=== PATIENT | female | born 1965 | race African-American/Black ===

== ENCOUNTER 2022-07-31 11:39 | Emergency (ER) | payer OTHER, SELFPAY ==
[2022-07-31 11:57] VITALS: BP 116/62; PULSE 70; RESP 15; TEMP 36.5; O2SAT 100
--- NOTE | 2022-07-31 12:26 | ED.GENADULT ---
HPI - General Adult General Chief complaint: Abdominal Pain Stated complaint: nausea after taking abx, cp - feels like heartburn Time Seen by Provider: 07/31/22 11:55 History of Present Illness HPI narrative: This is a 57-year-old female presenting to the ED after having a root canal several days ago. Since then she has been having continued pain. She has been on multiple antibiotics including Septra and a fragile, a Medrol Dosepak and was recently prescribed Tylenol with codeine. After she took Tylenol codeine she felt nauseous and felt like she could not stand. She then called an ambulance and was brought to the emergency department. the patient was concerned that she was having an allergic reaction. She did not develop urticarial hives, wheezing, sensation of throat closure or diarrhea. She did say that she felt like she was having trouble breathing and some burning chest pain that has since resolved. At this time the patient states she has not slept in a week due to dental pain. She would like to get her pain under control and then go home to follow-up with her oral surgeon outpatient. Related Data Home Medications Medication Instructions Recorded Confirmed adalimumab 40 mg/0.8 mL 40 mg subcut ONCE 04/15/22 subcutaneous syringe kit (Humira) azathioprine 50 mg tablet 50 mg PO DAILY 04/15/22 calcium citrate 315 mg 1 tablet PO DAILY 04/15/22 calcium-vitamin D3 6.25 mcg (250 unit) tablet (Citracal + Vitamin D Maximum) hydroxyzine HCl 25 mg tablet 25 mg PO QID PRN 04/15/22 prednisolone 5 mg tablet 2.5 mg PO BID 04/15/22 Allergies Allergy/AdvReac Type Severity Reaction Status Date / Time No Known Allergies Allergy Verified 04/15/22 10:20 Review of Systems Review of Systems: CONSTITUTIONAL: Denies night sweats. EYES: No eye pain ENT: Denies rhinorrhea CARDIOVASCULAR: Denies palpitations RESPIRATORY: Denies hemoptysis GASTROINTESTINAL: Denies hematemesis GENITOURINARY: Denies hematuria. SKIN: Denies rash MUSCULOSKELETAL: Denies myalgia. NEUROLOGIC: Denies weakness. PSYCHIATRIC: Denies delusions PMFSH Past Medical History Medical History Anxiety Crohn disease Ulcer Surgical History Surgical History S/P laparoscopic surgery S/P partial hysterectomy Tubal ligation status Family History Family History Other Asthma Cerebrovascular accident Diabetes mellitus Hypertension Social History Social History Smoking status: Never smoker Alcohol intake: never Substance use: never Exam Narrative: APPEARANCE: No apparent distress. HEENT: EYES: PERRLA/EOMI, NOSE: Normal no drainage NECK: Supple, Trachea midline RESPIRATORY: CTAB, No increased work of breathing. CARDIOVASCULAR: S1S2 appreciated ABDOMINAL: Soft, nontender, nondistended, MUSCULOSKELETAl: No obvious deformities NEURO: Alert. Moving 4/4 extremities SKIN:: Warm, dry. Normal color PSYCHIATRIC: Normal affect Course Vital Signs Vital signs: Vital Signs Temperature 97.7 F 07/31/22 11:57 Pulse Rate 70 07/31/22 11:57 Respiratory Rate 15 07/31/22 11:57 Blood Pressure 116/62 07/31/22 11:57 Pulse Oximetry 100 07/31/22 11:57 Temperature 97.7 F 07/31/22 11:57 Pulse Rate 81 07/31/22 13:07 Respiratory Rate 14 07/31/22 13:07 Blood Pressure 111/63 07/31/22 13:07 Pulse Oximetry 100 07/31/22 13:07 Medical Decision Making MDM Narrative Medical decision making narrative: This is a 57-year-old female presenting ED after having a poor reaction to codeine. It does not appear to be a true allergic reaction is there are no hives, wheezing, GI symptoms and it resolved rather quickly. After speaking with the patient further appears that she is exhausted and she has
--- NOTE | 2022-07-31 12:28 | ECG_ITS ---
Measurements Intervals [place] Rate: 69 P: 80 VA: 153 QRS: 74 QRSD: 78 T: 60 QT: 398 QTc: 427 Interpretive Statements SINUS RHYTHM NORMAL ECG NO PREVIOUS ECG AVAILABLE FOR COMPARISON Electronically Signed On 07-31-2022 13:23:15 CDT by Oni Moncada D.O.
[2022-07-31] MEDS: KETOROLAC 15 MG/ML VIAL (*BKC) IV PUSH (12:49)
[2022-07-31] MEDS: SODIUM CHLORIDE 0.9% IV 1,000 ML 999 ML IV CONT (12:51)
[2022-07-31 13:07] VITALS: BP 111/63; PULSE 81; RESP 14; O2SAT 100
[2022-07-31 13:07] LABS: Basophils Absolute Auto 0.1 K/mm3 (0.0-0.1); Basophils Percent Auto 0.7 % (0.2-1.2); Eosinophils Absolute Auto 0.1 K/mm3 (0-0.3); Eosinophils Percent Auto 0.5 % (0-4.4); Hematocrit 43.1 % (37.0-47.0); Hemoglobin 13.6 g/dL (12.0-15.0); Immature Granulocyte Absolute 0.05 K/mm3 (0.00-0.031); Immature Granulocyte Percent A 0.4 % (0-0.5); Lymphocytes Absolute Auto 3.93 K/mm3 (0.9-3.2); Mean Corpuscular HGB Conc 31.6 g/dl (32-36); Mean Corpuscular Hemoglobin 30.3 pg (26-34); Monocytes Absolute Auto 1.8 K/mm3 (0.1-0.6); Neutrophils Absolute Auto 8.1 K/mm3 (1.3-6.7); Neutrophils Percent Auto 57.4 % (45.5-73.1); Platelet Count Result 290 k/mm3 (150-375); Red Blood Count 4.49 M/mm3 (4.2-5.4); Red Cell Distribution Width 13.3 % (11.5-14.5); White Blood Count 14.1 K/mm3 (4.5-10.0)
[2022-07-31 13:19] LABS: Anion Gap 11 mmol/L (8-16); Blood Urea Nitrogen 16 mg/dL (7-17); Calcium 9.4 mg/dL (8.4-10.2); Carbon Dioxide 28 mmol/L (22-30); Chloride 102 mmol/L (98-107); Estimated CRCL calculation 65 ml/min; Estimated Glomerular Filt Rate > 60; Glucose 115 mg/dL (65-110); Potassium 3.7 mmol/L (3.4-5.0); Sodium 141 mmol/L (137-145)
[2022-07-31 14:41] VITALS: BP 106/86; PULSE 85; RESP 17; O2SAT 100
== END 2022-07-31 14:43 | disposition home or self-care (01) ==
PROVIDERS: Emergency Provider Emergency Medicine
DX: K08.89 Other specified disorders of teeth and supporting structures (principal); R11.0 Nausea; R53.1 Weakness; T40.2X5A Adverse effect of other opioids, initial encounter; Z98.818 Other dental procedure status; K50.90 Crohn's disease, unspecified, without complications
CPT/HCPCS: 36415; 80048; 85025; 93005; 96365; 96375; 99284; J0131; J1100; J1885; J7030

== ENCOUNTER 2024-05-09 10:24 | Outpatient (CLI) | payer OTHER, SELFPAY ==
[2024-05-09 10:59] LABS: Alanine Aminotransferase 19 U/L (6-35); Albumin Level 4.5 g/dL (3.5-5.1); Alkaline Phosphatase 112 U/L (38-126); Aspartate Amino Transferase 29 U/L (14-36); Bilirubin,Total 0.5 mg/dL (0.2-1.3)
== END 2024-05-09 10:25 | disposition home or self-care (01) ==
LOC: ANHLAB 10:25
PROVIDERS: Visit Provider Obstetrics & Gynecology
DX: R61 Generalized hyperhidrosis (principal); Z78.0 Asymptomatic menopausal state
CPT/HCPCS: 36415; 80076

== ENCOUNTER 2025-05-31 11:24 | Emergency (ER) | payer MEDICARE, OTHER, SELFPAY ==
--- NOTE | ~2025-05-31 | CT_ITS ---
EXAMINATION: CT orbit BI wo con DATE: 05/31/2025 17:05 INDICATION: Orbital cellulitis TECHNIQUE: Computed tomography (CT) of the orbits was performed without intravenous contrast. Automat ed exposure control and iterative reconstruction technique were employed. The dose-length product was 182.48 mGy-cm. COMPARISON: None FINDINGS: There appears to be mild preseptal edema along the inferior eyelid of the right orbit. Orbits are oth erwise normal with no post septal inflammatory stranding. No evident soft tissue gas or abscess. Mast oid air cells, middle ear cavities and paranasal sinuses are clear. Visualized maxillofacial bones ar e unremarkable with no fracture. Visualized portions of the parotid glands are normal and symmetric. Visualized portion of brain is unremarkable. IMPRESSION: 1. Mild right orbital preseptal edema along the inferior eyelid. Orbits are otherwise normal with no post septal stranding. Reviewed, dictated and finalized at location A. IMPRESSION: 1. Mild right orbital preseptal edema along the inferior eyelid. Orbits are oth erwise normal with no post septal stranding.
--- OUTSIDE RECORDS SUMMARY | 2025-05-31 11:28 | XMS_ITS | Encounter Summary ---
Author Organization [facility] Healthcare Address [address] [place] [address] Care Team Providers Care Package Collector Name Role Phone Abhijit Quispe MD Unavailable [phone] Robyn Richardson NP Unavailable [phone] Shruthi Oakley MD Unavailable [phone] Ivy Ugalde MD Unavailable [phone] Desirae Mukherjee [facility] Primary Care Provi phan Francisco Wild MD Unavailable [phone] Encounter Details Date Type Department Care Team (Late st Contact Info) Description 04/15/2025 Results Follow-Up [facility] Medical [facility] Family Medicine [address] [facility] [address] [place] [address] Desirae Mukherjee, [address] [place] [address] Dexa Axial Skeleton Bone Density 1 or 2 Site Social History Tobacco Use Types Packs/Day Years Used Date Smoking Tobacco: Never Smokeless Tobacco: Never Alcohol Use Standard Drinks/Week Comments No 0 (1 standard drink = 0.6 oz pur e alcohol) OASIS D0700: Social Isolation Answer Da te Recorded Frequency of experiencing loneliness or isolatio n Never 12/11/2022 OASIS A1250: Transportation Answer Date Recorded Lack of Transportation (Medical) No 12/11/2022 Lack of Transportation (Non-Medical) No 12/11/2022 Patient Unable or Declines to Respond No 12/11/2022 OASIS B1300: Health Literacy Answer Salty e Recorded Frequency of needing help to read materials from doctor or pharmacy Never 12/11/2022 AUDIT-C Answer Date Recorded Q1: How often do you have a drink containing alcohol? Never 03/15/2025 Q2: How many drinks containi ng alcohol do you have on a typical day when you are drinking? Patient does not drink Q3: How often do you have si x or more drinks on one occasion? Never 03/15/2025 PHQ-2 Answer Date Recorded PHQ-2 Total Score (If total score is 3 or more points, staff should administer the PHQ-9) 0 02/12/2025 Personal Safety Answer Date Recorded Have you ever been in or are you currently in a harmful physical or emotional relationship or is someone making you feel afraid or unsafe? Denies 03/14/2024 Comments No Sex and Gender Information Value Date Recorded Sex Assigned at Not on file Legal Sex Female 8:40 PM MANAGER FUNCTIONAL Gender Identity Female 01/27/2019 10:37 AM CDT Sexual Orientation Straight 10/10/2021 6: 35 AM MANAGER FUNCTIONAL documented as of this encounter Plan of Treatment Not on file documented as of this encounter Visit Diagnoses Not on filedocumented in this encounter Care Teams Package Collector Relationship Specialty Start Date End Date Desirae Mukherjee DNP [address] [facility] [address] [place] [address] [place] [address] PCP - General Family Medicine 02/12/25 Abhijit Quispe MD [phone] [place] [address] Surgeon Colon and Rectal Surgery 12/01/21 [place] [address] [place] [address] Nurse Practitioner Wound Care 02/27/23 [place] [address] [place] [address] Consulting Physician Dermatology 02/27/23 Ivy Ugalde MD [address] [facility] [address] [place] [address] Referring Physician Gastroenterology 04/22/24 Francisco Wild MD [address] [facility] [place] [address] Dermatology 03/27/25 documented as of this encounter
--- OUTSIDE RECORDS SUMMARY | 2025-05-31 11:28 | XMS_ITS | Encounter Summary ---
Author Organization [facility] Healthcare Address [address] [place] [address] Care Team Providers Care Direct Marketing Manager Name Role Phone Abhijit Quispe MD Unavailable [phone] Robyn Richardson NP Unavailable [phone] Shruthi Oakley MD Unavailable [phone] Ivy Ugalde MD Unavailable [phone] Desirae Mukherjee [facility] Primary Care Provi phan Francisco Wild MD Unavailable [phone] Reason for Visit * Reason Comments Eye Problem Right eye. Started T uesday and became worse last night. Has taken TYL. Very watery this morning. Encounter Details Date Type Department Care Team (Late st Contact Info) Description 05/31/2025 8:45 AM CDT Office Visit [facility] Medical [facility] Convenient Care at [address] [address] Lou Villeda PA [address] [place] [address] [address] [place] [address] Eye pain, right (Primary Dx) Social History Tobacco Use Types Packs/Day Years [...] on file Legal Sex Female 8:40 PM CURRICULUM ASSISTANT Gender Identity Female 01/27/2019 10:37 AM CDT Sexual Orientation Straight 10/10/2021 6: 35 AM CURRICULUM ASSISTANT documented as of this encounter Last Filed Vital Signs Vital Sign Reading Time Taken Comments Blood Pressure 132/74 05/31/2025 8:47 AM CDT Pulse 68 05/31/2025 8:47 AM CDT Temperature 36.5 C (97.7 F) 05/31/2025 8:47 AM CDT Respiratory Rate 20 05/31/2025 8:47 AM CDT Oxygen Saturation 98% 05/31/2025 8:47 AM CDT Inhaled Oxygen Concentration - - Weight 74.8 kg (165 lb) 05/31/2025 8:47 AM CDT Height 167.6 cm (5' 6) 05/31/2025 8:47 AM CDT Body Mass Index 26.63 05/31/2025 8:47 AM CDT documented in this encounter Plan of Treatment Not on file documented as of this encounter Visit Diagnoses Diagnosis Eye pain, right- Primary documented in this encounter Historical Medications * This list may reflect changes made after this encounter. upadacitinib (RINVOQ) 15 mg extended release tablet Take 1 tablet (15 mg total) by mouth daily 05/15/2025 added in this encounter Care Teams Direct Marketing Manager Relationship Specialty Start Date End Date Lonny Desirae JACOBY Michel [address] [facility] [place] [address] PCP - General Family Medicine 02/12/25 Abhijit Quispe MD [phone] [place] [address] Surgeon Colon and Rectal Surgery 12/01/21 [place] [address] [place] [address] Nurse Practitioner Wound Care 02/27/23 [place] [address] [place] [address] Consulting Physician Dermatology 02/27/23 Ivy Ugalde MD [address] [address] [place] [address] Referring Physician Gastroenterology 04/22/24 Francisco Wild MD [address] [facility] [place] [address] Dermatology 03/27/25 documented as of this encounter
--- OUTSIDE RECORDS SUMMARY | 2025-05-31 11:28 | XMS_ITS | Encounter Summary ---
Author Organization [facility] Healthcare Address [address] [place] [address] Care Team Providers Care Grazing Aide Name Role Phone Abhijit Quispe MD Unavailable [phone] Robyn Richardson NP Unavailable [phone] Shruthi Oakley MD Unavailable [phone] Ivy Ugalde MD Unavailable [phone] Desirae Mukherjee [facility] Primary Care Provi phan Francisco Wild MD Unavailable [phone] Encounter Details Date Type Department Care Team (Late st Contact Info) Description 04/15/2025 Results Follow-Up [facility] Medical Group Family Medicine [address] [facility] [address] [place] [address] Desirae Mukherjee, [address] [place] [address] Screening Mammogram Bilateral W Roney Social History Tobacco Use Types Packs/Day Years [...] on file Legal Sex Female 8:40 PM ARCHITECT NAVAL Gender Identity Female 01/27/2019 10:37 AM CDT Sexual Orientation Straight 10/10/2021 6: 35 AM ARCHITECT NAVAL documented as of this encounter Plan of Treatment Not on file documented as of this encounter Visit Diagnoses Not on filedocumented in this encounter Care Teams Grazing Aide Relationship Specialty Start Date End Date Desirae Mukherjee DNP [address] [facility] [address] [address] PCP - General Family Medicine 02/12/25 Abhijit Quispe MD [address] [facility] [phone] [place] [address] Surgeon Colon and Rectal Surgery 12/01/21 Robyn [place] [address] [place] [address] Nurse Practitioner Wound Care 02/27/23 [place] [address] [place] [address] Consulting Physician Dermatology 02/27/23 Ivy Ugalde MD [address] [place] [address] Referring Physician Gastroenterology 04/22/24 Francisco Wild MD [address] [facility] [place] [address] Dermatology 03/27/25 documented as of this encounter
--- OUTSIDE RECORDS SUMMARY | 2025-05-31 11:28 | XMS_ITS | Encounter Summary ---
Author Organization [facility] Healthcare Address [address] [place] [address] Care Team Providers Care Art Glass Setter Name Role Phone Abhijit Quispe MD Unavailable [phone] Robyn Richardson NP Unavailable [phone] Shruthi Oakley MD Unavailable [phone] Ivy Ugalde MD Unavailable [phone] Darrion Mukherjee [facility] Primary Care Provi phan Francisco Wild MD Unavailable [phone] Reason for Visit * Reason Onset Date Comments Symptom Based Call 05/31/2025 Encounter Details Date Type Department Care Team (Late st Contact Info) Description 05/31/2025 Telephone [facility] Family Medicine [address] [facility] [address] [place] [address] Darrion Mukherjee, [address] [address] Symptom Based Call Social History Tobacco Use Types Packs/Day Years [...] on file Legal Sex Female 8:40 PM RETAIL LOAN ORIGINATOR Gender Identity Female 01/27/2019 10:37 AM CDT Sexual Orientation Straight 10/10/2021 6: 35 AM RETAIL LOAN ORIGINATOR documented as of this encounter Miscellaneous Notes * Telephone Encounter - Isabell Keller - 05/31/2025 9:53 AM CDT Pt called in;spoke to darrion regarding symptoms/cc visit for swollen/infected/painful eye. Informed pt per Darrion-needs to go to ER. Pt expressed understanding * Telephone Encounter - Tatum Orona - 05/31/2025 9:40 AM CDT Symptom Based Call Chief Complaint(s): Severe pain/swelling in right eye Duration: Couple of days What type of symptom(s) is the patient experiencing? Red Flag. Is the patient concerned they are experiencing a medical emergency requiring an ambulance? No Additional Comments: Patient states she went to urgent care this morning and advised to go to ER due to being unable to treat. Patient did not go, requesting to speak with HAILEY Mukherjee for next steps of recommendation. Does message need to be routed? No Reason for Warm Transfer: Other (please explain): Red flag symptoms. Practice Accepted the Warm Transfer? Yes Additional Comments If YES above, and no barriers. documented in this encounter Plan of Treatment Not on file documented as of this encounter Visit Diagnoses Not on filedocumented in this encounter Care Teams Art Glass Setter Relationship Specialty Start Date End Date Darrion Mukherjee DNP [address] [facility] [address] [address] PCP - General Family Medicine 02/12/25 Abhijit Quispe MD [address] [facility] [phone] [place] [address] Surgeon Colon and Rectal Surgery 12/01/21 [place] [address] [place] [address] Nurse Practitioner Wound Care 02/27/23 Shruthi Oakley MD [id number] [place] [phone] Consulting Physician Dermatology 02/27/23 Ivy Ugalde MD [address] [address] [place] [address] Referring Physician Gastroenterology 04/22/24 Francisco Wild MD [address] [facility] [place] [address] Dermatology 03/27/25 documented as of this encounter
--- OUTSIDE RECORDS SUMMARY | 2025-05-31 11:28 | XMS_ITS | Continuity of Care Document ---
Author Name [facility] Organization [facility] Care Team Providers Care Rrts Name Role Phone [facility] Unavailable Unavailable Problems Combined list of problems from Department of Defense and Veterans Affairs facilities. It does not include entries that were removed or entered in error. Problem Status Onset Date Problem Type Date of Resolution Comments Source ILEITIS TERMINAL Active Condition DoD abdominal pain in the central upper belly (epigastric) Inactive Condition DoD UPPER RESPIRATORY INFECTION Inactive Condition Reviewed options with pt. Pt is mildly immunosuppresse d, but no fever. Offered observation vs empiric abx treatment - pt elects observation and sx rx for now. Pt may call in 7 days if no imprvmt for empiric abx rx (recommend azithromycin, do NOT recomm DoD Patient Education - Dietary Inactive Condition See 509 for details. 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 Medication Details Route Status Patient Instructions Prescription Expires Prescription Number Last Dispense Date Ordering Provider Order Date Order Qty Source AMOX TR-POTASSIU M CLAVULANATE (AMOXICILLI N/POTASSIUM CLAV), 875-125 MG, TABLET, ORAL, [employer], 100 ea. BOTTLE Active [id number] 2023 10 Pharmac y Data Transac tion Service Facilit y AMOX TR-POTASSIU M CLAVULANATE (AMOXICILLI N/POTASSIUM CLAV), 875-125 MG, TABLET, ORAL, SANDOZ, 20 ea. BOTTLE Active [id number] 2023 10 Pharmac y Data Transac tion Service Facilit y CLENPIQ (sodium picosulfate /magnesium oxide/citri c acid), 10-3.5/175, SOLUTION, ORAL, [employer], 350 ml BOTTLE Cancele d [id number] : 2023 0 Pharmac y Data Transac tion Service Facilit y CLENPIQ (sodium picosulfate /magnesium oxide/citri c acid), 10-3.5/175, SOLUTION, ORAL, [employer], 350 ml BOTTLE Active [id number] 4 2023 350 Pharmac y Data Transac tion Service Facilit y FLUCONAZOLE (FLUCONAZOL E), 150 MG, TABLET, ORAL, 'S LAB, 12 ea. BLIST PACK Active [id number] 4 2023 2 Pharmac y Data Transac tion Service Facilit y FLUTICASONE PROPIONATE (FLUTICASON E PROPIONATE) , 50MCG, SPRAY SUSP, NASAL, GALE LABS., 16 g AER W/ADAP Active [id number] 2023 16 Pharmac y Data Transac tion Service Facilit y HYOSCYAMINE SULFATE (HYOSCYAMIN E SULFATE), 0.125 MG, TAB SUBL, SUBLINGUAL, ACELLA PHARMACE, 100 ea. BOTTLE Active [id number] 2023 120 Pharmac y Data Transac tion Service Facilit y LEVOFLOXACI N (levofloxac in), 750 MG, TABLET, ORAL, CAMBER PHARMACE, 20 ea. BOTTLE Active [id number] 2023 5 Pharmac y Data Transac tion Service Facilit y MESALAMINE (mesalamine ), 1000 MG, SUPP.RECT, RECTAL, ZYDUS PHARMACEU, [address] Cancele d [id number] : 2023 0 Pharmac y Data Transac tion Service Facilit y RINVOQ (upadacitin ib), 15 MG, TAB ER 24H, ORAL, [employer], 30 ea. BOTTLE Active [id number] 2023 30 Pharmac y Data Transac tion Service Facilit y SKYRIZI ON-BODY (risankizum ab-rzaa), 360 MG/2.4, WEAR INJCT, SUBCUT, [employer], 2.4 ml CARTRIDGE Cancele d [id number] : 2023 0 Pharmac y Data Transac tion Service Facilit y TRAMADOL HCL (tramadol HCl), 50 MG, TABLET, ORAL, AMNEAL PHARMACE, 500 ea. BOTTLE Cancele d [id number] : 2023 0 Pharmac y Data Transac tion Service Facilit y TRAMADOL HCL (tramadol HCl), 50 MG, TABLET, ORAL, AMNEAL PHARMACE, 500 ea. BOTTLE Active [id number] 2023 28 Pharmac y Data Transac tion Service Facilit y Allergies, Adverse Reactions, Alerts Combined list of allergies from Department of Defense and Veterans Affairs facilities. It does not include entries that were removed or entered in error. Substance Category Reaction Severity Reaction type Status Date Reported Comments Source OTHER Drug allergy (disorder) Unknown active 01/13/2005 [facility] [place] [place] Immunizations Combined list of available immunizations from the Department of Defense and Veterans Affairs facilities. Immunization Series Date Given Administered By Site Reaction Lot Number CVX Code Drug Dry Pan Charger Status Comments Source COVID-19, mRNA, LNP-S, PF, 100 mcg or 50 mcg dose 2020 LIBBRA, [employer] (MOD) Not Given COVID-19, mRNA, LNP-S, PF, 100 mcg or 50 mcg dose DoD COVID-19, mRNA, LNP-S, PF, 100 mcg or 50 mcg dose 2020 MIHIR, [employer] (MOD) Not Given COVID-19, mRNA, LNP-S, PF, 100 mcg or 50 mcg dose DoD COVID-19, mRNA, LNP-S, PF, 100 mcg or 50 mcg dose 2020 ANTHONY, [employer] (MOD) Not Given COVID-19, mRNA, LNP-S, PF, 100 mcg or 50 mcg dose DoD INFLUENZA, INJECTABLE, QUADRIVALENT, PRESERVATIVE FREE 2018 150 complet ed [facility] tuberculin skin test; purified protein derivative solution, intradermal 1 2003 Unknown, Provider [id number] Sanofi Pasteur ([facility]) complet ed tuberculi n skin test; purified protein derivativ e solution, intraderm al DoD Encounters Combined list of: 1) Encounters from Department of Veterans Affairs facilities going backup to the last 18 months, not all VA inpatient encounters are included; 2) Encounters from the Department of Defense facilities going backup to 280 months. Location Location Details Encounter Type Encounter Number Reason For Visit Attending Provider ADM Date DC Date Status Disposition Source [facility] [place] [place] DIRECT [facility] FROM OTHER THAN ER OR [facility] [id number] CALLY JESUS 01/12 DISCHARGED HOME [facility] Jay MARTINEZ [place] [place] [facility] Jay MARTINEZ [place] [place] ER, DIRECT TO [facility] [id number] OPAL DUNCAN 04/03 DISCHARGED HOME [facility] Jay MARTINEZ [place] [place] [facility] Jay MARTINEZ [place] [place]Gas troentero logy [employer]aring) OUTPATIENT [id number] f/u hospita l YG SHER 04/07 Released w/o Limitations [facility]ON[facility] [place] [place]G astroen terolog y Resourc e Sharing ) [facility] [place] [place]Gas troentero logy Resource Sharing) OUTPATIENT [id number] f/u meds YG SHER 04/21 Released w/o Limitations [facility] [place] [place]G astroen terolog y Resourc e Sharing ) [facility] Jay JOHNSTONB [place] [place]Gas troentero logy Resource Sharing) OUTPATIENT [id number] f/u medss YG SHER 04/28 Released w/o Limitations [facility] [place] [place]G astroen terolog y Resourc e Sharing ) [facility] Jay JOHNSTONB [place] [place] ER, DIRECT TO [facility] [id number] AMINA SAMAYOA 05/07 DISCHARGED HOME [facility] [place] [place] [place] [facility] Jay MARTINEZ [place] [place]) INPATIENT [id number] high risk pt; Crohn's dz RJ ER, ABY 05/08 Inpatient- Still a Patient [facility] [place] [place]N utritio nal Medicin e) [facility] MARTINE[facility] [place] [place]Gas troentero logy Resource Sharing) OUTPATIENT [id number] medYG Faria 05/12 Released w/o Limitations [facility] MARTINE[facility] [place] [place]G astroen terolog y Resourc e Sharing ) [facility] MARTINEZ [place] [place]) INPATIENT [id number] MELANIE BONILLA Funmilayo 05/20 Inpatient- Still a Patient [facility] Jay PRESTONRajendra [place]N utritio nal Medicin e) [facility] MARTINEZ [place] [place] ER, [facility] TO [facility] [id number] OPAL DUNCAN 07/07 DISCHARGED HOME [facility] MARTINE[facility] [place] [place] [facility] MARTINE[facility] [place] [place] [place]Gas troentero logy Resource Sharing) OUTPATIENT [id number] f/u hospita l YG SHER 07/14 Released w/o Limitations [facility] [place] [place]G astroen terolog y Resourc e Sharing ) [facility]Fam lucy Practice Non-GME FHI1) OUTPATIENT [id number] throat culture PAUL LUGO 07/16 Released w/o Limitations [facility] [place]F amily Practic e Non-GME FHI1) [facility] MARTINE[facility] [place] [place]Gas troentero logy Resource Sharing) OUTPATIENT [id number] f/u crohns YG SHER 07/21 Released w/o Limitations [facility] [place] [place]G astroen terolog y Resourc e Sharing ) [facility] MARTINE[facility] [place] [place]Gas troentero logy Resource Sharing) OUTPATIENT [id number] f/u medYG Faria 07/23 Released w/o Limitations [facility] [place] [place]G astroen terolog y Resourc e Sharing ) [facility] MARTINEZ [place] [place]Gas troentero logy Resource Sharing[place] OUTPATIENT [id number] f/u rads CHRISTOS YG E 07/30 Released w/o Limitations [facility] [place] [place]G astroen terolog y Resourc e Sharing ) [facility] [place] [place]Gas troentero logy Resource Sharing) OUTPATIENT [id number] remicai de in fusion CHRISTOS YG E 08/04 Released w/o Limitations [facility] aJy JOHNSTONB ([facility] [place]G astroen terolog y Resourc e Sharing ) [facility] [place] [place]Fam lucy Practice Non-GME FHI2) OUTPATIENT [id number] rash on neck getting worse/t ried otc not helping PAUL LUGO 10/13 Released w/o Limitations [facility] Jay JOHNSTONB [place] [place]F amily Practic e Non-GME FHI2) [facility] [place] [place] [place]Gas troentero logy Resource Sharing) OUTPATIENT [id number] f/u YG SHER E 10/27 Released w/o Limitations [facility] JOHNSTON[facility] [place] [place]G astroen terolog y Resourc e Sharing ) [facility] [place] [place] [place]Fam lucy Practice Non-GME FHI1) TELE CONSULT [id number] Verific ation of surgica l procedu re PAUL LUGO 10/28 [facility] [place] [place] [place]F amily Practic e Non-GME FHI1) [facility] [place] [place] [place]Gas troentero logy Resource Sharing) OUTPATIENT [id number] f/u meds YG SHER E 11/05 Released w/o Limitations Medical Group [facility]ON[facility] [place] [place]G astroen terolog y Resourc e Sharing ) [facility] [employer] [place] [place]Fam lucy Practice Non-GME FHI1) TELE CONSULT [id number] Verific ation of Surgica l Procedu re. PAUL LUGO 12/21 [facility] [employer] [place] [place] [place]F amily Practic e Non-GME FHI1) [facility] [employer] ([facility] [place]Gas troentero logy Resource Sharing) OUTPATIENT [id number] b12 YG SHER 01/06 Released w/o Limitations [facility] Jay PRESTONRajendra ([facility] [place] [place]G astroen terolog y Resourc e Sharing ) [facility] MARTINEZ [place] [place] ER, DIRECT TO [facility] [id number] YVONNE BRIGGS CYNTHIA 01/10 DISCHARGED HOME [facility]ARTINE[facility] [place] [place] [place] [facility] [place] [place] [place] 0055) INPATIENT [id number] short d/c note YVONNE BRIGGS CYNTHIA 01/12 Inpatient- Still a Patient [facility] MARTINE[facility] [place] [place]I bwa Clinic 005) [facility]ARTINE[facility] [place] [place] [place]Gas troentero logy Resource Sharing) OUTPATIENT [id number] f/u hosp visit YG SHER 01/12 Released w/o Limitations [facility]ART[facility] [place] [place]G astroen terolog y Resourc e Sharing ) [facility] PRESTONRajendra [place] [place]) INPATIENT [id number] b PASCUAL BLAND 01/15 Inpatient- Still a Patient [facility] PRESTONRajendra ([facility]N utritio nal Medicin e) [facility] MARTINE[facility] ([facility] [place]Gas troentero logy Resource Sharing) OUTPATIENT [id number] jenkins andrzej cabello/ ENMA BRAR 01/20 Released w/o Limitations [facility] [place] [place] [place]G astroen terolog y Resourc e Sharing ) [facility] [place] [place] [place]Fam lucy Practice Non-GME FHI2) OUTPATIENT [id number] sinus infecti on ANEUDY DARBY 01/25 Released w/o Limitations [facility] [place] [place] [place]F amily Practic e Non-GME FHI2) [facility] [place] [place]Gas troentero logy Resource Sharing) OUTPATIENT [id number] f/u scope ENMA BRAR 02/17 Released w/o Limitations [facility] [place] [place] [place]G astroen terolog y Resourc e Sharing ) [facility] [place] [place] [place]Culinary Internship ecology) OUTPATIENT [id number] ovarian cyst/ER referra l [id number] EDILBERTO LOPEZ 04/27 Released w/o Limitations [facility] [place] [place] [place]G ynecolo gy) Procedures Combined list of: 1) Procedures from Department of Veterans Affairs facilities [facility], not all VA non-surgical procedures are included; 2) All procedures from the Department of Defense facilities. Procedure Procedure Type Code Date Perfomer Comments Sourc e UNLISTED SPECIAL SERVICE, PROCEDURE OR REPORT 02/03/2006 [facility] COMPUTERIZED AXIAL TOMOGRAPHY OF ABDOMEN 01/11/2006 [facility] INFUSION, NORMAL SALINE SOLUTION, 250 CC 01/09/2006 [facility] CULTURE, BACTERIAL; ANY OTHER SOURCE EXCEPT URINE, BLOOD OR STOOL, AEROBIC, WITH ISOLATION AND PRESUMPTIVE IDENTIFICATION OF ISOLATES 07/16/2005 [facility] COMPUTERIZED AXIAL TOMOGRAPHY OF ABDOMEN 07/09/2005 [facility] INJECTION, MORPHINE SULFATE, UP TO 10 MG 07/07/2005 [facility] COMPUTERIZED AXIAL TOMOGRAPHY OF ABDOMEN 05/08/2005 [facility] MEDICAL NUTRITION THERAPY; INITIAL ASSESSMENT AND INTERVENTION, INDIVIDUAL, [id number] WITH THE PATIENT, EACH 15 MINUTES 05/08/2005 [facility] INFUSION, NORMAL SALINE SOLUTION, 250 CC 05/07/2005 [facility] INFUSION, NORMAL SALINE SOLUTION, 250 CC 04/02/2005 [facility] ENDOSCOPIC POLYPECTOMY OF LARGE INTESTINE 01/16/2005 [facility] CLOSED [ENDOSCOPIC] BIOPSY OF LARGE INTESTINE 01/16/2005 [facility] COMPUTERIZED AXIAL TOMOGRAPHY OF ABDOMEN 01/16/2005 [facility] INFUSION, NORMAL SALINE SOLUTION, 250 CC 01/12/2005 [facility] ELECTROCARDIOGRAM, ROUTINE ECG WITH AT LEAST 12 LEADS; TRACING ONLY, WITHOUT INTERPRETATION AND REPORT 05/23/2004 [facility] COLORECTAL CANCER SCREENING; FECAL-OCCULT BLOOD TEST, 1-3 SIMULTANEOUS DETERMINATIONS 08/29/2003 [facility] SEDATION WITH OR WITHOUT ANALGESIA (CONSCIOUS SEDATION); INTRAVENOUS, INTRAMUSCULAR OR INHALATION 05/22/2003 [facility] INJECTION, KETOROLAC TROMETHAMINE, PER 15 MG 05/11/2003 [facility] Skin Lesion GENARO Prep Skin Lesion GENARO Prep [id number] 07/20/2005 ROGELIO SIERRA [facility] Nasopharyngeal Culture Streptococcus Group A Beta Hemolytic Nasopharyngeal Culture Streptococcus Group A Beta Hemolytic [id number] 07/20/2005 ROGELIO HEARD [facility] Medical Nutrition Therapy Initial A e ment, Intervention Medical Nutrition Therapy Initial Assessment, Intervention [id number] 05/08/2005 ABY CARTER [facility] Social History Combined list of available smoking, tobacco, and other social history from Department of Defense and Veterans Affairs facilities. Social History Type Response Date Comment Sour e This section is an empty social history section. DoD
--- OUTSIDE RECORDS SUMMARY | 2025-05-31 11:28 | XMS_ITS | Encounter Summary ---
Author Organization [facility] Address [address] [place] [address] Care Team Providers Care Air Intelligence Specialist Name Role Phone Cynthia Oakley MD Primary Care Provider [phone] Cynthia Oakley MD Primary Care Provider [phone] Kenneth Thayer MD Primary Care Provider [phone] Kenneth Thayer MD Primary Care Provider [phone] Kenneth Thayer MD Primary Care Provider Kenneth Thayer MD Primary Care Provider [phone] Kenneth Thayer MD Primary Care Provider [phone] Kenneth Thayer MD Primary Care Provider Kenneth Thayer MD Primary Care Provider [phone] Kenneth Thayer MD Primary Care Provider Kenneth Thayer MD Primary Care Provider Joaquim Ferguson MD Primary Care Provider Angi Chew MD Unavailable [phone] Encounter Details Date Type Department Care Team (Latest Contact Info) Description 12/17/2015 Abstract [facility] Madina Marin MD Social History Tobacco Use Types Packs/Day Years Used Date Smoking Tobacco: Never Assessed Comments Unknown Sex and Gender Information Value Date Recorded Sex Assigned at Female 01/11/2025 2:51 PM EDUCATIONAL ADMINISTRATOR Legal Sex Female 7:01 PM CDT Gender Identity Not on file Sexual Orientation Not on file documented as of this encounter Plan of Treatment Upcoming Encounters Date Type Department Care Team (Late st Contact Info) Description 06/04/2025 9:00 AM CDT Appointment [facility] [place] [address] Ame Callejas, [address] [place] [address] documented as of this encounter Visit Diagnoses Not on filedocumented in this encounter Additional Health Concerns Infection Onset Date Last Indicated Resolved Time COVID-19 Rule Out 11/14/2021 11/14/2021 11/14/2021 10:58 AM EDUCATIONAL ADMINISTRATOR COVID-19 Rule Out 10/29/2023 10/29/2023 10/29/2023 1:20 PM EDUCATIONAL ADMINISTRATOR COVID-19 Rule Out 01/03/2024 01/03/2024 01/03/2024 4:13 PM EDUCATIONAL ADMINISTRATOR COVID-19 Rule Out 04/19/2024 04/19/2024 04/19/2024 10:24 AM CDT documented as of this encounter Care Teams Air Intelligence Specialist Relationship Specialty Start Date End Date Cynthia Oakley MD PCP - General 04/19/17 12/19/17 Cynthia Oakley MD PCP - General 04/02/17 04/18/17 Kenneth Thayer MD [address] [place] [address] PCP - General 02/22/17 04/01/17 Kenneth Thayer MD [address] [place] [address] PCP - General 12/18/16 02/21/17 Kenneth Thayer MD [address] [place], [place] [address] PCP - General 12/11/16 12/17/16 Kenneth Thayer MD [address] [place], [place] [address] PCP - General 12/04/16 12/10/16 Kenneth Thayer MD [address] [place], [place] [address] PCP - General 08/17/16 12/03/16 Kenneth Thayer MD [address] [place], [place] [address] PCP - General 03/20/16 08/16/16 Kenneth Thayer MD [address] [place], [place] [address] PCP - General 01/06/16 03/19/16 Kenneth Thayer MD [address] [place], [place] [address] PCP - General 01/01/16 01/05/16 Kenneth Thayer MD [address] [place] [address] PCP - General 11/04/15 12/31/15 Joaquim Ferguson MD [address] [place] [address] PCP - General FAMILY PRACTICE 12/20/17 Angi Chew MD [address] [place] [address] Iris Administrative Support Assistant INTERVENTIONAL CARDIOLOGY 04/11/18 documented as of this encounter
--- OUTSIDE RECORDS SUMMARY | 2025-05-31 11:28 | XMS_ITS | Encounter Summary ---
Author Organization [facility] Address [address] [place] [address] Care Team Providers Care Duct Layer Supervisor Name Role Phone Joaquim Ferguson MD Primary Care Provider Angi Chew MD Unavailable [phone] Encounter Details Date Type Department Care Team (Late st Contact Info) Description 09/04/2024 Chips and Technologiest Message Enc [facility] [place] [address] Ame Callejas, [address] [place] [address] Antibiotic Social History Tobacco Use Types Packs/Day Years Used Date Smoking Tobacco: Never Passive Smoke Exposure: Never Smokeless Tobacco: Never Comments:doctor will dicuss if necessary Alcohol Use Standard Drinks/Week Comments No 0 (1 standard drink = 0.6 oz pur e alcohol) OASIS D0700: Social Isolation Answer Da te Recorded Frequency of experiencing loneliness or isolatio n Never 05/18/2024 OASIS A1250: Transportation Answer Date Recorded Lack of Transportation (Medical) No 05/18/2024 Lack of Transportation (Non-Medical) No 05/18/2024 Patient Unable or Declines to Respond No 05/18/2024 OASIS B1300: Health Literacy Answer Salty e Recorded Frequency of needing help to read materials from doctor or pharmacy Never 05/18/2024 PHQ-2 Answer Date Recorded Patient Health Questionnaire-2 Score 0 01/03/2024 Comments No Sex and Gender Information Value Date Recorded Sex Assigned at Female 01/11/2025 2:51 PM POULTRY FARM LABORER Legal Sex Female 7:01 PM CDT Gender Identity Not on file Sexual Orientation Not on file documented as of this encounter Plan of Treatment Upcoming Encounters Date Type Department Care Team (Late st Contact Info) Description 06/04/2025 9:00 AM CDT Appointment [facility] [place] [address] Ame Callejas, [address] [place] [address] documented as of this encounter Visit Diagnoses Not on filedocumented in this encounter Additional Health Concerns Assessment Noted Time PHQ-9 Depression Total Score: 0 11/27/19 22 10:23 AM POULTRY FARM LABORER documented as of this encounter Care Teams Duct Layer Supervisor Relationship Specialty Start Date End Date Joaquim Ferguson MD [address] [facility] [address] [place] [address] PCP - General FAMILY PRACTICE 12/20/17 Angi Chew MD [address] [facility] [address] [place] [address] [employer] Architect INTERVENTIONAL CARDIOLOGY 04/11/18 documented as of this encounter
--- OUTSIDE RECORDS SUMMARY | 2025-05-31 11:28 | XMS_ITS | Encounter Summary ---
Author Organization [facility] Address [facility] [place] [address] Care Team Providers Care Oil Well Logging Engineer Name Role Phone Cynthia Oakley MD Primary Care Provider [phone] Cynthia Oakley MD Primary Care Provider [phone] Kenneth Thayer MD Primary Care Provider Kenneth Thayer MD Primary Care Provider Kenneth Thayer MD Primary Care Provider Kenneth Thayer MD Primary Care Provider Kenneth Thayer MD Primary Care Provider Joaquim Ferguson MD Primary Care Provider Angi Chew MD Unavailable [phone] Encounter Details Date Type Department Care Team (Latest Contact Info) Description 09/04/2016 Abstract [facility] Madina Marin MD Social History Tobacco Use Types Packs/Day Years Used Date Smoking Tobacco: Never Assessed Comments Unknown Sex and Gender Information Value Date Recorded Sex Assigned at Female 01/11/2025 2:51 PM FINANCIAL REPORTING SPECIALIST Legal Sex Female 7:01 PM CDT Gender Identity Not on file Sexual Orientation Not on file documented as of this encounter Plan of Treatment Upcoming Encounters Date Type Department Care Team (Late st Contact Info) Description 06/04/2025 9:00 AM CDT Appointment [facility] [place] [address] Ame Callejas, [employer] [address] [place], [place] [id number] documented as of this encounter Visit Diagnoses Not on filedocumented in this encounter Additional Health Concerns Infection Onset Date Last Indicated Resolved Time COVID-19 Rule Out 11/14/2021 11/14/2021 11/14/2021 10:58 AM FINANCIAL REPORTING SPECIALIST COVID-19 Rule Out 10/29/2023 10/29/2023 10/29/2023 1:20 PM FINANCIAL REPORTING SPECIALIST COVID-19 Rule Out 01/03/2024 01/03/2024 01/03/2024 4:13 PM FINANCIAL REPORTING SPECIALIST COVID-19 Rule Out 04/19/2024 04/19/2024 04/19/2024 10:24 AM CDT documented as of this encounter Care Teams Oil Well Logging Engineer Relationship Specialty Start Date End Date Cynthia Oakley MD PCP - General 04/19/17 12/19/17 Cynthia Oakley MD PCP - General 04/02/17 04/18/17 Kenneth Thayer MD [address] [place], [place] [id number] PCP - General 02/22/17 04/01/17 Kenneth Thayer MD [address] [place], [place] [id number] PCP - General 12/18/16 02/21/17 Kenneth Thayer MD [address] [place] [address] PCP - General 12/11/16 12/17/16 Kenneth Thayer MD [address] [place] [address] PCP - General 12/04/16 12/10/16 Kenneth Thayer MD [address] [place] [address] PCP - General 08/17/16 12/03/16 Joaquim Ferguson MD [address] [place] [address] PCP - General FAMILY PRACTICE 12/20/17 Angi Chew MD [address] [place] [address] [place] Telecommunication Operator INTERVENTIONAL CARDIOLOGY 04/11/18 documented as of this encounter
[2025-05-31 11:29] VITALS: BP 167/87; PULSE 75; RESP 16; TEMP 36.6; O2SAT 100
--- OUTSIDE RECORDS SUMMARY | 2025-05-31 11:29 | XMS_ITS | Clinical Summary ---
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 level. I spoke with her tail worker, who saw her today. 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 She agree with risankizumab. I will give a course of prednisone as a bridge since she is so miserable. Rinvoq is an option in the future. This is mostly cutaneous Crohn's, rather than severe proctitis with perianal disease, so a proctectomy wont solve the problem. -Stop infliximab -start risankizumab -do not start Rinvoq -Start pred 40 mg x 7 days then taper by 10 mg q week -RTC 6-8 weeks Allergic reaction to contrast material 6 Low back pain 05/29/2015 Menopausal symptoms 08/23/2014 Insomnia 08/22/2014 Abnormal finding on breast imaging 02/06/2014 Assessment & Plan (02/14/2025 12:23 PM CDT): Need new mammogram orders Hemorrhoids 01/16/2013 Resolved Problems Problem Noted Date Diagnosed Date Resolved Date Crohn's disease with rectal bleeding 10/28/2023 02/09/2024 Panic attacks 03/31/2023 02/12/2025 Severe malnutrition 10/26/2022 02/13/20 25 Assessment & Plan (10/26/2022 1:14 PM BICYCLE FITTER): Supplements ordered Crohn's proctitis 10/25/2022 02/09/2024 Assessment & Plan (10/26/2022 1:13 PM BICYCLE FITTER): -inflammatory vs. 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 -continue prednisone for now -appreciate CRS input; will attempt to obtain CD-ROM with recent CT images from OSH in [place], [place] -GI consult in AM; NPO p MN in case of any plans for EUA/sigmoidoscopy in AM -IVFs, PRN pain and nausea meds overnight Weight loss, unintentional 10/25/2022 0 02/12/2025 Assessment & Plan (10/25/2022 11:33 PM BICYCLE FITTER): -2/2 poorly controlled CD -RD consult in AM -start nutritional supplements Bright red blood per rectum 12/19/2021 12/19/2021 COVID-19 11/14/2021 02/12/2025 Acute otitis externa of right ear 04/29/2021 02/12/2025 Pruritus 12/10/2020 02/12/2025 Elevated BP without diagnosis of hypertension 01/12/20 20 02/12/2025 Heart palpitations 01/12/2020 Difficult or painful urination 10/09/2019 02/12/2025 Stage 2 chronic kidney disease 10/09/2019 02/13/2025 Influenza B 12/22/2017 02/12/2025 Pyelonephritis 10/28/2015 02/12/2025 OAG (open angle glaucoma) persaud spect, low risk, bilateral 08/12/2015 02/12/2025 Crohn's disease of both smal l and large intestine 10/12/2014 02/09/2024 Ovarian cyst 01/25/2013 02/12/2025 Encounters Date Type Department Care Team Description 05/31/2025 8:45 AM CDT Office Visit [facility] [address] [address] Lou Villeda PA Eye pain, right (Primary Dx) 05/31/2025 Telephone [facility] Family Medicine [address] [place] [id number] Desirae Mukherjee DNP Symptom Based Call 05/29/2025 8:[address] [facility] OP Physical Therapy [address] [place] [address] [address] [place] [address] Ni Garces, PT Fecal incontinence due to anorectal disorder (Primary Dx); Pelvic floor dysfunction in female 05/22/2025 8:[address] [facility] OP Physical Therapy [address] [place] [address] [address] [place] [address] Ni Garces, PT Fecal incontinence due to anorectal disorder (Primary Dx); Pelvic floor dysfunction in female 05/17/2025 10:[address] [facility] OP Physical Therapy [address] [place] [address] [address] [place] [address] Ni Garces, PT Fecal incontinence due to anorectal disorder (Primary Dx); Pelvic floor dysfunction in female 04/17/2025 3:[address] [facility] OP Physical Therapy [address] [place] [address] [address] [place] [address] Ni Garces, PT Fecal incontinence due to anorectal disorder; Pelvic floor dysfunction in female 04/17/2025 Plan of Care Documentation [facility] OP Physical Therapy [address] [place] [address] 04/15/2025 Results Follow-Up [facility] [address] [place] [address] Desirae Mukherjee DNP Dexa Axial Skeleton Bone Density 1 or 2 Site 04/15/2025 Results Follow-Up [facility] [address] [place] [address] Desirae Mukherjee DNP Screening Mammogram Bilateral W Roney 04/10/2025 10:25 AM CDT - 04/10/2025 11:59 PM CDT Hospital Encounter [facility] Medical Office [facility] [address] [address] Postmenopausal; Encounter for screening Discharge Disposition: Discharge to home or self care 04/10/2025 10:15 AM CDT - 04/10/2025 11:59 PM CDT Hospital Encounter [facility] Medical Office [address] [address] Mass of right breast, unspecified quadrant; Abnormal mammogram of right breast; Encounter for screening mammogram for malignant neoplasm of breast Discharge Disposition: Discharge to home or self care 03/27/2025 10:32 PM CDT - 03/27/2025 11:59 PM CDT Hospital Encounter [facility] [address] [place] [address] Discharge Disposition: Discharge to home or self care 03/26/2025 2:15 PM CDT Office Visit [facility] Surgery [facility] [address] [place] [address] Abhijit Quispe MD Crohn's disease of both small and large intestine with intestinal obstruction (HCC) (Primary Dx); Colostomy care (HCC); Rectal pain; Pyoderma 03/19/2025 Telephone [facility] Medicine [address] [place] [address] [address] [place] [address] Desirae Mukherjee DNP Medical Question/Miscellane ous 03/15/2025 12:30 PM CDT Office Visit [facility] Family Medicine [address] [place] [address] [address] [place] [address] Desirae Mukherjee DNP Bilateral carpal tunnel syndrome (Primary Dx); Fecal incontinence due to anorectal disorder; Pelvic floor dysfunction in female; Crohn's disease of both small and large intestine with intestinal obstruction (HCC); Overweight with body mass index (BMI) of 25 to 25.9 in adult 03/02/2025 1:[address] [facility] OP Physical Therapy [address] [place] [address] [address] [place] [address] Paresthesia and pain of both upper extremities from Last 3 Months Immunizations Immunization Administration Dates Next Due Influenza, Quadrivalent, Spl it, Preservative Free, Intramuscular 09/10/2022,08/13/2021,08/30/2019,11/22 Influenza, Trivalent, Preser vative Free, Intramuscular 08/04/2024 Influenza, Unspecified 08/30/2019,09/15/2013 PPD TEST 08/08/2004 Pneumococcal Conjugate Pcv20 12/20/2023 Tdap 12/20/2023 ZOSTER Recombinant 06/28/2023,04/10/2023 Surgical History Surgery Date Site/Laterality Comments COLECTOMY 11/08/2008 - 11/07/2009 Ileocecectomy ANAL EXAMINATION UNDER ANESTHESIA 11/08/2013 - 11/07/2014 SECTION 1984, 1985, 1991 HYSTERECTOMY 11/08/1998 - 11/07/1999 ANAL EXAMINATION UNDER ANESTHESIA 12/16/2021 anal dilation, anal biopsy LAPAROSCOPIC COLOSTOMY 10/08/2022 - 11/07/2022 Laparoscopic diverting end sigmoid colostomy with laparoscopic adhesiolysis Medical History Medical History Date Comments Crohn's disease (HCC) 2004 GERD (gastroesophageal reflux disease) Covid-19 11/14/2021 Pyelonephritis GI (gastrointestinal bleed) Peptic ulceration Autoimmune disease Infection Family History Medical History Relation Name Comments Stroke Mother Stroke Anesthesia problems Neg Hx Relation Name Status Comments Mother Stroke Social History Tobacco Use Types Packs/Day Years Used Date Smoking Tobacco: Never Smokeless Tobacco: Never Tobacco Cessation:Counseling Given: Not Answered Alcohol Use Standard Drinks/Week Comments No 0 [...] on file Legal Sex Female 8:40 PM BICYCLE FITTER Gender Identity Female 01/27/2019 10:37 AM CDT Sexual Orientation Straight 10/10/2021 6: 35 AM BICYCLE FITTER Obstetrics History Para Term AB IAB SAB Ectopic Multiple Livin g Live Births 3 Date Outcome GA Total Labor Labor/2nd/3rd Weight Sex Type Anes PTL Chey A1 A5 Name Clin Last Filed Vital Signs Vital Sign Reading [...] Mass Index 26.63 05/31/2025 8:47 AM CDT Plan of Treatment Health Maintenance Due Date Last Done Comments Hepatitis C Screening 1965 Regular Well Visit/Exam 18-64 1982 Covid-19 Vaccine ( season) 2024 07/09/2022, 09/12/2021, 02/03/2021, Additional history exists Influenza Vaccine (#1) 2025 , 09/10/2022, 08/13/2021, Additional history exists Depression Screening 02/12/2026 02/12/2025 Breast Cancer Screening-Mammogram 04/10/2026 04/10/2025, 05/08/2023, 04/20/2022, Additional history exists Colon Cancer Screening-Colonoscopy 09/04/2032 09/04/2022, 06/27/2021, 01/08/2020, Additional history exists DTaP/Tdap/Td Vaccine (2 - Td or Tdap) 12/20/2033 12/20/2023 Colon Cancer Screening-CT Colonography Discontinued 09/04/2022, 06/27/2021, 01/10/2021, Additional history exists Colon Cancer Screening-DNA Stool Discontinued 09/04/2022, 06/27/2021, 01/10/2021, Additional history exists Colon Cancer Screening-FIT Discontinued 09/04, 06/27/2021, 01/10/2021, Additional history exists Colon Cancer Screening-Sigmoidoscopy Discontinued 09/04/2022, 06/27/2021, 01/10/2021, Additional history exists Zoster Vaccine Completed 06/28/2023, 04/10/2023 Hepatitis B Screening Completed 09/02/2023 Pneumococcal vaccine <65 Aged Out 12/20/2023 No longer eligible based on patient's age to complete this topic Procedures Procedure Name Priority Date/Time Associated Diagnosis Comments DEXA AXIAL SKELETON BONE DENSITY 1 OR MORE SITES Schedule Routine, Read Routine (OP Routine) 04/10/2025 10:46 AM CDT Postmenopausal Encounter for screening SCREENING MAMMOGRAM BILATERAL W RONEY Schedule Routine, Read Routine (OP Routine) 04/10/2025 10:33 AM CDT Mass of right breast, unspecified quadrant Abnormal mammogram of right breast Encounter for screening mammogram for malignant neoplasm of breast CT BODY OUTSIDE REFERENCE Routine 03/27/2025 10:32 PM CDT COLONOSCOPY 09/04/2022 12:46 PM CDT from Last 3 Months or Most Recently Relevant to Health Maintenance Results * Dexa Axial Skeleton Bone Density 1 or 2 Site (04/10/2025 10:46 AM CDT) Anatomical Region Laterality Modality Body N/A Mammography 04/11/2025 7:36 AM CDT Narrative 04/11/2025 7:37 AM CDT EXAM DESCRIPTION: DEXA AXIAL SKELETON BONE DENSITY 1 OR MORE SITES REASON FOR STUDY: 59 y/o year old F with given history of: postmenopausal screening, Osteoporosis screening Cable Installation Manager/Model: TRELYS A (S/N [id number]) Facility LSC value of 0.022 for the AP spine, 0.027 for the femur, and 0.023 for the forearm. CLINICAL INFORMATION: Current height: 66 inches Maximum height: 67 inches Weight: 165 pounds Risk factors: Postmenopausal, steroid use, inflammatory bowel disease COMPARISON: None available FINDINGS: AP LUMBAR SPINE L1-L4: Total BMD is 0.902 g/cm2 T-score is -2.3 LEFT HIP: Total BMD is 0.880 g/cm2 T-score is -1.0 Femoral neck BMD is 0.747 g/cm2 T-score is -1.4 FRAX: 10 year risk for a major osteoporotic fracture is 5.1 %, 10 year risk for a hip fracture is 0.3 % Per National Osteoporosis Foundation guidelines, this patient does not meet the criteria for pharmacological treatment of patients with FRAX 10 year major osteoporotic fracture risk scores of = or greater than 20% or a 10 year probability of a hip fracture = or greater than 3%, to reduce fracture risk. Additional factors such as frequent falls are not represented in FRAX and warrant individual clinical judgment. IMPRESSION: Low bone mass REFERENCE: Bone mineral density: T-Score: Normal (T-score above or = -1.0) Low bone mass (T-score between -1.0 and -2.5) replaces the previously used term osteopenia Osteoporosis (T-score = or below -2.5) Z-Score: Within the expected range for age (Z-score above -2.0) Below the expected range for age (Z-score is -2.0 or below) Please see below follow up recommendations. Medical evaluation for secondary causes of low bone mineral density may be appropriate. FRAX is a World Health Organization validated fracture risk assessment tool that calculates a person's 10 year probability of a major osteoporosis related fracture and hip fracture. According to the National Osteoporosis Foundation guidelines, postmenopausal women and men age 50 or older with low bone mass and a 10 year probability of a major osteoporosis related fracture = or greater than 20% or a 10 year probability of a hip fracture = or greater than 3% should be considered for pharmacological treatment for the prevention of osteoporosis. For further information, including treatment recommendations, please refer to the 2019 ISCD Official Positions (http://www.iscd.org) and the NOF's Clinician's Guide to Prevention and Treatment of Osteoporosis (http://www.nof.org/professionals/clinical-guidelines) THIS IS AN ELECTRONICALLY VERIFIED FINAL REPORT 04/11/2025 7:37 AM - Electronically signed by Richardson Guo M.D. MF: MOMO Report ID: [id number] Reading Location: [id number] Note Richardson Guo MD - 04/11/2025 EXAM DESCRIPTION: DEXA AXIAL SKELETON BONE DENSITY 1 OR MORE SITES REASON FOR STUDY: 59 y/o year old F with given history of:postmenopausal screening, Osteoporosis screening Cable Installation Manager/Model: [employer] A (S/N [id number]) Facility LSC value of 0.022 for the AP spine, 0.027 for the femur, and0.023 for the forearm. CLINICAL INFORMATION: Current height: 66 inches Maximum height: 67 inches Weight: 165 pounds Risk factors: Postmenopausal, steroid use, inflammatory bowel disease COMPARISON: None available FINDINGS: AP LUMBAR SPINE L1-L4: Total BMD is 0.902 g/cm2 T-score is -2.3 LEFT HIP: Total BMD is 0.880 g/cm2 T-score is -1.0 Femoral neck BMD is 0.747 g/cm2 T-score is -1.4 FRAX: 10 year risk for a major osteoporotic fracture is 5.1 %, 10 year risk fora hip fracture is 0.3 % Per National Osteoporosis Foundation guidelines, this patient does notmeet the criteria for pharmacological treatment of patients with FRAX 10 yearmajor osteoporotic fracture risk scores of = or greater than 20% or a 10 year probability of a hip fracture = or greater than 3%, to reduce fracturerisk. Additional factors such as frequent falls are not represented in FRAX and warrant individual clinical judgment. IMPRESSION: Low bone mass REFERENCE: Bone mineral density: T-Score: Normal (T-score above or = -1.0) Low bone mass (T-score between -1.0 and -2.5) replaces thepreviously used term osteopenia Osteoporosis (T-score = or below -2.5) Z-Score: Within the expected range for age (Z-score above -2.0) Below the expected range for age (Z-score is -2.0 or below) Please see below follow up recommendations. Medical evaluation forsecondary causes of low bone mineral density may be appropriate. FRAX is a World Health Organization validated fracture risk assessmenttool that calculates a person's 10 year probability of a major osteoporosisrelated fracture and hip fracture. According to the National OsteoporosisFoundation guidelines, postmenopausal women and men age 50 or older with low bonemass and a 10 year probability of a major osteoporosis related fracture = or greater than 20% or a 10 year probability of a hip fracture = or greaterthan 3% should be considered for pharmacological treatment for the preventionof osteoporosis. For further information, including treatment recommendations, please referto the 2019 ISCD Official Positions (http://www.iscd.org) and the NOF's Clinician's Guide to Prevention and Treatment of Osteoporosis (http://www.nof.org/professionals/clinical-guidelines) THIS IS AN ELECTRONICALLY VERIFIED FINAL REPORT 04/11/2025 7:37 AM - Electronically signed by Richardson Guo M.D. MF: MOMO Report ID: [id number] Reading Location: [place] [address] Desirae Mukherjee DNP IMG DXA PROCEDURES Final Result * Screening Mammogram Bilateral W Roney (04/10/2025 10:33 AM CDT) Anatomical Region Laterality Modality Breast Bilateral Mammography Impressions 04/10/2025 1:09 PM CDT Bilateral No evidence of malignancy in either breast. OVERALL BI-RADS FINAL ASSESSMENT: 1 - Negative RECOMMENDATION: Recommend bilateral annual screening mammography. Narrative 04/10/2025 1:09 PM CDT EXAMINATION: Screening Mammogram Bilateral W Roney: 04/10/2025 COMPARISON: Relevant prior outside studies available at the time of interpretation were reviewed. TECHNIQUE: Mammography was performed with 2D and digital breast tomosynthesis (DBT) images. CAD was utilized. BREAST PARENCHYMAL COMPOSITION: The breasts are heterogeneously dense, which may obscure small masses. FINDINGS: Bilateral There is no suspicious mass, calcification, or architectural distortion in either breast. There has been no suspicious change. Desirae Mukherjee DNP G MAMMO PROCEDURE S Final Result * CT Body Outside Reference (03/27/2025 10:32 PM CDT) Impressions [facility] - 03/27/2025 10:32 PM CDT These images are for Reference purposes only and have not been reviewed by [facility] Radiology. There will be no report generated by a [facility] Radiologist. Narrative [facility] - 03/27/2025 10:32 PM CDT EXAMINATION: Images For Reference Purposes Only Abhijit Quispe MD IMG CT PROCEDURES Final Resu lt [facility] * COLONOSCOPY (09/04/2022 12:46 PM CDT) Anatomical Region Laterality Modality Other Narrative Procedure Note Martha Chong MD - 09/04/2022 12:46 PM CDT ENDOSCOPY LAB Patient Name: Monica Marie Procedure Date: 09/04/2022 12:46PM Date of : 1965 Admit Type: Outpatient Age: 57 Gender: Female Attending MD: Martha Chong M.D. Room: [facility] ENDOSCOPY ROOM 01 Note Status: Finalized Procedure: Colonoscopy Indications: Disease activity assessment of Crohn's disease ofthe small bowel and colon, on Humira 40mg weekly Providers: Martha Chong M.D. Referring MD: Joaquim Ferguson M.D. Medicines: Monitored Anesthesia Care Complications: No immediate complications. Estimated Blood Loss: Estimated blood loss: none. Procedure: Pre-Anesthesia Assessment: - The risks and benefits of the procedure and the sedation options and risks were discussed with the patient. All questions were answered and informed consent was obtained. - Pre-procedure physical examination revealed no contraindications to sedation. The benefits, risks and alternatives of theprocedure and sedation were discussed and informed consentwas obtained. All questions were answered. Please referto the signed informed consent document in the medical record. The scope was passed under direct vision.The [id number] was introduced through the anusand advanced to the terminal ileum. The colonoscopy was performed without difficulty. The patient tolerated the procedure well. The quality of the bowel preparation was excellent. Bowel prep wasadministered using a split dose. Findings: An anal fissure was found on perianal exam with mild stricturingnoted but the PCF scope was able to transverse without any difficulty. A localized area of moderately friable mucosa with contact bleedingand inflammation was found at the anus. The colon (entire examined portion) appeared normal. There was evidence of a prior end-to-side ileo-colonic anastomosis in the proximal transverse colon. This was patent and was characterizedby healthy appearing mucosa. The anastomosis was traversed. The terminal ileum appeared normal. Impression: - Anal fissure found on perianal exam. - Friability with contact bleeding at the anus. - The entire examined colon is normal. - Patent end-to-side ileo-colonic anastomosis, characterized by healthy appearing mucosa. - The examined portion of the ileum was normal. - No specimens collected. Recommendation: - Discharge patient to home (ambulatory). - Return to GI clinic as previously scheduled. - Active inflammation, fissure and friability inthe anal canal - Contact Information: During normal business hours - [facility] [place] Coord[facility]: [phone] After hours, evening, nights, weekends and holidays- Please call the hospital clarifier operator helper at and ask for the GI fellow donor floor technician. Attending Participation: I personally performed the entire procedure. Electronically signed by Martha Chong M.D. Martha Chong M.D. 09/04/2022 1:51:49 PM Number of Addenda: 0 Note Initiated On: 09/04/2022 12:46 PM Martha Chong MD ENDOSCOPY PROCEDURE S Final Result from Last 3 Months or Most Recently Relevant to Health Maintenance Insurance [facility] [place] [address] [facility] CLAIM[facility] Address: [address] [place] [address] [facility] [employer] MEDICARE [facility] Advance Directives For more information, please contact: [phone] * Full Code (Latest Code Status on File) Date Activated Date Inactivated Comments 10/25/2022 8:15 PM 11/05/2022 8:57 PM * Full Code Date Activated Date Inactivated Comments 09/04/2022 12:18 PM 09/04/2022 6:59 PM * Full Code Date Activated Date Inactivated Comments 09/04/2022 12:18 PM 09/04/2022 12:18 PM * Full Code Date Activated Date Inactivated Comments 12/19/2021 12:40 AM 12/20/2021 8:19 PM * Full Code Date Activated Date Inactivated Comments 06/27/2021 12:45 PM 06/27/2021 8:28 PM Care Teams Landscaper Relationship Specialty Start Date End Date Desirae Mukherjee DNP [address] [facility] [address] [address] PCP - General Family Medicine 02/12/25 Abhijit Quispe MD [id number] [place] [address] Surgeon Colon and Rectal Surgery 12/01/21 [place] [address] [place] [address] Nurse Practitioner Wound Care 02/27/23 [place] [address] [place] [address] Consulting Physician Dermatology 02/27/23 Ivy Ugalde MD [address] [facility] [address] [place] [address] Referring Physician Gastroenterology 04/22/24 Francisco Wild MD [address] [place] [address] Dermatology 03/27/25
--- OUTSIDE RECORDS SUMMARY | 2025-05-31 11:29 | XMS_ITS | Encounter Summary ---
Author Organization [facility] Healthcare Address [address] [place] [address] Care Team Providers Care Middle Card Tender Name Role Phone Joaquim Ferguson MD Primary Care Provider [phone] Abhijit Quispe MD Unavailable [phone] Martha Chong MD Unavailable + [phone] Robyn Richardson NP Unavailable [phone] Shruthi Oakley MD Unavailable [phone] Rylan March MD Unavailable [phone] Ivy Ugalde MD Unavailable [phone] Desirae Mukherjee [facility] Primary Care Provi phan Francisco Wild MD Unavailable [phone] Reason for Visit * Reason Onset Date Comments follow up for IV extravastation during CT scan 0 n 05/07/21 05/08/2021 Encounter Details Date Type Department Care Team (Late st Contact Info) Description 05/08/2021 Telephone [facility] Imaging [address] [address] Mela Sofia RN follow up for IV extravastation during CT scan 0n 05/07/21 Social History Tobacco Use Types Packs/Day Years Used Date Smoking Tobacco: Never Smokeless Tobacco: Never Alcohol Use Standard Drinks/Week Comments No 0 (1 standard drink = 0.6 oz pur e alcohol) AUDIT-C Answer Date Recorded Q1: How often do you have a drink containing alc ohol? Never 01/10/2021 Average Number of Drinks Not on file 021 Q3: How often do you have si x or more drinks on one occasion? Never 01/10/2021 Comments No Sex and Gender Information Value Date Recorded Sex Assigned at Not on file Legal Sex Female 8:40 PM FOURCHETTE SEWER Gender Identity Female 01/27/2019 10:37 AM CDT Sexual Orientation Straight 10/10/2021 6: 35 AM FOURCHETTE SEWER documented as of this encounter Plan of Treatment Not on file documented as of this encounter Visit Diagnoses Not on filedocumented in this encounter Additional Health Concerns Infection Onset Date Last Indicated Resolved Time COVID: Recovered Comment:COVID+ 11/14/21. Meets COVID Recovered criteria. Results in care everywhere. Kristin Susanna 12/10/2021 11/24/2021 12/10/2021 03/14/2022 3:05 AM C DT documented as of this encounter Care Teams Middle Card Tender Relationship Specialty Start Date End Date Joaquim Ferguson MD [address] [address] PCP - General 02/14/18 02/11/25 Desirae Mukherjee DNP [address] [address] PCP - General Family Medicine 02/12/25 Abhijit Quispe MD [address] [phone] [place] [address] Surgeon Colon and Rectal Surgery 12/01/21 Martha Chong MD [address] [phone] [place] [address] Gastroenterology 12/07/21 12/15/23 [place] [address] [place] [address] Nurse Practitioner Wound Care 02/27/23 [place] [address] [place] [address] Consulting Physician Dermatology 02/27/23 Rylan March MD [address] [facility] [address] [place] [address] Consulting Physician Gastroenterology 12/16/23 4 Ivy Ugalde MD [address] [facility] [address] [place] [address] Referring Physician Gastroenterology 04/22/24 Francisco Wild MD [address] [facility] [place] [address] Dermatology 03/27/25 documented as of this encounter
--- OUTSIDE RECORDS SUMMARY | 2025-05-31 11:29 | XMS_ITS | Referral Summary ---
Author Organization [facility] Medical [facility] [address] [facility] [place] [address] Care Team Providers Care Cutter Finisher Name Role Phone Abhijit Quispe MD Unavailable [phone] Robyn Richardson NP Unavailable [phone] Shruthi Oakley MD Unavailable [phone] Ivy Ugalde MD Unavailable [phone] Desirae Mukherjee DNP Primary Care Provi phan Francisco Wild MD Unavailable [phone] Encounters Date Type Department Care Team Description 05/31/2025 Telephone [facility] Family Medicine [address] [facility] [address] [place] [address] Desirae Mukherjee DNP Symptom Based Call 05/31/2025 8:45 AM CDT Office Visit [facility] at [address] [address] Lou Villeda PA Eye pain, right (Primary Dx) 05/29/2025 8:00 AM CDT Therapy [facility] OP Physical Therapy [address] [facility] [address] [place] [address] Ni Garces, UBALDO Fecal incontinence due to anorectal disorder (Primary Dx); Pelvic floor dysfunction in female 05/22/2025 8:00 AM CDT Therapy [facility] OP Physical Therapy [address] [place] [address] [address] [place] [address] Ni Garces, PT Fecal incontinence due to anorectal disorder (Primary Dx); Pelvic floor dysfunction in female 05/17/2025 10:30 AM CDT Therapy [facility] OP Physical Therapy [address] [place] [address] [address] [place] [address] Ni Garces, PT Fecal incontinence due to anorectal disorder (Primary Dx); Pelvic floor dysfunction in female 04/17/2025 Plan of Care Documentation [facility] OP Physical Therapy [address] [place] [address] [address] [place] [address] 04/17/2025 3:15 PM CDT Therapy [facility] Physical Therapy [address] [place] [address] [address] [place] [address] Ni Garces, PT Fecal incontinence due to anorectal disorder; Pelvic floor dysfunction in female 04/15/2025 Results Follow-Up [facility] [address] [place] [address] [address] [place] [address] Desirae Mukherjee DNP Dexa Axial Skeleton Bone Density 1 or 2 Site 04/15/2025 Results Follow-Up [facility] [address] [place] [address] [address] [place] [address] Desirae Mukherjee DNP Screening Mammogram Bilateral W Roney 04/10/2025 10:25 AM CDT - 04/10/2025 11:59 PM CDT Hospital Encounter [facility] [address] [place] [address] Postmenopausal; Encounter for screening Discharge Disposition: Discharge to home or self care 04/10/2025 10:15 AM CDT - 04/10/2025 11:59 PM CDT Hospital Encounter [facility] Office [address] [place] [address] Mass of right breast, unspecified quadrant; Abnormal mammogram of right breast; Encounter for screening mammogram for malignant neoplasm of breast Discharge Disposition: Discharge to home or self care 03/27/2025 10:32 PM CDT - 03/27/2025 11:59 PM CDT Hospital Encounter [facility] [address] [place] [address] Discharge Disposition: Discharge to home or self care 03/26/2025 2:15 PM CDT Office Visit [facility] Surgery [facility] Floor [address] [place] [address] Abhijit Quispe MD Crohn's disease of both small and large intestine with intestinal obstruction (HCC) (Primary Dx); Colostomy care (HCC); Rectal pain; Pyoderma 03/19/[address] [place] [address] Desirae Mukherjee DNP Medical Question/Miscellane ous 03/15/2025 12:30 PM CDT Office Visit [address] [place] [address] Desirae Mukherjee DNP Bilateral carpal tunnel syndrome (Primary Dx); Fecal incontinence due to anorectal disorder; Pelvic floor dysfunction in female; Crohn's disease of both small and large intestine with intestinal obstruction (HCC); Overweight with body mass index (BMI) of 25 to 25.9 in adult 03/02/2025 1:30 PM CDT Therapy [facility] Physical Therapy [address] [place] [address] [address] [place] [address] Paresthesia and pain of both upper extremities from Last 3 Months Allergies Active Allergy Reactions Criticality Noted Date [...] Active triamcinolone (Kenalog) 0.147 mg/gram topical spray [place] skin around stoma every 3 days with pouch change 63 g 1 04/07/20 25 Active diclofenac sodium (VOLTAREN) 1 % [...] PM CDT): Recommend wearing wrist splints Recommend adkn-hyd-fnvescy pain medication as needed Fecal incontinence due [...] Plan (02/14/2025 12:25 PM CDT): Managed by [facility] Overweight with body mass in [...] estrogen Assessment & Plan (11/18/2023 12:16 PM SLEEVE IRONER): Currently the patient is only on Stelara and this has a reassuring safety profile compared to previous treatments and steroids. Her vaginal atrophy could be a substantial contributor to her frequent UTIs and we strongly support her trying vaginal estrogen and getting evaluation from a vulvar specialist. 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 We will offer her a course of desipramine which hopefully will have fewer side effects. She was advised that this may help with the chronic rectal pressure but will likely take several weeks to see the benefit Assessment & Plan (12/15/2023 5:53 PM SLEEVE IRONER): The patient certainly has had a lot [...] benefit. Assessment & Plan (10/26/2022 1:13 PM SLEEVE IRONER): -2/2 severe refractory crohns proctitis -CRS recs topical lidocaine and PRN oxycodone and IV dilaudid for breakthrough Assessment & Plan (10/25/2022 11:32 PM SLEEVE IRONER): -2/2 crohn's dz -prn dilaudid Crohn's disease with complication 12/01/2021 Overview (12/01/2021): Added automatically from request for surgery [id number] Iron deficiency anemia francisco mi to inadequate [...] initially Pentasa Infliximab 6MP Prednisone tapers 2008 ICR for stricturing disease (Dr. Braxton) [...] was so miserable she was admitted in Oct and had it done inpt. 10/28/2022 diverting [...] cutaneous Crohn's. Follows with stoma nurse at [facility]. Using topical tacro While on infliximab and [...] team. Assessment & Plan (12/15/2023 5:51 PM SLEEVE IRONER): The patient is strongly encouraged to continue [...] well. Assessment & Plan (11/18/2023 12:17 PM SLEEVE IRONER): Unfortunately patient is now showing evidence of recurrence of luminal disease. Historically her ileal disease had been well controlled since her surgery and initiation of Humira. She is also having more difficulty with a peristomal pyoderma and we believe this reflects failure to respond in a meaningful way to Stelara. We would like to submit for Skyrizi as the accelerated dosing, superior efficacy on recent tqcf-gd-[id number] study and desirable safety profile may be more effective. In the meantime we would like to restart Rinvoq 30 mg as bridging as the patient's disease and skin have responded much better to this compared to steroids. The patient already has follow-up visits with the ostomy TECHNICAL TRANSLATOR, Dermatology, Colorectal surgery, and a vulvar specialist. [...] ostomy. Assessment & Plan (10/12/2023 11:47 AM SLEEVE IRONER): Patient presents with continued complications from her [...] weeks Assessment & Plan (09/28/2023 9:16 PM SLEEVE IRONER): Unfortunately the patient is starting to have [...] despite adequate level. I spoke with her office agent, who saw her today. In addition to [...] 25 Assessment & Plan (10/26/2022 1:14 PM SLEEVE IRONER): Supplements ordered Crohn's proctitis 10/25/2022 02/09/2024 Assessment & Plan (10/26/2022 1:13 PM SLEEVE IRONER): -inflammatory vs. 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 -continue prednisone for now -appreciate CRS input; will attempt to obtain CD-ROM with recent CT images from OSH in [place], [place] -GI consult in AM; NPO p MN in case of any plans for EUA/sigmoidoscopy in AM -IVFs, PRN pain and nausea meds overnight Weight loss, unintentional 10/25/2022 0 02/12/2025 Assessment & Plan (10/25/2022 11:33 PM SLEEVE IRONER): -2/2 poorly controlled CD -RD consult in AM -start nutritional supplements Bright red blood per rectum 12/19/2021 12/19/2021 COVID-19 11/14/2021 02/12/2025 Acute otitis externa of right ear 04/29/2021 02/12/2025 Pruritus 12/10/2020 02/12/2025 Elevated BP without diagnosis of hypertension 01/12/2002/12/2025 Heart palpitations 01/12/2020 Difficult or painful urination 10/09/2019 02/12/2025 Stage 2 chronic kidney disease 10/09/2019 02/13/2025 Influenza B 12/22/2017 02/12/2025 Pyelonephritis 10/28/2015 02/12/2025 OAG (open angle glaucoma) persaud spect, low risk, bilateral 08/12/2015 02/12/2025 Crohn's disease of both smal l and large intestine 10/12/2014 02/09/2024 Ovarian cyst 01/25/2013 02/12/2025 Immunizations Immunization Administration Dates Next Due Influenza, Quadrivalent, Spl it, Preservative Free, Intramuscular 09/10/2022,08/13/2021,08/30/2019,11/22 Influenza, Trivalent, Preser vative Free, Intramuscular 08/04/2024 Influenza, Unspecified 08/30/2019,09/15/2013 PPD TEST 08/08/2004 Pneumococcal Conjugate Pcv20 12/20/2023 Tdap 12/20/2023 ZOSTER Recombinant 06/28/2023,04/10/2023 Social History Tobacco Use Types Packs/Day Years [...] on file Legal Sex Female 8:40 PM SLEEVE IRONER Gender Identity Female 01/27/2019 10:37 AM CDT Sexual Orientation Straight 10/10/2021 6: 35 AM SLEEVE IRONER Last Filed Vital Signs Vital Sign Reading [...] 05/31/2025 8:47 AM CDT Plan of Treatment Not on file Procedures Procedure Name Priority Date/Time Associated Diagnosis [...] given history of: postmenopausal screening, Osteoporosis screening Engineer/Conductor/Model: TUBE A (S/N [id number]) Facility LSC value of 0.022 for the [...] Richardson Guo M.D. MF: MOMO Report ID: [id number] Reading Location: [address] Note Richardson Guo MD - 04/11/2025 EXAM DESCRIPTION: DEXA AXIAL SKELETON BONE DENSITY 1 OR MORE SITES REASON FOR STUDY: 59 y/o year old F with given history of:postmenopausal screening, Osteoporosis screening Engineer/Conductor/Model: TUBE A (S/N [id number]) Facility LSC value of 0.022 for the [...] Richardson Guo M.D. MF: MOMO Report ID: [id number] Reading Location: [place] [address] Desirae Mukherjee [facility] DXA PROCEDURES Final Result * Screening Mammogram [...] breast. There has been no suspicious change. us Desirae Mukherjee DNP [facility] MAMMO PROCEDURE S Final Result * CT Body Outside Reference (03/27/2025 10:32 PM CDT) Impressions [facility] - 03/27/2025 10:32 PM CDT These images are for Reference purposes only and have not been reviewed by [facility] Radiology. There will be no report generated by a [facility] Radiologist. Narrative [facility] - 03/27/2025 10:32 PM CDT EXAMINATION: Images For Reference Purposes Only us Abhijit Quispe MD [facility] CT PROCEDURES Final Resu lt [facility] * COLONOSCOPY (09/04/2022 12:46 PM CDT) Anatomical Region Laterality Modality Other Narrative Procedure Note Martha Chong MD - 09/04/2022 12:46 PM CDT ENDOSCOPY LAB Patient Name: Monica Marie Procedure Date: 09/04/2022 12:46PM Date of : 1965 Admit Type: Outpatient Age: 57 Gender: Female Attending MD: Martha Chong M.D. Room: [facility] ENDOSCOPY ROOM 01 Note Status: Finalized [...] The scope was passed under direct vision.The [id number] was introduced through the anusand advanced to [...] During normal business hours - Please call theNurse Coordinator: [phone] After hours, evening, nights, weekends and holidays- Please call the hospital crane operator cab at and ask for the GI fellow burial needs salesperson. Attending Participation: I personally performed the entire procedure. Electronically signed by Martha Chong M.D. Martha Chong M.D. 09/04/2022 1:51:49 PM Number of Addenda: 0 Note Initiated On: 09/04/2022 12:46 PM Martha Chong MD ENDOSCOPY PROCEDURE S Final Result from Last 3 Months or Most Recently Relevant to Health Maintenance Insurance [employer] [facility] MEDICARE [facility] CLAIMS [facility] MEDICARE [facility] Advance Directives For more information, please contact: [phone] * Full Code (Latest Code Status on [...] 12:45 PM 06/27/2021 8:28 PM Care Teams Cutter Finisher Relationship Specialty Start Date End Date Desirae Mukherjee DNP [address] [facility] [address] [facility] [place] [address] PCP - General Family Medicine 02/12/25 Abhijit Quispe MD [address] [facility] [phone] [place] [address] Surgeon Colon and Rectal Surgery 12/01/21 [place] [address] [place] [address] Nurse Practitioner Wound Care 02/27/23 [place]ruth[place] [address] [place] [address] Consulting Physician Dermatology 02/27/23 Ivy Ugalde MD [address] [address] [place] [address] Referring Physician Gastroenterology 04/22/24 Francisco Wild MD [address] [facility] [place] [address] Dermatology 03/27/25
--- OUTSIDE RECORDS SUMMARY | 2025-05-31 11:29 | XMS_ITS | Encounter Summary ---
Author Organization [facility] Address [address] [place] [address] Care Team Providers Care Tobacco Grower Name Role Phone Joaquim Ferguson MD Primary Care Provider Encounter Details Date Type Department Care Team (Latest Contact Info) Description 12/01/2024 Results Follow-Up [facility] Gastroenterology [facility] [address] [facility] [address] [place] [address] [place] [address] [facility] [address] [place] [address] [address] ABDOMEN PELVIS W CONTRAST Social History Tobacco Use Types Packs/Day Years Used Date Smoking Tobacco: Never Smokeless Tobacco: Never Alcohol Use Standard Drinks/Week Comments Never 0 (1 standard drink = 0.6 oz pur e alcohol) Comments No Sex and Gender Information Value Date Recorded Sex Assigned at Not on file Legal Sex Female 6:59 AM ELECTRONIC TECH Gender Identity Not on file Sexual Orientation Not on file documented as of this encounter Miscellaneous Notes * Result Encounter Note - Ivy Ugalde MD - 12/01/2024 8:10 AM ELECTRONIC TECH Monica, The good news is this scan looks pretty normal wihtout anything concerning. Let's see how this pain plays out. Update me next week with how it is doing. Ivy Ugalde MD TRONIC TECH documented in this encounter Plan of Treatment Upcoming Encounters Date Type Department Care Team (Late st Contact Info) Description 08/08/2025 1:00 PM CDT Office Visit [facility] [address] [facility] [address] [place] [phone] [place] [address] [facility] [address] [place] [address] documented as of this encounter Visit Diagnoses Not on filedocumented in this encounter Additional Health Concerns Assessment Noted Time PHQ-9 Depression Total Score: 3 03/27/20 24 12:00 PM CDT documented as of this encounter Care Teams Tobacco Grower Relationship Specialty Start Date End Date Joaquim Ferguson MD [address] [facility] [address] [place] [address] PCP - General Family Practice 01/11/23 documented as of this encounter
--- OUTSIDE RECORDS SUMMARY | 2025-05-31 11:29 | XMS_ITS | Encounter Summary ---
Author Organization [facility] Address [address] [place] [address] Phone Care Team Providers Care Web Mobile Designer Name Role Phone Joaquim Ferguson MD Primary Care Provider [phone] Abhijit Quispe MD Unavailable [phone] Martha Chong MD Unavailable [phone] Robyn Richardson NP Unavailable [phone] Shruthi Oakley MD Unavailable [phone] Rylan March MD Unavailable [phone] Ivy Ugalde MD Unavailable [phone] [facility] Primary Care Provi phan Francisco Wild MD Unavailable [phone] Encounter Details Date Type Department Care Team (Late st Contact Info) Description 03/31/2022 Orders Only [facility] Scanning, Provider Social History Tobacco Use Types Packs/Day Years Used Date Smoking Tobacco: Never Smokeless Tobacco: Never Alcohol Use Standard Drinks/Week Comments No 0 (1 standard drink = 0.6 oz pur e alcohol) AUDIT-C Answer Date Recorded Q1: How often do you have a drink containing alc ohol? Never 12/16/2021 Average Number of Drinks Not on file 022 Q3: How often do you have si x or more drinks on one occasion? Never 12/16/2021 Comments No Sex and Gender Information Value Date Recorded Sex Assigned at Not on file Legal Sex Female 8:40 PM OCCUPATIONAL THERAPIST PER DIEM Gender Identity Female 01/27/2019 10:37 AM CDT Sexual Orientation Straight 10/10/2021 6: 35 AM OCCUPATIONAL THERAPIST PER DIEM documented as of this encounter Plan of Treatment Not on file documented as of this encounter Procedures Procedure Name Priority Date/Time Associated Diagnosis Comments SCAN - LABS 03/31/2022 documented in this encounter Results * SCAN - LABS (03/31/2022) Provider Scanning Final Result documented in this encounter Visit Diagnoses Not on filedocumented in this encounter Care Teams Web Mobile Designer Relationship Specialty Start Date End Date Joaquim Ferguson MD [address] [address] PCP - General 02/14/18 02/11/25 Desirae Mukherjee DNP [address] [address] PCP - General Family Medicine 02/12/25 Abhijit Quispe MD [address] [facility] [phone] [place] [address] Surgeon Colon and Rectal Surgery 12/01/21 Martha Chong MD [address] [facility] [phone] [place] [address] Gastroenterology 12/07/21 12/15/23 Robyn Richardson [place] [address] [place] [address] Nurse Practitioner Wound Care 02/27/23 [place] [address] [facility] [place] [address] Consulting Physician Dermatology 02/27/23 Rylan March MD [address] [facility] [address] [place] [address] Consulting Physician Gastroenterology 12/16/23 4 Ivy Ugalde MD [address] [facility] [address] [place] [address] Referring Physician Gastroenterology 04/22/24 Francisco Wild MD [address] [facility] [place] [address] Dermatology 03/27/25 documented as of this encounter
--- OUTSIDE RECORDS SUMMARY | 2025-05-31 11:29 | XMS_ITS | Encounter Summary ---
Author Organization [facility] Address [address] [place] [address] Care Team Providers Care Manager Of Hospital Name Role Phone Joaquim Ferguson MD Primary Care Provider Encounter Details Date Type Department Care Team (Late Contact Info) Description 2025 Results Follow-Up [facility] Gastroenterology [facility] [address] [facility] [address] [place] [address] [place] [address] [facility] [address] [address] PATHOLOGY Social History Tobacco Use Types Packs/Day Years Used Date Smoking Tobacco: Never Smokeless Tobacco: Never Alcohol Use Standard Drinks/Week Comments Never 0 (1 standard drink = 0.6 oz pur e alcohol) Comments No Sex and Gender Information Value Date Recorded Sex Assigned at Not on file Legal Sex Female 6:59 AM RN MEDICATION Gender Identity Not on file Sexual Orientation Not on file documented as of this encounter Miscellaneous Notes * Result Encounter Note - Ivy Ugalde MD - 2025 10:00 AM CDT Monica, Nothing surprising regarding the pathology results. Just inflammation in the ielum and some very mild inflammation int he colon. Let's keep with the same plan. Please let me know if you have any questions. Ivy Ugalde MD [facility] Gastroenterology documented in this encounter Plan of Treatment Upcoming Encounters Date Type Department Care Team (Late Contact Info) Description 08/08/2025 1:00 PM CDT Office Visit [facility] Gastroenterology [facility] [address] [facility] [address] [place] [address] [place] [address] [facility] [address] [place] [phone] documented as of this encounter Visit Diagnoses Not on filedocumented in this encounter Additional Health Concerns Assessment Noted Time PHQ-9 Depression Total Score: 3 03/27/20 24 12:00 PM CDT documented as of this encounter Care Teams Manager Of Hospital Relationship Specialty Start Date End Date Joaquim Ferguson MD [address] [facility] [address] [place] [phone] PCP - General Family Practice 01/11/23 documented as of this encounter
--- OUTSIDE RECORDS SUMMARY | 2025-05-31 11:29 | XMS_ITS | Encounter Summary ---
Author Organization [facility] Address 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 [address] [place] [address] documented as of this encounter Visit Diagnoses Not on filedocumented in this encounter Additional Health Concerns Assessment Noted Time PHQ-9 Depression Total Score: 3 03/27/20 24 12:00 PM CDT documented as of this encounter Care Teams Greenskeeper Relationship Specialty Start Date End Date Joaquim Ferguson MD [address] [facility] [address] [place] [phone] PCP - General Family Practice 01/11/23 documented as of this encounter
--- OUTSIDE RECORDS SUMMARY | 2025-05-31 11:29 | XMS_ITS | Clinical Summary ---
Author Organization [facility] Care Team Providers Care Territory Account Executive Name Role Phone Unavailable Primary Care Provider Unavailabl e Social History Tobacco Use Types Packs/Day Years Used Date Smoking Tobacco: Never Assessed Comments Unknown Sex and Gender Information Value Date Recorded Sex Assigned at Not on file Legal Sex Female 12:07 PM CDT Gender Identity Not on file Sexual Orientation Not on file Plan of Treatment Health Maintenance Due Date Last Done Comments Hepatitis C Virus (HCV) Screening 1964 TdaP Immunization 1964 Pap Smear 1985 Cervical Cancer Screening (CCS) 1994 HPV/Cotest 1994 Colonoscopy 2009 Colorectal Cancer Screening 2009 Cologuard 2014 Immunochemical Fecal Occult Blood 2014 Mammogram 2014 Pneumococcal Immunization (5 0+ years) (1 of 1 - PCV) 2014 Zoster Immunization (1 of 2) 2014 Influenza Immunization (#1) 2024 100 04/2021, 11/22/2017 SARS-COV-2 Immunization ( season) 2024 09/12/2021, 02/03/2021, 01/06/2021 Respiratory Syncytial Virus (RSV) Immunization (Adult) (1 - 1-dose 75+ series) 2039 Hepatitis B Immunization Aged Out No longer eligible based on patient's age to complete this topic Meningococcal Immunization (ACWY) Aged Out No longer eligible b ased on patient's age to complete this topic Rotavirus Immunization Aged Out No lo nger eligible based on patient's age to complete this topic
--- OUTSIDE RECORDS SUMMARY | 2025-05-31 11:29 | XMS_ITS | Clinical Summary ---
Author Organization [facility] [address] Address [address] [place] [address] Care Team Providers Care Family Medicine Chair Name Role Phone Joaquim Ferguson MD Primary Care Provider Allergies Active Allergy Reactions Criticality Noted Date Comments Iodine Nausea and Vomiting Low 04/21/2018 Medications tacrolimus (PROTOPIC) 0.03 % OintmentIndic ations:Pyoder ma gangrenosa (CMS/HCC) Apply to affect area with dressing changes three times a week until healed 60 Gram 1 023 Active ketoconazole (NIZORAL) 2 % Cream APPLY TOPICALLY TO THE AFFECTED AREA AT BUTTOCKS AND VULVAR AREA TWICE DAILY 023 Active lidocaine (XYLOCAINE) 2% jelly Apply to base of the ulcer for pain daily 30 mL 3 023 Active ascorbic acid, vitamin C, (VITAMIN C) 500 mg tablet Take 500 mg by mouth daily. Active mesalamine (CANASA) 1,000 mg SuppositoryIn dications:Rec payal pressure,Rect al urgency Insert 1 Suppository (1,000 mg) by rectum daily at bedtime. 30 Suppository 9 024 Active fluconazole (DIFLUCAN) 150 mg tabletIndicat ions:Yeast infection Take 1 Tablet (150 mg) by mouth daily. 2 Tablet 1 024 Active Additional Information Patient taking differently:150 mg OralDAILY PRN, Reported on 02/08/2025 MULTIVITAMIN ORAL Take by mouth. Activ e famotidine (PEPCID ORAL) Take by mouth 1 time daily as needed. Active ESTRADIOL VAGINAL Insert vaginally. Active upadacitinib (Rinvoq) 15 mg Tablet Sustained Release 24HRIndicatio ns:Crohn's disease of both small and large intestine with fistula (CMS/HCC) Take 1 tablet (15 mg) by mouth daily. 90 Tablet 3 024 Active Additional Information Patient not taking.Reported on 02/08/2025 cyanocobalami n, vitamin B-12, (VITAMIN B-12 ORAL) Take by mouth. Activ e ergocalcifero l, vitamin D2, (VITAMIN D ORAL) Take by mouth. Activ e cefdinir (OMNICEF) 300 mg capsule Take 300 mg by mouth every 12 hours. Active predniSONE (DELTASONE) 20 mg tablet Take 1 Tablet (20 mg) by mouth see administration instructions. 3 Tablet 025 Active Additional Information Patient not taking.Reported on 02/08/2025 diphenhydrAMI NE (BENADRYL) 25 mg tablet Take 50 mg by mouth. Active acetaminophen (TYLENOL) 500 mg tablet Take 1,000 mg by mouth every 6 hours as needed. Active polyethylene glycol 3350 (MIRALAX) 17 gram/dose Powder Take 17 Grams by mouth 2 times daily as needed for Constipation. Dissolve in 8 ounces of fluid and drink entire liquid Active hyoscyamine 0.125 mg sublingual tabletIndicat ions:Crohn's disease of both small and large intestine with fistula (CMS/HCC),Abd ominal cramping Place 1 Tablet (0.125 mg) under tongue every 4 hours as needed for Spasm. 120 Tablet 1 025 Active sod picosulf-mag ox-citric ac (Clenpiq) 10 mg-3.5 gram- 12 gram/175 mL Solution Take 175 mL by mouth one time for 1 dose. Follow prescribing physician's instructions ONLY. These were sent by mail or email. 175 mL 025 Active risankizumab- rzaa (Skyrizi) 360 mg/2.4 mL (150 mg/mL) wearable injectorIndic ations:Crohn' s disease of both small and large intestine with fistula (CMS/HCC) Inject 2.4 mL (360 mg) by subcutaneous injection every 6 weeks. 2.4 mL 5 025 Active upadacitinib (Rinvoq) 15 mg Tablet Sustained Release 24HR Take 1 Tablet (15 mg) by mouth daily. 90 Tablet 3 025 Active Skyrizi 360 mg/2.4 mL (150 mg/mL) wearable injectorIndic ations:Crohn' s disease of both small and large intestine with fistula (CMS/HCC) INJECT 360 MG (2.4 ML) UNDER THE SKIN EVERY 8 WEEKS 2.4 mL 5 025 2024 Discontinued upadacitinib (Rinvoq) 15 mg Tablet Sustained Release 24HR Take 1 Tablet (15 mg) by mouth daily. 90 Tablet 3 025 2024 Discontinued(R eorder) risankizumab- rzaa (Skyrizi) 360 mg/2.4 mL (150 mg/mL) wearable injectorIndic ations:Crohn' s disease of both small and large intestine with fistula (CMS/HCC) Inject 2.4 mL (360 mg) by subcutaneous injection every 6 weeks. 2.4 mL 5 025 2024 Discontinued(R eorder) Active Problems Problem Noted Date Diagnosed Date Crohn's disease 04/09/2024 Status post colostomy 04/09/2024 Abscess of abdominal wall 04/09/2024 Encounters Date Type Department Care Team Description 05/29/2025 External Device Data STL ABSTRACTION Provider, Abstract 2025 Results Follow-Up [facility] [place] [address] [place] [address] Ivy Ugalde MD PATHOLOGY 05/15/2025 9:32 AM CDT Anesthesia Event [address] [place] [address] Nalini Blanco MD 05/15/2025 9:30 AM CDT - 05/15/2025 10:00 AM CDT Surgery [address] [place] [address] Ivy Ugalde MD COLONOSCOPY 05/15/2025 8:27 AM CDT - 05/15/2025 10:43 AM CDT Hospital Encounter [address] [place] [address] vIy Ugalde MD Crohn's disease of both small and large intestine with fistula (CMS/HCC) Discharge Disposition: Home or Self Care 05/15/2025 [facility] [place] [address] [facility] [address] [place] [address] Doretha Mosquera RN Crohn's disease of both small and large intestine with fistula (CMS/HCC) 05/15/2025 Orders Only [facility] [place] [address] [facility] [address] [place] [address] Ivy Ugalde MD Crohn's disease of both small and large intestine with fistula (CMS/HCC) 05/01/2025 External Device Data STL ABSTRACTION Provider, Abstract 04/27/2025 Refill [facility] [place] [address] [facility] [address] [place] [address] Ivy gUalde MD Crohn's disease of both small and large intestine with fistula (CMS/HCC) 04/25/2025 External Device Data STL ABSTRACTION Provider, Abstract 04/12/2025 Results Follow-Up [facility] [place] [address] [facility] [address] [place] [address] Fadia Herrmann, KATELYN CBC WITH DIFFERENTIAL, C-REACTIVE PROTEIN 04/11/2025 10:00 AM CDT Office Visit [facility] [place] [address] [address] [facility] [address] Fadia Herrmann, KATELYN Crohn's disease of both small and large intestine with fistula ([facility]/HCC) (Primary Dx); Colostomy status ([facility]/HCC); Rectal urgency; Abdominal cramping 04/10/2025 External Device Data STL ABSTRACTION Provider, Abstract 03/29/2025 External Device Data STL ABSTRACTION Provider, Abstract 03/29/2025 External Device Data STL ABSTRACTION Provider, Abstract 03/28/2025 External Device Data STL ABSTRACTION Provider, Abstract 03/28/2025 External Device Data STL ABSTRACTION Provider, Abstract 03/27/2025 External Device Data STL ABSTRACTION Provider, Abstract 03/13/2025 External Device Data STL ABSTRACTION Provider, Abstract from Last 3 Months Immunizations Immunization Administration Dates Next Due (ADACEL/BOOSTRIX)(10 YR UP) TDAP VACCINE, 0.5ML, IM 12/20/2023 (PREVNAR 20)(6 WKS UP) PNEUM OCOCCAL CONJUGATE VACCINE 20-VALENT (PCV20), POLYSACCHARIDE [id number] CONJUGATE, ADJUVANT 0.5 ML (PF) IM 12/20/2023 (SHINGRIX)(50 YRS UP) ZOSTER VACCINE RECOMBINANT, 0.5 ML, IM 06/28/2023,04/10/2023 INFLUENZA VACCINE QUADRIVALE NT 6 MOS UP PF IM 09/10/2022,08/13/2021,08/30/2019,11/22 Influenza, Unspecified Formulation 08/30/2019,,09/15/2013 Family History Medical History Relation Name Comments Colon Cancer Neg Hx Social History Tobacco Use Types Packs/Day Years Used Date Smoking Tobacco: Never Smokeless Tobacco: Never Tobacco Cessation:Counseling Given: Not Answered Alcohol Use Standard Drinks/Week Comments Never 0 (1 standard drink = 0.6 oz pur e alcohol) Comments No Sex and Gender Information Value Date Recorded Sex Assigned at Not on file Legal Sex Female 6:59 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 Gender Identity Not on file Sexual Orientation Not on file Last Filed Vital Signs Vital Sign Reading Time Taken Comments Blood Pressure 121/84 05/15/2025 10:10 AM CDT Pulse 67 05/15/2025 10:10 AM CDT Temperature 36.2 C (97.1 F) 05/15/2025 9:54 AM CDT Respiratory Rate 11 05/15/2025 10:1 0 AM CDT Oxygen Saturation 100% 05/15/2025 10: 10 AM CDT Inhaled Oxygen Concentration - - Weight 73.4 kg (161 lb 12.8 oz) 05/15/2025 8:59 AM CDT Height 170.2 cm (5' 7) 05/15/2025 8:59 AM CDT Body Mass Index 25.34 05/15/2025 8:59 AM CDT Plan of Treatment Upcoming Encounters Date Type Department Care Team (Late st Contact Info) Description 08/08/2025 1:00 PM CDT Office [facility] [address] [place] [address] [place] [address] [facility] [address] [phone] Health Maintenance Due Date Last Done Comments Pre-Diabetes and Diabetes Screening 1965 FIT-DNA Q 3 years 2009 FIT/FOBT Q 1 year 2009 RSV VACCINE (60+ or ) (1 - Risk 60-74 years 1-dose series) 2024 COVID-19 Vaccine (3 - Pfizer risk series) 09/28/2024 08/31/2024, 07/09/2022 INFLUENZA VACCINE (#1) 2025 , 09/10/2022, 08/13/2021, Additional history exists BREAST CANCER SCREENING 04/10/2026 04/10/20 25, 04/10/2025, 08/08/2024, Additional history exists Flex Sig/CT Colonography Q 5 years 11/21/2029 11/21/2024, 11/21/2024, 09/07/2024, Additional history exists DTAP/TDAP/TD VACCINES (2 - T d or Tdap) 12/20/2033 12/20/2023 COLORECTAL SCREENING 05/15/2035 05/15/2025, 05/15/2025, 04/04/2024, Additional history exists Colorectal Cancer Screening 05/15/2035 ZOSTER VACCINE Completed 06/28/2023, 04/10/2023 Procedures Procedure Name Priority Date/Time Associated Diagnosis Comments COLONOSCOPY REPORT 05/15/2025 9: 56 AM CDT PATHOLOGY Pathology 05/15/2025 9:46 AM CDT Crohn's disease of both small and large intestine with fistula (CMS/HCC) MT COLONOSCOPY FLX DX W/COLLJ SPEC WHEN PFRMD 05/15/2025 9:30 AM CDT Crohn's disease of both small and large intestine with fistula (CMS/HCC) QUANTIFERON TB GOLD Routine 04/11/2025 1 :24 PM CDT Crohn's disease of both small and large intestine with fistula (CMS/HCC) C-REACTIVE PROTEIN Routine 04/11/2025 1: 24 PM CDT Crohn's disease of both small and large intestine with fistula (CMS/HCC) COMPREHENSIVE METABOLIC PANEL Routine 04/11/2025 1:24 PM CDT Crohn's disease of both small and large intestine with fistula (CMS/HCC) CBC WITH DIFFERENTIAL Routine 04/11/2025 1:24 PM CDT Crohn's disease of both small and large intestine with fistula (CMS/HCC) FLEXIBLE SIGMOIDOSCOPY REPORT 11/21/2024 10:47 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 from Last 3 Months or Most Recently Relevant to Health Maintenance Results * COLONOSCOPY REPORT (05/15/2025 9:56 AM CDT) Narrative Procedure Note Ivy Ugalde MD - 05/15/2025 9:56 AM CDT [facility] Patient Name: Monica Marie Procedure Date: 05/15/2025 Date of : 1965 Age: 59 Attending MD: Ivy Ugalde MD, Procedure: Colonoscopy Indications: Crohn's disease of the small bowel and colon Providers: Ivy Ugalde MD Referring MD: Joaquim Ferguson MD Medicines: Monitored Anesthesia Care Procedure: Informed consent was obtained for the procedure, including moderate sedation after risks were discussed. Based on the pre-procedure assessment, including review of the patient's medical history, medications, allergies, and review of systems, the patient was deemed to be an appropriate candidate for sedation. A timeout was performed. Continuous ECG monitoring, pulse oximetry, blood pressure monitoring, and direct observation were performed. The Colonoscope was introduced through the stoma and advanced to the terminal ileum. The colonoscopy was performed without difficulty. The patient tolerated the procedure well. The quality of the bowel preparation was good. The terminal ileum, ileocecal valve, appendiceal orifice, and rectum were photographed. Estimated Blood Loss: Estimated blood loss was minimal. Findings: The perianal exam findings include anal canal stenosis. Not dilated. Diffuse inflammation characterized by deep ulcerations was found in the terminal ileum. The inflammation was graded as Rutgeerts Score i4 (diffuse inflammation with large deep lesions). Biopsies were taken with a cold forceps for histology. There was evidence of a prior ileo-colonic anastomosis in the ascending colon. This was patent and was characterized by mildly ulcerated mucosa. The anastomosis was traversed. The colon (entire examined portion) appeared normal. Biopsies were taken with a cold forceps for histology. The exam was otherwise without abnormality on direct and retroflexion views. Complications: No immediate complications. Impression: - Anal canal stenosis found on perianal exam. - Healthy appearing stoma os. - Crohn's disease with ileitis. Inflammation was found. This was graded as Rutgeerts Score i4 (diffuse inflammation with large deep lesions). Biopsied. - Patent but ulcerated ileo-colonic anastomosis. - The entire examined colon is normal. Biopsied. - The examination was otherwise normal on direct and retroflexion views. Recommendation: - Patient has a contact number available for emergencies. The signs and symptoms of potential delayed complications were discussed with the patient. Return to normal activities tomorrow. Written discharge instructions were provided to the patient. - Resume previous diet. - Continue present medications. - Await pathology results. - Follow up in IBD clinic to discuss medical optimization. Ivy Ugalde MD 05/15/2025 9:55:51 AM This report has been signed electronically. Number of Addenda: 0 Procedure Date: 05/15/2025 9:17:52 AM [id number] [address] Ivy Ugalde MD GI PROCEDURE ORDERABLES F inal Result * PATHOLOGY (05/15/2025 9:46 AM CDT) CASE REPORT Surgical Pathology Report Case: [id number] Authorizing Provider: Ivy Ugalde MD Collected: 05/15/2025 09:46 AM Ordering Location: [facility] Endoscopy Received: 05/15/2025 02:02 PM [facility] Pathologist: Deyvi Maguire MD Specimens: A) - Small Intestine, ileum bx B) - Colon, right, bx C) - Colon, left, bx 9:54 AM T [facility] FINAL DIAGNOSIS A. Small bowel, ileum, biopsy: - Small intestinal mucosa with focal mild active ileitis. - No granuloma or dysplasia. B. Colon, right colon, biopsy: - Colonic mucosa with mild chronic inflammation and reactive changes, nonspecific. - Scattered epithelioid granulomas present. - No dysplasia. C. Colon, left colon, biopsy: - Colonic mucosa with mild chronic inflammation and reactive changes, nonspecific. - No granuloma or dysplasia. 9:54 AM T [facility] at 0954 CDT GROSS DESCRIPTION The specimens are received in three containers each labeled Monica V Cynthia. Received in the first container additionally labeled small intestine ileum biopsy are 4 pieces of pink-astudillo tissue ranging from 0.2 to 0.8 cm in greatest dimension. All are submitted in cassette A1. Received in the second container additionally labeled right colon biopsy are 2 pieces of pink-astudillo tissue each measuring 0.6 cm in greatest dimension. All are submitted in cassette B1. Received in the third container additionally labeled left colon biopsy is 1 piece of pink-astudillo tissue measuring 0.5 x 0.2 x 0.1 cm. It is entirely submitted in cassette C1. [facility] 9:54 AM [facility] MICROSCOPIC DESCRIPTION The slides are labeled [id number] and Monica Marie. Sections of the ileum biopsy (A) show fragments of small intestinal mucosa with focal mild active ileitis. Features of chronic mucosal injury are not identified. No granuloma or dysplasia is identified. Sections of the right colon biopsy (B) show fragments of colonic mucosa with mild nonspecific chronic inflammation and reactive changes. Features of chronic mucosal injury, such as crypt dropout or significant crypt distortion, are not identified. Scattered epithelioid granulomas are identified within the lamina propria. No dysplasia is identified. Sections of the left colon biopsy (C) show fragments of colonic mucosa with mild nonspecific chronic inflammation and reactive changes. Features of chronic mucosal injury, such as crypt dropout or significant crypt distortion, are not identified. No granuloma or dysplasia is identified. 9:54 AM T [facility] OPERATIVE PROCEDURE 1: COLONOSCOPY 9:54 AM T [facility] CLINICAL INFORMATION A Hx of Crohn's Hx of Crohn's Crohn's disease of both small and large intestine with fistula ([facility]/HCC) [K50.813] K50.813-Crohn's disease of both small and large intestine with fistula ([facility]/HCC) 9:54 AM T [facility] COMMENT Special stain, immunohistochemical, and/or in situ hybridization results are interpreted with controls that demonstrate appropriate staining reactions. Note on use of immunohistochemistry reagents and in situ hybridization probes: These tests were developed and their performance characteristics determined by [facility], Department of Laboratory Medicine. It has not been cleared or approved by the U.S. Food and Drug Administration. The FDA has determined that such clearance or approval is not necessary. The test is used for clinical purposes. It should not be regarded as investigational or for research. This laboratory is certified to perform high complexity testing. Frozen section/operating room consultation, gross examination and dissection, and case sign out may have been performed in part or completely in the following laboratories: [facility], [place] #[id number] [address] [place] [address] [facility], [place] #[id number] [address] [place] [address] [facility], [place] #[id number] [address] [place] [address] This report was created with the [employer] voice-activated dictation system. Inherent to this system is the possibility of syntax, grammar, punctuation and other errors that could impact the interpretation of the report. If there are interpretative questions about aspects of this report, please contact the performing pathologist. 9:54 AM [facility] Tissue (Small Intestine) Collection / Unknown 05/15/2025 9:46 AM CDT 05/15/2025 2:02 PM CDT Comment:Hx of Crohn's Tissue specimen (specimen) (Colon, right) Collection / Unknown 05/15/2025 9:46 AM CDT 05/15/2025 2:02 PM CDT Comment:Hx of Crohn's Tissue specimen (specimen) (Colon, left) 05/15/2025 9:46 AM CDT 05/15/2025 2:02 PM CDT Comment:Hx of Crohn's Ivy Ugalde MD PATHOLOGY/CYTOLOGY ORDERGentry VAZQUEZ Final Result [facility]# [id number] [address] [facility] [address] * QUANTIFERON TB GOLD (04/11/2025 1:24 PM CDT) QUANTIFERON TB GOLD PLUS NEGATIVE NEGATIVE [facility] Comment: Negative test result. M. tuberculosis complex infection unlikely. NIL 0.03 IU/mL [facility] MITOGEN-NIL 8.47 IU/mL [facility] TB1 AG - NIL <0.00 IU/mL [facility] TB2 AG - NIL <0.00 IU/mL [facility] Comment: The Nil tube value reflects the background interferon gamma immune response of the patient's blood sample. This value has been subtracted from the patient's displayed TB and Mitogen results. Lower than expected results with the Mitogen tube prevent false-negative Quantiferon readings by detecting a patient with a potential immune suppressive condition and/or suboptimal pre-analytical specimen handling. The TB1 Antigen tube is coated with the M. tuberculosis-specific antigens designed to elicit responses from TB antigen primed CD4+ helper T-lymphocytes. The TB2 Antigen tube is coated with the M. tuberculosis-specific antigens designed to elicit responses from TB antigen primed CD4+ helper and CD8+ cytotoxic T-lymphocytes. For additional information, please refer to https://education.Gyros.Ookbee/faq/BUI443 (This link is being provided for informational/ educational purposes only.) FASTING:NO FASTING: NO Test Performed at: [facility] [address] [place] [address] Denise Thomas MD Blood 04/11/2025 1:24 PM CDT 04/11/2025 1:24 PM CDT Fadia Herrmann ANP CHEMISTRY ORDERABLES Fi nal Result [facility] [phone] [facility] [address] [place] [address] * (ABNORMAL) CBC WITH DIFFERENTIAL (04/11/2025 1:24 PM CDT) WBC 8.1 3.8 - 10.8 Thousand/ uL [facility] RBC 4.46 3.80 - 5.10 Million/u L [facility] HEMOGLOBIN 13.5 11.7 - 15.5 g/dL [facility] HEMATOCRIT 42.5 35.0 - 45.0 % [facility] MCV 95.3 80.0 - 100.0 fL [facility] MCH 30.3 27.0 - 33.0 pg [facility] MCHC 31.8(L) 32.0 - 36.0 g/dL [facility] Comment: For adults, a slight decrease in the calculated MCHC value (in the range of 30 to 32 g/dL) is most likely not clinically significant; however, it should be interpreted with caution in correlation with other red cell parameters and the patient's clinical condition. RDW 12.8 11.0 - 15.0 % [facility] PLATELETS 250 140 - 400 Thousand/ uL [facility] MPV 11.8 7.5 - 12.5 fL [facility] NEUTROPHIL ABSOLUTE 4,277 1,500 - 7,800 cells/uL [facility] LYMPHOCYTE ABSOLUTE 2,892 850 - 3,900 cells/uL [facility] MONOCYTE ABSOLUTE 713 200 - 950 cells/uL [facility] EOSINOPHIL ABSOLUTE 170 15 - 500 cells/uL [facility] BASOPHILS ABSOLUTE 49 0 - 200 cells/uL [facility] NEUTROPHIL 52.8 % [facility] LYMPHOCYTES 35.7 % [facility] MONOCYTE 8.8 % [facility] EOSINOPHILS 2.1 % [facility] BASOPHILS 0.6 % [facility] Comment: FASTING:NO FASTING: NO Test Performed at: [place] [address] [place] [address] [facility] Blood 04/11/2025 1:24 PM CDT 04/11/2025 1:24 PM CDT Fadia Herrmann ANP HEMATOLOGY ORDERABLES F inal Result Performing Organization Address City/[facility] Code Phone Number [facility] [phone] [place] [address] [place] [address] * C-REACTIVE PROTEIN (04/11/2025 1:24 PM CDT) Pathologist [facility] CRP 7.1 <8.0 mg/L [facility] Comment: FASTING:NO FASTING: NO Test Performed at: [facility] [place] [address] [place] [address] [facility] Blood 04/11/2025 1:24 PM CDT 04/11/2025 1:24 PM CDT Fadia Herrmann ANP CHEMISTRY ORDERABLES Fi nal Result Performing Organization Address City/[facility] Code Phone Number [facility] [phone] [place] [address] [place] [address] * COMPREHENSIVE METABOLIC PANEL (04/11/2025 1:24 PM CDT) GLUCOSE 86 65 - 99 mg/dL [facility] [facility] Comment: Fasting reference interval BUN 13 7 - 25 mg/dL [facility] CREATININE 0.90 0.50 - 1.05 mg/dL [facility] GFR 73 > OR = 60 mL/min/1. 73m2 [facility] BUN/CREAT RATIO SEE NOTE: 6 - 22 (calc) [facility] Comment: Not Reported: BUN and Creatinine are within reference range. SODIUM 140 135 - 146 mmol/L [facility] POTASSIUM 3.9 3.5 - 5.3 mmol/L [facility] CHLORIDE 103 98 - 110 mmol/L [facility] CO2 29 20 - 32 mmol/L [facility] CALCIUM 9.8 8.6 - 10.4 mg/dL [facility] TOTAL PROTEIN 7.9 6.1 - 8.1 g/dL [facility] ALBUMIN 4.3 3.6 - 5.1 g/dL [facility] GLOBULIN 3.6 1.9 - 3.7 g/dL (calc) [facility] ALBUMIN/GLOBULIN RATIO 1.2 1.0 - 2.5 (calc) [facility] [facility] BILIRUBIN TOTAL 0.3 0.2 - 1.2 mg/dL [facility] ALKALINE PHOSPHATASE 85 37 - 153 U/L [facility] AST 13 10 - 35 U/L [facility] ALT 13 6 - 29 U/L [facility] Comment: FASTING:NO FASTING: NO Test Performed at: [place] [address] [place] [address] Denise Jack Blood 04/11/2025 1:24 PM CDT 04/11/2025 1:24 PM CDT Fadia Herrmann [facility] CHEMISTRY ORDERABLES nal Result [facility] [phone] [place] [address] [place] [address] * FLEXIBLE SIGMOIDOSCOPY REPORT (11/21/2024 10:47 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) Narrative Procedure Note Ivy Ugalde MD - 11/21/2024 10:47 AM CST [facility] End[facility] Patient Name: Monica Marie Procedure Date: 11/21/2024 Date of : 1965 Age: 59 Attending MD: Ivy Ugalde MD, Procedure: Flexible Sigmoidoscopy Indications: History of subtotal colectomy Providers: Ivy Ugalde MD Medicines: Monitored Anesthesia Care Procedure: Informed consent was obtained for the procedure, including moderate sedation after risks were discussed. Based on the pre-procedure assessment, including review of the patient's medical history, medications, allergies, and review of systems, the patient was deemed to be an appropriate candidate for sedation. A timeout was performed. Continuous ECG monitoring, pulse oximetry, blood pressure monitoring, and direct observation were performed. The Endoscope was introduced through the anus and advanced to the areli-terminal ileum. Informed consent was obtained for the procedure, including moderate sedation after risks were discussed. Based on the pre-procedure assessment, including review of the patient's medical history, medications, allergies, and review of systems, the patient was deemed to be an appropriate candidate for sedation. A timeout was performed. Continuous ECG monitoring, pulse oximetry, blood pressure monitoring, and direct observation were performed.The procedure was performed without difficulty. The patient tolerated the procedure well. The quality of the bowel preparation was good. Estimated Blood Loss: Estimated blood loss was minimal. Estimated blood loss was minimal. Estimated blood loss: none. Findings: Patient is status-post colon resection a sigmoid stump. On initial YUVAL there was a rectal stricture ~4cm from the anus with a lumen about 12mm in diameter. This was dilatade digitally to allow passage of the scope. The stricture was healthy appearing and unulcerated. Normal mucosa was found in the recto-sigmoid colon. This was biopsied with a cold forceps for histology. No evidence of active crohn's was seen. A benign-appearing, intrinsic moderate stenosis measuring 1 cm (in length) x 1.2 cm (inner diameter) was found in the rectum and was traversed. A TTS dilator was passed through the scope. Dilation with an 18-19-20 mm balloon dilator was performed to 20 mm. Complications: No immediate complications. Impression: - Normal mucosa in the recto-sigmoid colon without evidence of active crohn's diseae. Biopsied. - Rectal stricture s/p digital then endoscopic TTS dilation to max of 20mm. Recommendation: - Discharge patient to home (ambulatory). - Monitor for improvement. - Follow up in IBD clinic. Ivy Ugalde MD 11/21/2024 10:47:36 AM This report has been signed electronically. Number of Addenda: 0 Procedure Date: 11/21/2024 10:17:22 AM [address] [address] Ivy Ugalde MD GI PROCEDURE ORDERABLES F inal Result from Last 3 Months or Most Recently Relevant to Health Maintenance Insurance MEDICARE PART A AND B [employer] Advance Directives For more information, please contact: [phone] * Full Code (Latest Code Status on File) Date Activated Date Inactivated Comments 05/15/2025 9:00 AM 05/15/2025 12:49 PM * Full Code Date Activated Date Inactivated Comments 09/07/2024 10:31 AM 09/07/2024 2:40 PM * Full Code Date Activated Date Inactivated Comments 06/15/2024 9:10 AM 06/15/2024 2:26 PM * Full Code Date Activated Date Inactivated Comments 04/09/2024 7:47 AM 04/10/2024 8:05 PM * Full Code Date Activated Date Inactivated Comments 04/04/2024 10:24 AM 04/04/2024 2:35 PM Care Teams Family Medicine Chair Relationship Specialty Start Date End Date Joaquim Ferguson MD [address] [id number] PCP - General Family Practice 01/11/23
--- OUTSIDE RECORDS SUMMARY | 2025-05-31 11:29 | XMS_ITS | Encounter Summary ---
Author Organization [facility] Address [address] [place] [address] Care Team Providers Care Director Of Marketing Operations Name Role Phone Joaquim Ferguson MD Primary Care Provider Encounter Details Date Type Department Care Team ( Contact Info) Description 04/12/2025 Results Follow-Up [facility] Gastroenterology [place] [address] [facility] [address] [place] [address] Fadia Herrmann ANP [address] [facility] [address] [place] [address] CBC WITH DIFFERENTIAL, C-REACTIVE PROTEIN Social History Tobacco Use Types Packs/Day Years Used Date Smoking Tobacco: Never Smokeless Tobacco: Never Alcohol Use Standard Drinks/Week Comments Never 0 (1 standard drink = 0.6 oz pur e alcohol) Comments No Sex and Gender Information Value Date Recorded Sex Assigned at Not on file Legal Sex Female 6:59 AM AERIAL APPLICATOR PILOT Gender Identity Not on file Sexual Orientation Not on file documented as of this encounter Miscellaneous Notes * Result Encounter Note - Fadia Herrmann ANP - 04/12/2025 8:19 AM CDT Monica Marie Your lab results look good overall. I'm ok with you taking the Skyrizi OBI this week, after a few days of your antibiotic is on board. Thanks! KATELYN Parsons documented in this encounter Plan of Treatment Upcoming Encounters Date Type Department Care Team (Late Contact Info) Description 08/08/2025 1:00 PM CDT Office Visit [facility] Gastroenterology [facility] [address] [facility] [address] [place] [address] [place] [address] [facility] [address] [place] [address] documented as of this encounter Visit Diagnoses Not on filedocumented in this encounter Additional Health Concerns Assessment Noted Time PHQ-9 Depression Total Score: 3 03/27/20 24 12:00 PM CDT documented as of this encounter Care Teams Director Of Marketing Operations Relationship Specialty Start Date End Date Joaquim Ferguson MD [address] [facility] [address] [place] [address] PCP - General Family Practice 01/11/23 documented as of this encounter
--- OUTSIDE RECORDS SUMMARY | 2025-05-31 11:29 | XMS_ITS | Clinical Summary ---
Author Organization [facility] Address [address] [place] [address] Care Team Providers Care Border Patrol Agent Name Role Phone Joaquim Ferguson MD Primary Care Provider Angi Chew MD Unavailable [phone] Allergies No known active allergies Medications adalimumab 40 MG/0.4ML prefilled syringe kit Inject 0.4 mLs (40 mg total) into the skin every 14 (fourteen) days. Active fluconazole 200 MG tablet Take 1 tablet (200 mg total) by mouth daily. 04/15/20 21 Active Lidocaine-Lincoln sandy, Perianal, 3-0.5 % Cream 01/03/20 21 Active lactulose 10 GM/15ML solutionIndicat ions:Constipati on Take 15 mLs by mouth. Indications: Constipation 12/09/19 21 Active famotidine 20 MG tabletIndicatio ns:Gastroesopha geal Reflux Disease Take 1 tablet (20 mg total) by mouth 2 (two) times daily. 28 tablet 04/17/20 21 Active cetirizine 10 MG tabletIndicatio ns:Seasonal Allergic Rhinitis Take 1 tablet (10 mg total) by mouth daily. 30 tablet 04/17/20 21 Active clobetasol 0.05 % creamIndication s:Dermatitis Apply topically 2 (two) times daily. 60 g 04/29/20 21 Active ondansetron 4 MG tabletIndicatio ns:Nausea Take 1 tablet (4 mg total) by mouth. Indications: Nausea 07/23/20 21 Active DULoxetine 30 MG capsuleIndicati ons:Hot flashes,Primary insomnia Take 1 capsule (30 mg total) by mouth in the morning. 30 capsule 3 03/31/20 22 Active mupirocin (BACTROBAN) 2 % ointment Apply topically 3 (three) times daily. Active ketoconazole (NIZORAL) 2 % creamIndication s:Application Site Itching Apply topically daily. Indications: Application Site Itching Active vitamin B-12 (CYANOCOBALAMIN ) (CYANOCOBALAMIN ) 1000 mcg tabletIndicatio ns:Vitamin B12 Deficiency Take 1 tablet (1,000 mcg total) by mouth daily. Indications: Inadequate Vitamin B12 08/27/20 22 Active hydrocortisone (ANUSOL-HC) 2.5 % rectal cream Place rectally 2 (two) times daily. 28 g 10/22/20 22 Active fluconazole (DIFLUCAN) 150 MG tabletIndicatio ns:Vaginal discharge,Vagin al candidosis Take one tab now and repeat in a week. 2 tablet 09/24/20 23 Active fluconazole (DIFLUCAN) 150 MG tabletIndicatio ns:Vaginal yeast infection Take 1 tab po now and repeat in 1 week 2 tablet 10/01/20 23 Active methylPREDNISol one, LORRAINE, (MEDROL DOSEPAK) 4 MG tablet 6 TABLETS ON DAY ONE, 5 TABLETS DAY TWO, 4 TABLETS DAY THREE, 3 TABLETS DAY FOUR, 2 TABLETS DAY FIVE, AND 1 TABLET DAY SIX 1 each 01/12/20 24 Active tiZANidine (ZANAFLEX) 4 MG tabletIndicatio ns:Pain Take 1 tablet (4 mg total) by mouth every 6 (six) hours as needed. 12 tablet 01/12/20 24 Active lidocaine 4 % patchIndication s:Pain Place 1 patch onto the skin daily. Remove & Discard patch within 12 hours or as directed by 30 patch 01/12/20 24 Active fluconazole (DIFLUCAN) 100 MG tabletIndicatio ns:Thrush of mouth and esophagus (CMS/HCC HHS/HCC) take 1 tablet by mouth daily for 7 days 7 tablet 02/16/20 24 Active risankizumab (SKYRIZI) 360 MG/2.4ML body injectorIndicat ions:Crohn's Disease Inject 2.4 mLs (360 mg total) into the skin see administration instructions. Indications: Crohn's Disease Every 4 weeks 03/20/20 24 Active Upadacitinib ER (RINVOQ) 30 MG TABLET SR 24 HRIndications:C rohn's Disease Take 1 tablet by mouth daily. Indications: Crohn's Disease 03/20/20 24 Active desipramine (NORPRAMIN) 10 MG Tab tabletIndicatio ns:Pain Take 1 tablet (10 mg total) by mouth nightly at bedtime. Indications: Pain 03/20/20 24 Active NON FORMULARYIndica tions:Vitamin C Imbalance (Inactive) Take 1,000 mg by mouth 3 (three) times daily. Atomy Color Food Vitamin C (Vitamin C 500 mg) Indications: Excess or Deficiency of Vitamin C 03/20/20 24 Active sulfamethoxazol e-trimethoprim (BACTRIM DS) 800-160 MG tabletIndicatio ns:Wound Take 1 tablet by mouth 2 (two) times daily. Indications: Wound 03/15/20 24 Active Estradiol (YUVAFEM) 10 MCG vaginal tabletIndicatio ns:Hormone Deficiency Place 1 tablet vaginally see administration instructions. Insert one tablet vaginally twice a week on Wednesday and for maintenance dose Indications: Hormone Deficiency 03/20/20 24 Active methenamine (HIPREX) 1 g tabletIndicatio ns:Prophylaxis Take 1 tablet (1 g total) by mouth 2 (two) times daily with meals. Indications: Preventative Treatment 03/20/20 24 Active traMADol (ULTRAM) 50 MG tabletIndicatio ns:Acute Pain < 3 Day Supply,Acute Pain < 7 Day Supply Take 1 tablet (50 mg total) by mouth every 6 (six) hours as needed for Pain. Indications: Acute Pain < 3 Day Supply, Acute Pain < 7 Day Supply 28 tablet 03/24/20 24 Active amoxicillin-cla vulanate (AUGMENTIN) 875-125 MG tabletIndicatio ns:Wound infection Take 1 tablet (875 mg total) by mouth 2 (two) times daily. Indications: Wound infection 04/10/20 24 Active saccharomyces boulardii (FLORASTOR) 250 MG capsuleIndicati ons:Probiotic Take 1 capsule (250 mg total) by mouth 2 (two) times daily. Indications: Probiotic 04/14/20 24 Active fluticasone propionate (FLONASE) 50 MCG/ACT nasal sprayIndication s:Seasonal allergic rhinitis due to pollen 1 spray by Each Nostril route daily. 16 g 11 04/19/20 24 Active nystatin (MYCOSTATIN) 258239 UNIT/ML suspensionIndic ations:Oral candidiasis Take 5 mLs (500,000 Units total) by mouth 4 (four) times daily. 240 mL 1 08/11/20 24 Active cefdinir (OMNICEF) 300 MG Cap capsule Take 1 capsule (300 mg total) by mouth 2 (two) times daily. 20 capsule 09/04/20 24 Active triamcinolone (KENALOG) 0.1 % ointment Apply topically 2 (two) times a week. Apply to wound bed 15 g 1 09/28/20 24 Active oxybutynin XL (DITROPAN-XL) 10 MG 24 hr tabletIndicatio ns:Urinary urgency Take 1 tablet (10 mg total) by mouth daily. 30 tablet 3 12/01/19 25 Active Active Problems Problem Noted Date Diagnosed Date Chronic left shoulder pain 08/04/2024 Seasonal allergic rhinitis due to pollen 024 Abscess of abdominal wall 04/09/2024 Status post colostomy ([facility] 04/09/20 24 Chronic fatigue and immune dysfunction syndrome ([facility]) 12/26/2023 Overview (01/11/2024): Chronic fatigue in an immunocompromised patient. Currently off biologics and exploring immunomodulatory medications. No chronic fevers, chills, normal appetite. But does report night sweats. Also mentions URI symptoms. PLAN - concern for infection is low, but will evaluate for indolent infectious processes that present with fatigue and night sweats. Pyoderma gangrenosum ([facility]) 3 Overview (01/11/2024): Continue wound care and gentle cleansing as recommended by Derm and ACCS- wound care Last Assessment & Plan: The patient is strongly encouraged to continue her follow-up with Robyn and dermatology Thrush of mouth and esophagus ([facility]) 11/12/2022 Severe malnutrition ([facility]) 10/26/2022 Overview (11/12/2022): Last Assessment & Plan: Supplements ordered Crohn's disease with complication ([facility] HHS/ CC) 12/01/2021 Overview (11/12/2022): Added automatically from request for surgery [id number] COVID-19 virus infection 11/14/2021 Acute otitis externa of right ear, unspecified t ype 04/29/2021 Dermatitis 04/29/2021 Pruritus 12/10/2020 Elevated BP without diagnosis of hypertension Heart palpitations 01/12/2020 Iron deficiency anemia jamieon shmuel to inadequate dietary iron intake 01/12/2020 Vitamin D deficiency 01/12/2020 Arm pain, musculoskeletal, right 11/09/2019 Difficult or painful urination 10/09/2019 Stage 2 chronic kidney disease 10/09/2019 Anal fissure 08/08/2018 High risk medications (not anticoagulants) long- term use 08/08/2018 Crohn's disease of both smal l and large intestine with intestinal obstruction ([facility]) 06/03/2018 Influenza B 12/22/2017 Allergic reaction to contrast material 6 Pyelonephritis 10/28/2015 OAG (open angle glaucoma) suspect, low risk, vernon ateral 08/12/2015 Low back pain 05/29/2015 Crohn's disease of both smal l and large intestine ([facility]) 10/12/2014 Menopausal symptoms 08/23/2014 Depression 08/22/2014 Insomnia 08/22/2014 Abnormal finding on breast imaging 02/06/2014 Pelvic pain 01/29/2013 Ovarian cyst 01/25/2013 Hemorrhoids 01/16/2013 Abdominal pain 12/19/2012 Chest pain Resolved Problems Problem Noted Date Diagnosed Date Resolved Date Routine general medical exam ination at a health care facility 10/09/2019 12/02/2020 Encounters Date Type Department Care Team Description 05/15/2025 Scan HEALTH INFO SRVCS Scanned, Doc [facility] Colonoscopy Report (SCAN) 05/04/2025 8:11 AM CDT - 05/04/2025 11:59 PM CDT Hospital Encounter [facility] [place] [address] Ame Callejas, HAILEY Discharge Disposition: Home or Self Care (Routine Discharge) 05/04/2025 Travel 04/19/2025 3:13 PM CDT - 04/19/2025 11:59 PM CDT Hospital Encounter [facility] [place] [address] Ame Callejas, HAILEY Discharge Disposition: Home or Self Care (Routine Discharge) 04/19/2025 Travel 04/12/2025 11:30 AM CDT - 04/12/2025 11:59 PM CDT Hospital En[facility] [place] [address] Ame Callejas, HAILEY Discharge Disposition: Home or Self Care (Routine Discharge) 04/12/2025 Travel 04/11/2025 Scan [email or web address] SRVCS Scanned, Doc Med [facility] 04/05/2025 1:57 PM CDT - 04/05/2025 11:59 PM CDT Hospital Encounter [facility] [place] [address] Ame Callejas, SWAT TEAM MEMBER Discharge Disposition: Home or Self Care (Routine Discharge) 04/05/2025 Travel 03/26/2025 Scan [email or web address] SRVCS Scanned, Doc Med Group from Last 3 Months Immunizations Immunization Administration Dates Next Due Fluzone (IIV3, Trivalent, 0.5 ML Prefilled Syrin ge) 08/04/2024 Fluzone 6 Months+ Quad (0.5 mL Prefilled Syringe ) 09/10/2022,08/13/2021 Influenza (Generic) 09/15/2013 Influenza Adult (Generic) 08/30/2019,11/22/2017 PFIZER COVID-19 (12+) MRNA, LNP-S, PF, MAIKEL-SUCROSE, 30 MCG/0.3 ML (COMIRNATY) 08/31/2024 PFIZER COVID-19 (PEREIRA CAP), MRNA, LNP-S, PF, 30 MCG/0.3 ML MAIKEL-SUCROSE, IM 07/09/2022 Pneumococcal (Prevnar 20) 12/20/2023 Shingrix 06/28/2023,04/10/2023 Tdap (Generic) 12/20/2023 Family History Medical History Relation Comments Diabetes Mother Stroke Mother Relation Status Comments Mother Social History Tobacco Use Types Packs/Day Years Used Date Smoking Tobacco: Never Passive Smoke Exposure: Never Smokeless Tobacco: Never Tobacco Cessation:Counseling Given: No Comments:doctor will dicuss if necessary Alcohol Use [...] Date Recorded Patient Health Questionnaire-2 Score 0 12/01/2024 Comments No Sex and Gender Information Value Date Recorded Sex Assigned at Female 01/11/2025 2:51 PM REHABILITATION INSPECTOR Legal Sex Female 7:01 PM CDT Gender Identity Not on file Sexual Orientation Not on file Last Filed Vital Signs Vital Sign Reading Time Taken Comments Blood Pressure 156/80 01/15/2025 11:36 PM CDT Pulse 72 01/15/2025 11:36 PM CDT Temperature 36.5 C (97.7 F) 01/15/2025 4:58 PM CDT Respiratory Rate 18 01/15/2025 11:36 PM CDT Oxygen Saturation 98% 01/15/2025 11:36 PM CDT Inhaled Oxygen Concentration - - Weight 71.2 kg (157 lb) 01/15/2025 4:44 PM CDT Height 170.2 cm (5' 7) 01/15/2025 4:44 PM CDT Body Mass Index 24.59 01/15/2025 4:44 PM CDT Plan of Treatment Upcoming Encounters Date Type Department Care Team (Late st Contact Info) Description 06/04/2025 9:[address] [facility] [place] [address] Ame Callejas, HAILEY [address] [place], [place] [id number] Health Maintenance Due Date Last Done Comments COVID-19 Vaccine (6 - Moderna risk 2023- season) 2025 08/31/2024, 07/09/2022, 09/12/2021, Additional history exists Annual Physical 06/26/2025 06/26/2024, 11/08, 10/09/2019 Mammogram Screening 04/10/2027 04/10/2025, 08/08/2024, 12/08/2023, Additional history exists DTaP, Tdap and Td Vaccines (2 - Td or Tdap) 12/20/2033 12/20/2023 Colorectal Cancer Screening Colonoscopy (10 Years) 05/15/2035 05/15/2025, 04/04/2024, 04/04/2024, Additional history exists RSV Immunization or 60+ Years (1 - 1-dose 75+ series) 2039 Zoster Vaccines Completed 06/28/2023, 04/10/2023 Hepatitis C Completed 09/02/2023, 08/09, 10/02/2019 Pneumococcal Vaccine: 50+ Years Completed 12/20/2023 PHQ-2 (Physician [place]) Completed 12/01/2024 Meningococcal B Vaccine Aged Out No l onger eligible based on patient's age to complete this topic Meningococcal Vaccine Aged Out No maria eugenia sheree eligible based on patient's age to complete this topic RSV Immunizations Under 20 Months Aged Out No longer eligible based on patient's age to complete this topic Procedures Procedure Name Priority Date/Time Associated Diagnosis Comments COLONOSCOPY GENERIC (SCAN ORDER) 05/15/2025 MG DIAG W VAL RT DIGI Routine 08/08/2024 2:48 PM CDT Abnormal mammogram of right breast HEPATITIS C ANTIBODY Routine 10/02/2019 9:05 AM REHABILITATION INSPECTOR Need for hepatitis C screening test from Last 3 Months or Most Recently Relevant to Health Maintenance Results * COLONOSCOPY GENERIC (SCAN ORDER) (05/15/2025) 05/15/2025 [facility] Scanned SCANNING Final Resu lt * HEPATITIS C ANTIBODY (10/02/2019 9:05 AM REHABILITATION INSPECTOR) HEPATITIS C AB NON-REACTI VE NON-REACTI VE 10/02/2019 2:40 PM REHABILITATION INSPECTOR [facility] 10/02/2019 9:05 AM REHABILITATION INSPECTOR Joaquim Ferguson MD LABORATORY Final R esult [facility] [address] [place] [address], from Last 3 Months or Most Recently Relevant to Health Maintenance Insurance MEDICARE [facility] Advance Directives * Full Code (Latest Code Status on File) Date Activated Date Inactivated Comments 04/05/2024 9:47 PM 01/15/2025 4:35 PM Care Teams Border Patrol Agent Relationship Specialty Start Date End Date Joaquim Ferguson MD [address] [place] [address] PCP - General FAMILY PRACTICE 12/20/17 Angi Chew MD [address] [place] [address] Iris Gas Transfer Operator INTERVENTIONAL CARDIOLOGY 04/11/18
--- OUTSIDE RECORDS SUMMARY | 2025-05-31 11:30 | XMS_ITS | Encounter Summary ---
Author Organization [facility] Address [facility] [place] [address] Care Team Providers Care Grid Caster Name Role Phone Cynthia Oakley MD Primary Care Provider [phone] Cynthia Oakley MD Primary Care Provider [phone] Kenneth Thayer MD Primary Care Provider [phone] Kenneth Thayer MD Primary Care Provider [phone] Kenneth Thayer MD Primary Care Provider [phone] Kenneth Thayer MD Primary Care Provider +[phone] Kenneth Thayer MD Primary Care Provider +[phone] Kenneth Thayer MD Primary Care Provider +[phone] Kenneth Thayer MD Primary Care Provider +[phone] Kenneth Thayer MD Primary Care Provider +[phone] Kenneth Thayer MD Primary Care Provider +[phone] Kenneth Thayer MD Primary Care Provider +[phone] Kenneth Thayer MD Primary Care Provider +[phone] Kenneth Thayer MD Primary Care Provider +[phone] Kenneth Thayer MD Primary Care Provider +[phone] Kenneth Thayer MD Primary Care Provider Kenneth [...] Primary Care Provider Angi Chew MD Unavailable [phone] Encounter Details Date Type Department Care Team (Latest Contact Info) Description 08/15/2014 Abstract [facility] Medical Group Madina Marin MD Social History Tobacco Use Types Packs/Day Years Used Date Smoking Tobacco: Never Assessed Comments Unknown Sex and Gender Information Value Date Recorded Sex Assigned at Female 01/11/2025 2:51 PM BITE BLOCK MAKER Legal Sex Female 7:01 PM CDT Gender Identity Not on file Sexual Orientation Not on file documented as of this encounter Plan of Treatment Upcoming Encounters Date Type Department Care Team (Late st Contact Info) Description 06/04/2025 9:00 AM CDT Appointment [facility] [place] [address] Ame Callejas, HAILEY [address] [place] [address] documented as of this encounter Visit Diagnoses Not on filedocumented in this encounter Additional Health Concerns Infection Onset Date Last Indicated Resolved Time COVID-19 Rule Out 11/14/2021 11/14/2021 11/14/2021 10:58 AM BITE BLOCK MAKER COVID-19 Rule Out 10/29/2023 10/29/2023 10/29/2023 1:20 PM BITE BLOCK MAKER COVID-19 Rule Out 01/03/2024 01/03/2024 01/03/2024 4:13 PM BITE BLOCK MAKER COVID-19 Rule Out 04/19/2024 04/19/2024 04/19/2024 10:24 AM CDT documented as of this encounter Care Teams Grid Caster Relationship Specialty Start Date End Date Cynthia Oakley MD PCP - General 04/19/17 12/19/17 Cynthia Oakley MD PCP - General 04/02/17 04/18/17 Kenneth Thayer MD [address] [place], [place] [address] PCP - General 02/22/17 04/01/17 Kenneth Thayer MD [address] [place], [place] [address] PCP - General 12/18/16 02/21/17 Kenneth Thayer MD [address] [place], [place] [id number] PCP - General 12/11/16 12/17/16 Kenneth Thayer MD [address] [place] [address] PCP - General 12/04/16 12/10/16 Kenneth Thayer MD [address] [place], [place] [address] PCP - General 08/17/16 12/03/16 Kenneth Thayer MD [address] [place], [place] [address] PCP - General 03/20/16 08/16/16 Kenneth Thayer MD [address] [place], [place] [address] PCP - General 01/06/16 03/19/16 Kenneth Thayer MD [address] [place], [place] [address] PCP - General 01/01/16 01/05/16 Kenneth Thayer MD [address] [place], [place] [address] PCP - General 11/04/15 12/31/15 Kenneth Thayer MD [address] [place], [place] [address] PCP - General 10/19/15 11/03/15 Kenneth Thayer MD [address] [place] [address] PCP - General 10/18/15 10/18/15 Kenneth Thayer MD [address] [place], [place] [id number] PCP - General 10/07/15 10/17/15 Kenneth Thayer MD [address] [place], [place] [id number] PCP - General 09/09/15 10/06/15 Kenneth Thayer MD [address] [place], [place] [address] PCP - General 05/29/15 09/08/15 Kenneth Thayer MD [address] [place], [place] [address] PCP - General 05/15/15 05/28/15 Kenneth Thayer MD [address] [place], [place] [address] PCP - General 02/27/15 05/14/15 Kenneth Thayer MD [address] [place], [place] [address] PCP - General 02/16/15 02/26/15 Kenneth Thayer MD [address] [place] [address] PCP - General 01/04/15 02/15/15 Kenneth Thayer MD [address] [place], [place] [address] PCP - General 11/30/14 01/03/15 Kenneth Thayer MD [address] [place], [place] [address] PCP - General 10/11/14 11/29/14 Kenneth Thayer MD [address] [place] [address] PCP - General 09/07/14 10/10/14 Kenneth Thayer MD [address] [place], [place] [address] PCP - General 08/24/14 09/06/14 Kenneth Thayer MD [address] [place], [place] [address] PCP - General 08/22/14 08/23/14 Kenneth Thayer MD [address] [place], [place] [address] PCP - General 08/17/14 08/21/14 Kenneth Thayer MD [address] [place] [address] PCP - General 06/20/14 08/16/14 Joaquim Ferguson MD [address] [facility] [address] [place] [address] PCP - General FAMILY PRACTICE 12/20/17 Angi Chew MD [address] [facility] [address] [place] [address] Iris Grommet Machine Operator INTERVENTIONAL CARDIOLOGY 04/11/18 documented as of this encounter
--- OUTSIDE RECORDS SUMMARY | 2025-05-31 11:30 | XMS_ITS | Encounter Summary ---
Author Organization [facility] Address [facility] [place] [address] Care Team Providers Care Bulk Tank Car Unloader Name Role Phone Cynthia Oakley MD Primary Care Provider [phone] Cynthia Oakley MD Primary Care Provider [phone] Kenneth Thayer MD Primary Care Provider [phone] Kenneth Thayer MD Primary Care Provider [phone] Kenneth Thayer MD Primary Care Provider [phone] Kenneth Thayer MD Primary Care Provider +[phone] Kenneth Thayer MD Primary Care Provider +[phone] Kenneth Thayer MD Primary Care Provider +[phone] Kenneth Thayer MD Primary Care Provider +[phone] Kenneth Thayer MD Primary Care Provider +[phone] Kenneth Thayer MD Primary Care Provider +[phone] Kenneth Thayer MD Primary Care Provider +[phone] Kenneth Thayer MD Primary Care Provider +[phone] Kenneth Thayer MD Primary Care Provider +[phone] Kenneth Thayer MD Primary Care Provider [phone] Kenneth Thayer MD Primary Care Provider Joaquim Ferguson MD Primary Care Provider Angi Chew MD Unavailable [phone] Encounter Details Date Type Department Care Team (Latest Contact Info) Description 06/12/2015 Abstract [facility] Medical Group Madina Marin MD Social History Tobacco Use Types Packs/Day Years Used Date Smoking Tobacco: Never Assessed Comments Unknown Sex and Gender Information Value Date Recorded Sex Assigned at Female 01/11/2025 2:51 PM HUMAN PERFORMANCE CONSULTANT Legal Sex Female 7:01 PM CDT Gender Identity Not on file Sexual Orientation Not on file documented as of this encounter Plan of Treatment Upcoming Encounters Date Type Department Care Team (Late st Contact Info) Description 06/04/2025 9:00 AM CDT Appointment [facility] [place] [address] Ame Callejas, HAI[address] [place] [address] documented as of this encounter Visit Diagnoses Not on filedocumented in this encounter Additional Health Concerns Infection Onset Date Last Indicated Resolved Time COVID-19 Rule Out 11/14/2021 11/14/2021 11/14/2021 10:58 AM HUMAN PERFORMANCE CONSULTANT COVID-19 Rule Out 10/29/2023 10/29/2023 10/29/2023 1:20 PM HUMAN PERFORMANCE CONSULTANT COVID-19 Rule Out 01/03/2024 01/03/2024 01/03/2024 4:13 PM HUMAN PERFORMANCE CONSULTANT COVID-19 Rule Out 04/19/2024 04/19/2024 04/19/2024 10:24 AM CDT documented as of this encounter Care Teams Bulk Tank Car Unloader Relationship Specialty Start Date End Date Cynthia Oakley MD PCP - General 04/19/17 12/19/17 Cynthia Oakley MD PCP - General 04/02/17 04/18/17 Kenneth Thayer MD [address] [place] [address] PCP - General 02/22/17 04/01/17 Kenneth Thayer MD [address] [place] [address] PCP - General 12/18/16 02/21/17 Kenneth Thayer MD [address] [place], [place] [address] PCP - General 12/11/16 12/17/16 Kenneth Thayer MD [address] [place], [place] [address] PCP - General 12/04/16 12/10/16 Kenneth Thayer MD [address] [place], [place] [address] PCP - General 08/17/16 12/03/16 Kenneth Thayer MD [address] [place], [place] [address]479 PCP - General 03/20/16 08/16/16 Kenneth Thayer MD [address] [place], [place] [address] PCP - General 01/06/16 03/19/16 Kenneth Thayer MD [address] [place] [address] PCP - General 01/01/16 01/05/16 Kenneth Thayer MD [address] [place] [address] PCP - General 11/04/15 12/31/15 Kenneth Thayer MD [address] [place], [place] [address] PCP - General 10/19/15 11/03/15 Kenneth Thayer MD [address] [place], [place] [address] PCP - General 10/18/15 10/18/15 Kenneth Thayer MD [address] [place], [place] [address] PCP - General 10/07/15 10/17/15 Kenneth Thayer MD [address] [place], [place] [address] PCP - General 09/09/15 10/06/15 Kenneth Thayer MD [address] [place], [place] [address] PCP - General 05/29/15 09/08/15 Joaquim Ferguson MD [address] [place] [address] PCP - General FAMILY PRACTICE 12/20/17 Angi Chew MD [address] [place] [address] [place] Payroll Associate INTERVENTIONAL CARDIOLOGY 04/11/18 documented as of this encounter
--- OUTSIDE RECORDS SUMMARY | 2025-05-31 11:30 | XMS_ITS | Encounter Summary ---
Author Organization [facility] Address [facility] access hospital[address] [place] [address] Care Team Providers Care Bag Filler Name Role Phone Cynthia Oakley MD Primary Care Provider [phone] Cynthia Oakley MD Primary Care Provider [phone] Kenneth Thayer MD Primary Care Provider [phone] Kenneth Thayer MD Primary Care Provider [phone] Kenneth Thayer MD Primary Care Provider [phone] Kenneth Thayer MD Primary Care Provider +[phone] Kenneth Thayer MD Primary Care Provider [phone] Kenneth Thayer MD Primary Care Provider +[phone] [...] Primary Care Provider Angi Chew MD Unavailable [phone] Encounter Details Date Type Department Care Team (Latest Contact Info) Description 08/10/2014 Abstract [facility] Medical Group Madina Marin MD Social History Tobacco Use Types Packs/Day Years Used Date Smoking Tobacco: Never Assessed Comments Unknown Sex and Gender Information Value Date Recorded Sex Assigned at Female 01/11/2025 2:51 PM BRAZER CRAWLER TORCH Legal Sex Female 7:01 PM CDT Gender Identity Not on file Sexual Orientation Not on file documented as of this encounter Plan of Treatment Upcoming Encounters Date Type Department Care Team (Late st Contact Info) Description 06/04/2025 9:00 AM CDT Appointment [facility] [place] [address] Ame Callejas, HAI[address] [place] [address] documented as of this encounter Visit Diagnoses Not on filedocumented in this encounter Additional Health Concerns Infection Onset Date Last Indicated Resolved Time COVID-19 Rule Out 11/14/2021 11/14/2021 11/14/2021 10:58 AM BRAZER CRAWLER TORCH COVID-19 Rule Out 10/29/2023 10/29/2023 10/29/2023 1:20 PM BRAZER CRAWLER TORCH COVID-19 Rule Out 01/03/2024 01/03/2024 01/03/2024 4:13 PM BRAZER CRAWLER TORCH COVID-19 Rule Out 04/19/2024 04/19/2024 04/19/2024 10:24 AM CDT documented as of this encounter Care Teams Bag Filler Relationship Specialty Start Date End Date Cynthia Oakley MD PCP - General 04/19/17 12/19/17 Cynthia Oakley MD PCP - General 04/02/17 04/18/17 Kenneth Thayer MD [address] [place], [place] [address] PCP - General 02/22/17 04/01/17 Kenneth Thayer MD [address] [place], [place] [address] PCP - General 12/18/16 02/21/17 Kenneth Thayer MD [address] [place], [place] [address] PCP - General 12/11/16 12/17/16 Kenneth Thayer MD [address] [place] [address] PCP - General 12/04/16 12/10/16 Kenneth Thayer MD [address] [place], [place] [address] PCP - General 08/17/16 12/03/16 Kenneth Thayer MD [address] [place], [place] [address] PCP - General 03/20/16 08/16/16 Kenneth Thayer MD [address] [place], [place] [address] PCP - General 01/06/16 03/19/16 Kenneth Thayer MD [address] [place], [place] [address] PCP - General 01/01/16 01/05/16 Kenneth Thayer MD [address] [place], [place] [address] PCP - General 11/04/15 12/31/15 Kenneth Thayer MD [address] [place], [place] [address] PCP - General 10/19/15 11/03/15 Kenneth Thayer MD [address] [place] [address] PCP - General 10/18/15 10/18/15 Kenneth Thayer MD [address] [place], [place] [address] PCP - General 10/07/15 10/17/15 Kenneth Thayer MD [address] [place], [place] [address] PCP - General 09/09/15 10/06/15 Kenneth Thayer MD [address] [place] [address] PCP - General 05/29/15 09/08/15 Kenneth Thayer MD [address] [place], [place] [address] PCP - General 05/15/15 05/28/15 Kenneth Thayer MD [address] [place], [place] [address] PCP - General 02/27/15 05/14/15 Kenneth Thayer MD [address] [place], [place] [address] PCP - General 02/16/15 02/26/15 Kenneth Thayer MD [address] [place] [address] PCP - General 01/04/15 02/15/15 Kenneth Thayer MD [address] [place], [place] [address] PCP - General 11/30/14 01/03/15 Kenneth Thayer MD [address] [place], [place] [address] PCP - General 10/11/14 11/29/14 Kenneth Thayer MD [address] [place], [place] [address] PCP - General 09/07/14 10/10/14 Kenneth Thayer MD [address] [place], [place] [address] PCP - General 08/24/14 09/06/14 Kenneth Thayer MD [address] [place], [place] [address] PCP - General 08/22/14 08/23/14 Kenneth Thayer MD [address] [place], [place] [address] PCP - General 08/17/14 08/21/14 Kenneth Thayer MD [address] [place] [address] PCP - General 06/20/14 08/16/14 Joaquim Ferguson MD [address] [facility] [address] [place] [address] PCP - General FAMILY PRACTICE 12/20/17 Angi Chew MD [address] [facility] [address] [place] [address] Iris Laborer Cement Gun Placing INTERVENTIONAL CARDIOLOGY 04/11/18 documented as of this encounter
--- NOTE | 2025-05-31 13:11 | ED_ITS ---
HPI - Eye Problem General Chief complaint: Eye Problems Stated complaint: Swelling right eye-blurry vision-no known inj Time Seen by Provider: 05/31/25 13:11 Focused HPI: This is a 60 year old female that presents to the ER for eye problems. Reports for the last couple of days her right eye has been red, she has had swelling of the eyelid, as well as pain. Also reports drainage. Reports light sensitivity. Reports she takes immunosuppressants for history of Chron's. GENERAL: Well-appearing, well-nourished, and in no acute distress. HEAD: Normocephalic, atraumatic. ENT: Redness and swelling noted to the right lower eyelid with abnormal drainage present CHEST: Clear to auscultation. ?No respiratory distress. HEART: Regular rate and rhythm.? NEURO: ?Alert and oriented x3. Patient screened in triage and initial orders placed.? ?Additional care and disposition to be based upon?diagnostic testing and treatment. Related Data Home Medications ?Medication ?Instructions ?Recorded ?Confirmed ?Last Taken ?Type calcium 315 mg (as 1 tablet PO DAILY 04/15/22 05/09/24 Unknown History citrate)-vitamin D3 6.25 mcg (250 unit) tablet (Citracal + Vitamin D Maximum) prednisolone 5 mg tablet 2.5 mg PO BID 04/15/22 05/09/24 Unknown History triamcinolone acetonide 10 mg/mL 2 mg Infiltration ONCE PRN 08/25/23 05/09/24 Unknown History suspension for injection (Kenalog) upadacitinib 15 mg tablet,extended 15 mg PO DAILY 08/25/23 05/09/24 Unknown History release 24 hr (Rinvoq) risankizumab-rzaa 360 mg/2.4 mL mg subcut 05/09/24 05/09/24 Unknown History (150 mg/mL) subcut wearable injector (Skyrizi) Allergies Allergy/AdvReac Type Severity Reaction Status Date / Time iodine AdvReac Intermediate Nausea Verified 05/31/25 11:26 PMFSH Past Medical History Medical History Anal fissure Anxiety Crohn disease 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 Ulcer Surgical History Surgical History History of colostomy History of hysterectomy and still has ovaries per patient S/P laparoscopic surgery Tubal ligation status Family History Family History Other Asthma Cerebrovascular accident Diabetes mellitus Hypertension Social History Social History Smoking status: Never smoker Alcohol intake: never Substance use: never Lack of Transportation: No Lack of Food: Never True Current Housing: I Have Housing Concerned About Future Housing: No Difficulty Paying Gas/Electric Bills: No Difficulty Paying for Meds: No Currently Unemployed: No Education: Master's Degree or Higher Difficulty w/ Childcare or Family Care: No Living arrangements: with family Occupation/Education: occupation Gender identity (if verbalized by the patient): Female Sexual Orientation (if Verbalized by the Patient): Straight or Heterosexual Course Vital Signs Vital signs: Vital Signs Temperature 98 F 05/31/25 11:29 Pulse Rate 75 05/31/25 11:29 Respiratory Rate 16 05/31/25 11:29 Blood Pressure 167/87 H 05/31/25 11:29 Pulse Oximetry 100 05/31/25 11:29 Oxygen Delivery Room Air 05/31/25 11:29 Temperature 98 F 05/31/25 11:29 Pulse Rate 75 05/31/25 11:29 Respiratory Rate 16 05/31/25 11:29 Blood Pressure 167/87 H 05/31/25 11:29 Pulse Oximetry 100 05/31/25 11:29 Oxygen Delivery Room Air 05/31/25 11:29 Discharge Plan Discharge Patient Language: Azerbaijani Prescriptions: No Action Skyrizi 360 mg/2.4 mL (150 mg/mL) wearable injector subcut valacyclovir 500 mg tablet 500 mg PO DAILY Qty: 90 3RF estradiol [Yuvafem] 10 mcg tablet 10 mcg vaginal 2XW Qty: 24 3RF Rx Instructions: Maintenance dose calcium citrate-vitamin D3 [Citracal + D Maximum] 315 mg-6.25 mcg (250 unit) tablet 1 tablet PO DAILY prednisolone 5 mg tablet 2.5 mg PO BID Rinvoq 15 mg tablet extended release 24 hr 15 mg PO DAILY Kenalog 10 mg/mL suspension 2 mg Infiltration ONCE PRN Rx Instructions: at Derm office acetaminophen 500 mg tablet 1,000 mg PO TID PRN (Reason: benjamin) 7 Days Qty: 42 0RF Follow-up/Referrals: PHYSICIAN NOT ON STAFF,NONSTAFF [Primary Care Provider] -
--- OUTSIDE RECORDS SUMMARY | 2025-05-31 14:13 | XMS_ITS | Encounter Summary ---
Author Organization [facility] Healthcare Address [address] [place] [address] Care Team Providers Care Residential Program Worker Name Role Phone Abhijit Quispe MD Unavailable [phone] Robyn Richardson NP Unavailable [phone] Shruthi Oakley MD Unavailable [phone] Ivy Ugalde MD Unavailable [phone] Darrion Mukherjee [facility] Primary Care Provi phan Francisco Wild MD Unavailable [phone] Reason for Visit * Reason Onset Date Comments Symptom Based Call 05/31/2025 Encounter Details Date Type Department Care Team (Late st Contact Info) Description 05/31/2025 Telephone [facility] Medical Group Family Medicine [address] [facility] [address] [place] [address] Darrion Mukherjee, [address] [address] Symptom Based Call Social History [...] on file Legal Sex Female 8:40 PM PATIENT CASE MANAGER Gender Identity Female 01/27/2019 10:37 AM CDT Sexual Orientation Straight 10/10/2021 6: 35 AM PATIENT CASE MANAGER documented as of this encounter Miscellaneous Notes [...] on filedocumented in this encounter Care Teams Residential Program Worker Relationship Specialty Start Date End Date Darrion Mukherjee DNP [address] [facility] [address] [address] PCP - General Family Medicine 02/12/25 Abhijit Quispe MD [address] [facility] [phone] [place] [address] Surgeon Colon and Rectal Surgery 12/01/21 [place] [address] [place] [address] Nurse Practitioner Wound Care 02/27/23 [place] [id number] [place] [phone] Consulting Physician Dermatology 02/27/23 Ivy Ugalde MD [address] [address] [place] [phone] Referring Physician Gastroenterology 04/22/24 Francisco Wild MD [address] [facility] [place] [address] Dermatology 03/27/25 documented as of this encounter
--- OUTSIDE RECORDS SUMMARY | 2025-05-31 14:13 | XMS_ITS | Encounter Summary ---
Author Organization [facility] Address [address] [place] [address] Care Team Providers Care Physical Aerodynamicist Name Role Phone Joaquim Ferguson MD Primary Care Provider Angi Chew MD Unavailable [phone] Encounter Details Date Type Department Care Team (Late st Contact Info) Description 09/04/2024 [place] Message Enc [facility] [place] [address] Ame Callejas, HAILEY [address] [place] [address] Antibiotic Social History Tobacco Use [...] Sex Assigned at Female 01/11/2025 2:51 PM SUPPORT DBA Legal Sex Female 7:01 PM CDT Gender Identity Not on file Sexual Orientation Not on file documented as of this encounter Plan of Treatment Upcoming Encounters Date Type Department Care Team (Late st Contact Info) Description 06/04/2025 9:00 AM CDT Appointment [facility] [place] [address] Ame Callejas, HAILEY [address] [place] [address] documented as of this encounter Visit Diagnoses Not on filedocumented in this encounter Additional Health Concerns Assessment Noted Time PHQ-9 Depression Total Score: 0 11/27/19 22 10:23 AM SUPPORT DBA documented as of this encounter Care Teams Physical Aerodynamicist Relationship Specialty Start Date End Date Joaquim Ferguson MD [address] [facility] [address] [place] [address] PCP - General FAMILY PRACTICE 12/20/17 Angi Chew MD [address] [address] [place] [address] Grayson Band Sawing Machine Operator INTERVENTIONAL CARDIOLOGY 04/11/18 documented as of this encounter
--- OUTSIDE RECORDS SUMMARY | 2025-05-31 14:13 | XMS_ITS | Encounter Summary ---
Author Organization [facility] Healthcare Address [address] [place] [address] Care Team Providers Care Director Custom Name Role Phone Abhijit Quispe MD Unavailable [phone] Robyn Richardson NP Unavailable [phone] Shruthi Oakley MD Unavailable [phone] Ivy Ugalde MD Unavailable [phone] Desirae Mukhereje [facility] Primary Care Provi phan Francisco Wild MD Unavailable [phone] Encounter Details Date Type Department Care Team (Late st Contact Info) Description 04/15/2025 Results Follow-Up [facility] Medical Group Family Medicine [address] [facility] [address] [place] [address] Desirae Mukherjee, [address] [place] [address] Screening Mammogram Bilateral W Roney [...] on file Legal Sex Female 8:40 PM UNDER PRESSER Gender Identity Female 01/27/2019 10:37 AM CDT Sexual Orientation Straight 10/10/2021 6: 35 AM UNDER PRESSER documented as of this encounter Plan of Treatment Not on file documented as of this encounter Visit Diagnoses Not on filedocumented in this encounter Care Teams Director Custom Relationship Specialty Start Date End Date Desirae Mukherjee DNP [address] [facility] [address] [address] PCP - General Family Medicine 02/12/25 Abhijit Quispe MD [address] [facility] [phone] [place] [address] Surgeon Colon and Rectal Surgery 12/01/21 Robyn [place] [id number] [place] [phone] Nurse Practitioner Wound Care 02/27/23 [place] [address] [place] [address] Consulting Physician Dermatology 02/27/23 Ivy Ugalde MD [address] [place] [address] Referring Physician Gastroenterology 04/22/24 Francisco Wild MD [address] [facility] [place] [address] Dermatology 03/27/25 documented as of this encounter
--- OUTSIDE RECORDS SUMMARY | 2025-05-31 14:13 | XMS_ITS | Encounter Summary ---
Author Organization [facility] Healthcare Address [address] [place] [address] Care Team Providers Care Ticket Scheduler Name Role Phone Abhijit Quispe MD Unavailable [phone] Robyn Richardson NP Unavailable [phone] Shruthi Oakley MD Unavailable [phone] Ivy Ugalde MD Unavailable [phone] [facility] Primary Care Provi phan Francisco Wild MD Unavailable [phone] Reason for Visit * Reason Comments Eye Problem Right eye. Started T uesday and became worse last night. Has taken TYL. Very watery this morning. Encounter Details Date Type Department Care Team (Late st Contact Info) Description 05/31/2025 8:45 AM CDT Office Visit [facility] at [address] [id number] Lou Villeda PA [address] [place] [address] [address] [place] [address] Eye pain, right (Primary Dx) [...] on file Legal Sex Female 8:40 PM AUDIOVISUAL AIDS TECHNICIAN Gender Identity Female 01/27/2019 10:37 AM CDT Sexual Orientation Straight 10/10/2021 6: 35 AM AUDIOVISUAL AIDS TECHNICIAN documented as of this encounter Last Filed [...] 05/15/2025 added in this encounter Care Teams Ticket Scheduler Relationship Specialty Start Date End Date Lonny Desirae JACOBY Michel [address] [facility] [address] [facility] [place] [address] PCP - General Family Medicine 02/12/25 Abhijit Quispe MD [phone] [place] [address] Surgeon Colon and Rectal Surgery 12/01/21 [place] [address] [place] [address] Nurse Practitioner Wound Care 02/27/23 [place] [address] [place] [address] Consulting Physician Dermatology 02/27/23 Ivy Ugalde MD [address] [address] [place] [address] Referring Physician Gastroenterology 04/22/24 Francisco Wild MD [address] [facility] [place] [address] Dermatology 03/27/25 documented as of this encounter
--- OUTSIDE RECORDS SUMMARY | 2025-05-31 14:13 | XMS_ITS | Continuity of Care Document ---
Author Name [facility] Organization [facility] Care Team Providers Care Special Educator Name Role Phone [facility] Unavailable Unavailable Problems [...] ORAL, AUROBINDO PHARM, 100 ea. BOTTLE Active [id number] 4 2023 10 Pharmac y Data Transac tion Service Facilit y AMOX TR-POTASSIU M CLAVULANATE (AMOXICILLI N/POTASSIUM CLAV), 875-125 MG, TABLET, ORAL, SANDOZ, 20 ea. BOTTLE Active [id number] 4 2023 10 Pharmac y Data Transac tion Service Facilit y CLENPIQ (sodium picosulfate /magnesium oxide/citri c acid), 10-3.5/175, SOLUTION, ORAL, [employer], 350 ml BOTTLE Cancele d [id number] : 2023 0 Pharmac y Data Transac tion Service Facilit y CLENPIQ (sodium picosulfate /magnesium oxide/citri c acid), 10-3.5/175, SOLUTION, ORAL, [employer], 350 ml BOTTLE Active [id number] 4 2023 350 Pharmac y Data Transac tion Service Facilit y FLUCONAZOLE (FLUCONAZOL E), 150 MG, TABLET, ORAL, 'S LAB, 12 ea. BLIST PACK Active [id number] 4 2023 2 Pharmac y Data Transac tion Service Facilit y FLUTICASONE PROPIONATE (FLUTICASON E PROPIONATE) , 50MCG, SPRAY SUSP, NASAL, GALE LABS., 16 g AER W/ADAP Active [id number] 4 2023 16 Pharmac y Data Transac tion Service Facilit y HYOSCYAMINE SULFATE (HYOSCYAMIN E SULFATE), 0.125 MG, TAB SUBL, SUBLINGUAL, ACELLA PHARMACE, 100 ea. BOTTLE Active [id number] 2023 120 Pharmac y Data Transac tion Service Facilit y LEVOFLOXACI N (levofloxac in), 750 MG, TABLET, ORAL, CAMBER PHARMACE, 20 ea. BOTTLE Active [id number] 4 2023 5 Pharmac y Data Transac tion Service Facilit y MESALAMINE (mesalamine ), 1000 MG, SUPP.RECT, RECTAL, ZYDUS PHARMACEU, [address] Cancele d [id number] : 2023 0 Pharmac y Data Transac tion Service Facilit y RINVOQ (upadacitin ib), 15 MG, TAB ER 24H, ORAL, [employer], 30 ea. BOTTLE Active [id number] 2023 30 Pharmac y Data Transac tion Service Facilit y SKYRIZI ON-BODY (risankizum ab-rzaa), 360 MG/2.4, WEAR INJCT, SUBCUT, [employer], 2.4 ml CARTRIDGE Cancele d [id number] : 2023 0 Pharmac y Data Transac tion Service Facilit y TRAMADOL HCL (tramadol HCl), 50 MG, TABLET, ORAL, AMNEAL PHARMACE, 500 ea. BOTTLE Cancele d [id number] : 2023 0 Pharmac y Data Transac tion Service Facilit y TRAMADOL HCL (tramadol HCl), 50 MG, TABLET, ORAL, AMNEAL PHARMACE, 500 ea. BOTTLE Active [id number] 4 2023 28 Pharmac y Data Transac tion Service Facilit y Allergies, Adverse Reactions, Alerts Combined list of allergies from Department of Defense and Veterans Affairs facilities. It does not include entries that were removed or entered in error. Substance Category Reaction Severity Reaction type Status Date Reported Comments Source OTHER Drug allergy (disorder) Unknown active 01/13/2005 [facility] ([facility]) Immunizations Combined list of available immunizations from the Department of Defense and Veterans Affairs facilities. Immunization Series Date Given Administered By Site Reaction Lot Number CVX Code Drug Bullet Lubricant Mixer Status Comments Source COVID-19, mRNA, LNP-S, PF, [...] QUADRIVALENT, PRESERVATIVE FREE 2018 150 complet ed [facility] N tuberculin skin test; purified protein derivative solution, intradermal 1 2003 Unknown, Provider [id number] Sanofi Pasteur ([facility]) complet ed tuberculi [...] ADM Date DC Date Status Disposition Source [facility] ([facility]) DIRECT TO [facility] FROM OTHER THAN ER OR [facility] [id number] CALLY JESUS 01/12 DISCHARGED HOME [facility] MARTINEZ ([facility]) [facility] Jya MARTINEZ ([facility]) ER, DIRECT TO IDF [id number] OPAL DUNCAN 04/03 DISCHARGED HOME [facility]ART[facility] ([facility]) [facility] MARTINEZ ([facility]Gas troentero logy Resource Sharing) OUTPATIENT [id number] f/u hospita l YG SHER 04/07 Released w/o Limitations [facility] JOHNSTONB ([facility])(G astroen terolog y Resourc e Sharing ) [facility] ([facility]Gas troentero logy Resource Sharing) OUTPATIENT [id number] f/u meds YG SHER 04/21 Released w/o Limitations [facility] ([facility])(G astroen terolog y Resourc e Sharing ) [facility] JOHNSTONB ([facility]Gas troentero logy Resource Sharing) OUTPATIENT [id number] f/u medss YG SHER 04/28 Released w/o Limitations [facility] ([facility])(G astroen terolog y Resourc e Sharing ) [facility] JOHNSTONB ([facility]) ER, DIRECT TO IDF [id number] AMINA SAMAYOA 05/07 DISCHARGED HOME [facility] ([facility]) [facility] MARTINEZ ([facility])([facility] Medicine) INPATIENT [id number] high risk pt; Crohn's dz RJ ER, ABY 05/08 Inpatient- Still a Patient [facility] ([facility])(N utritio nal Medicin e) [facility] ([facility]Gas troentero logy Resource Sharing) OUTPATIENT [id number] medYG Faria 05/12 Released w/o Limitations [facility] ([facility])(G astroen terolog y Resourc e Sharing ) [facility]ARTINE[facility] ([facility])([facility]) INPATIENT [id number] MELANIE BONILLA Funmilayo 05/20 Inpatient- Still a Patient [facility] Jay PRESTONRajendra ([facility])(N utritio nal Medicin e) [facility]ARTINE[facility] ([facility]) ER, DIRECT TO [facility] [id number] OPAL DUNCAN 07/07 DISCHARGED HOME [facility]ARTINE[facility] ([facility]) [facility]INE[facility] ([facility]Gas troentero logy Resource Sharing) OUTPATIENT [id number] f/u hospita l YG SHER 07/14 Released w/o Limitations [facility] ([facility])(G astroen terolog y Resourc e Sharing ) [facility]ARTINE[facility]Fam lucy Practice Non-GME FHI1) OUTPATIENT [id number] throat culture PAUL LUGO 07/16 Released w/o Limitations [facility] ([facility])(F amily Practic e Non-GME FHI1) [facility]ARTINE[facility] ([facility]Gas troentero logy Resource Sharing) OUTPATIENT [id number] f/u crohns YG SHER 07/21 Released w/o Limitations [facility] ([facility])(G astroen terolog y Resourc e Sharing ) [facility] MARTINE[facility] ([facility]Gas troentero logy Resource Sharing) OUTPATIENT [id number] f/u medYG Faria 07/23 Released w/o Limitations [facility] ([facility])(G astroen terolog y Resourc e Sharing ) [facility] MARTINE[facility] ([facility])(Gas troentero logy Resource Sharing) OUTPATIENT [id number] f/u rads CHRISTOS YG E 07/30 Released w/o Limitations [facility]ON[facility] ([facility])(G astroen terolog y Resourc e Sharing ) [facility] ([facility])(Gas troentero logy Resource Sharing) OUTPATIENT [id number] remicai de in fusion CHRISTOS YG E 08/04 Released w/o Limitations [facility] ([facility])(G astroen terolog y Resourc e Sharing ) [facility] ([facility])(Fam lucy Practice Non-GME FHI2) OUTPATIENT [id number] rash on neck getting worse/t ried otc not helping PAUL LUGO 10/13 Released w/o Limitations [facility] Jay JOHNSTONB ([facility])(F amily Practic e Non-GME FHI2) [facility] ([facility])(Gas troentero logy Resource Sharing) OUTPATIENT [id number] f/u YG SHER E 10/27 Released w/o Limitations [facility] ([facility])(G astroen terolog y Resourc e Sharing ) [facility] ([facility])(Fam lucy Practice Non-GME FHI1) TELE CONSULT [id number] Verific ation of surgica l procedu re PAUL LUGO 10/28 [facility] ([facility])(F amily Practic e Non-GME FHI1) [facility] ([facility]Gas troentero logy Resource Sharing) OUTPATIENT [id number] f/u meds YG SHER E 11/05 Released w/o Limitations [facility] ([facility])(G astroen terolog y Resourc e Sharing ) [facility] [employer] ([facility])(Fam lucy Practice Non-GME FHI1) TELE CONSULT [id number] Verific ation of Surgica l Procedu re. PAUL LUGO 12/21 [facility] [employer] ([facility])(F amily Practic e Non-GME FHI1) [facility] [employer] ([facility])(Gas troentero logy Resource Sharing) OUTPATIENT [id number] b12 YG SHER 01/06 Released w/o Limitations [facility] Jay PRESTONRajendra ([facility])(G astroen terolog y Resourc e Sharing ) [facility] Jay MARTINEZ ([facility]) ER, DIRECT TO [facility] [id number] YVONNE BRIGGS CYNTHIA 01/10 DISCHARGED HOME [facility] ([facility]) [facility] ([facility] 0055) INPATIENT [id number] short d/c note YVONNE BRIGGS CYNTHIA 01/12 Inpatient- Still a Patient [facility]ART[facility] ([facility])(I bwa Clinic 005) [facility] ([facility])(Gas troentero logy Resource Sharing) OUTPATIENT [id number] f/u hosp visit YG SHER 01/12 Released w/o Limitations [facility] ([facility])(G astroen terolog y Resourc e Sharing ) [facility] Jay PRESTONRajendra ([facility]) INPATIENT [id number] b PASCUAL BLAND 01/15 Inpatient- Still a Patient [facility] Jay PRESTONRajendra ([facility])(N utritio nal Medicin e) [facility] ([facility])(Gas troentero logy Resource Sharing) OUTPATIENT [id number] jenkins andrzej cabello/ ENMA BRAR 01/20 Released w/o Limitations [facility] ([facility])(G astroen terolog y Resourc e Sharing ) [facility] ([facility])(Fam lucy Practice Non-GME FHI2) OUTPATIENT [id number] sinus infecti on ANEUDY DARBY 01/25 Released w/o Limitations [facility] ([facility])(F amily Practic e Non-GME FHI2) [facility] ([facility])(Gas troentero logy Resource Sharing) OUTPATIENT [id number] f/u scope ENMA BRAR 02/17 Released w/o Limitations [facility] ([facility])(G astroen terolog y Resourc e Sharing ) [facility] ([facility])(Leadership Rec[employer] ecology) OUTPATIENT [id number] ovarian cyst/ER referra l [id number] EDILBERTO LOPEZ 04/27 Released w/o Limitations [facility] ([facility])(G ynecolo gy) Procedures Combined list of: 1) Procedures from Department of Veterans Affairs facilities [facility], not all VA non-surgical procedures are included; 2) All procedures from the Department of Defense facilities. Procedure Procedure Type Code Date Perfomer Comments Sourc e UNLISTED SPECIAL SERVICE, PROCEDURE OR REPORT 02/03/2006 [facility] COMPUTERIZED AXIAL TOMOGRAPHY OF ABDOMEN 01/11/2006 [facility] INFUSION, NORMAL SALINE SOLUTION, 250 CC 01/09/2006 [facility] CULTURE, BACTERIAL; ANY OTHER SOURCE EXCEPT URINE, BLOOD OR STOOL, AEROBIC, WITH ISOLATION AND PRESUMPTIVE IDENTIFICATION OF ISOLATES 07/16/2005 [facility] COMPUTERIZED AXIAL TOMOGRAPHY OF ABDOMEN 07/09/2005 [facility] INJECTION, MORPHINE SULFATE, UP TO 10 MG 07/07/2005 [facility] COMPUTERIZED AXIAL TOMOGRAPHY OF ABDOMEN 05/08/2005 [facility] MEDICAL NUTRITION THERAPY; INITIAL ASSESSMENT AND INTERVENTION, INDIVIDUAL, VODU-HM-MSYS WITH THE PATIENT, EACH 15 MINUTES 05/08/2005 [facility] INFUSION, NORMAL SALINE SOLUTION, 250 CC 05/07/2005 [facility] INFUSION, NORMAL SALINE SOLUTION, 250 CC 04/02/2005 [facility] ENDOSCOPIC POLYPECTOMY OF LARGE INTESTINE 01/16/2005 [facility] CLOSED [ENDOSCOPIC] BIOPSY OF LARGE INTESTINE 01/16/2005 [facility] COMPUTERIZED AXIAL TOMOGRAPHY OF ABDOMEN 01/16/2005 [facility] INFUSION, NORMAL SALINE SOLUTION, 250 CC 01/12/2005 [facility] ELECTROCARDIOGRAM, ROUTINE ECG WITH AT LEAST 12 LEADS; TRACING ONLY, WITHOUT INTERPRETATION AND REPORT 05/23/2004 [facility] COLORECTAL CANCER SCREENING; FECAL-OCCULT BLOOD TEST, 1-3 SIMULTANEOUS DETERMINATIONS 08/29/2003 [facility] SEDATION WITH OR WITHOUT ANALGESIA (CONSCIOUS SEDATION); INTRAVENOUS, INTRAMUSCULAR OR INHALATION 05/22/2003 [facility] INJECTION, KETOROLAC TROMETHAMINE, PER 15 MG 05/11/2003 [facility] Skin Lesion GENARO Prep Skin Lesion GENARO Prep 89617 07/20/2005 ROGELIO ISERRA [facility] Nasopharyngeal Culture Streptococcus Group A Beta Hemolytic Nasopharyngeal Culture Streptococcus Group A Beta Hemolytic 50002 07/20/2005 ROGELIO HEARD [facility] Medical Nutrition Therapy Initial A e ment, Intervention Medical Nutrition Therapy Initial Assessment, Intervention 22007 05/08/2005 ABY CARTER [facility] Social History Combined list of available smoking, tobacco, and other social history from Department of Defense and Veterans Affairs facilities. Social History Type Response Date Comment Sour e This section is an empty social history section. [facility]
--- OUTSIDE RECORDS SUMMARY | 2025-05-31 14:13 | XMS_ITS | Referral Summary ---
Author Organization [facility] Medical [facility] 2 Address [address] [facility] [place] [address] Care Team Providers Care [place] Driving Name Role Phone Abhijit Qiuspe MD Unavailable [phone] Robyn Richardson NP Unavailable [phone] Shruthi Oakley MD Unavailable [phone] Ivy Ugalde MD Unavailable [phone] Desirae Mukherjee DNP Primary Care Provi phan Francisco Wild MD Unavailable [phone] Encounters Date Type Department Care Team Description 05/31/2025 Telephone [facility] Family Medicine [address] [facility] [facility] [address] [place] [address] Desirae Mukherjee DNP Symptom Based Call 05/31/2025 8:45 AM CDT Office Visit [facility] at [address] [address] Lou Villeda PA Eye pain, right (Primary Dx) 05/29/2025 8:00 AM CDT Therapy [facility] Physical Therapy [address] [facility] [address] [place] [address] Ni Garces, UBALDO Fecal incontinence due to anorectal disorder (Primary Dx); Pelvic floor dysfunction in female 05/22/2025 8:00 AM CDT Therapy [facility] Physical Therapy [address] [place] [address] [address] [place] [address] Ni Garces, PT Fecal incontinence due to anorectal disorder (Primary Dx); Pelvic floor dysfunction in female 05/17/2025 10:30 AM CDT Therapy [facility] OP Physical Therapy [address] [place] [address] [address] [place] [address] Ni Garces, PT Fecal incontinence due to anorectal disorder (Primary Dx); Pelvic floor dysfunction in female 04/17/2025 Plan of Care Documentation [facility] OP Physical Therapy [address] [place] [address] [address] [place] [address] 04/17/2025 3:15 PM CDT Therapy [facility] OP Physical Therapy [address] [place] [address] [address] [place] [address] Ni Garces, PT Fecal incontinence due to anorectal disorder; Pelvic floor dysfunction in female 04/15/2025 Results Follow-Up [facility] Medicine [address] [place] [address] [address] [place] [address] Desirae Mukherjee DNP Dexa Axial Skeleton Bone Density 1 or 2 Site 04/15/2025 Results Follow-Up [facility] Medicine [address] [place] [address] [address] [place] [address] Desirae Mukherjee DNP Screening Mammogram Bilateral W Roney 04/10/2025 10:25 AM CDT - 04/10/2025 11:59 PM CDT Hospital Encounter [facility] Medical Office [address] [place] [address] Postmenopausal; Encounter for screening Discharge Disposition: Discharge to home or self care 04/10/2025 10:15 AM CDT - 04/10/2025 11:59 PM CDT Hospital Encounter [facility] Medical Office [address] [place] [address] Mass of right breast, unspecified quadrant; Abnormal mammogram of right breast; Encounter for screening mammogram for malignant neoplasm of breast Discharge Disposition: Discharge to home or self care 03/27/2025 10:32 PM CDT - 03/27/2025 11:59 PM CDT Hospital Encounter [facility] [address] [place] [address] Discharge Disposition: Discharge to home or self care 03/26/2025 2:15 PM CDT Office Visit [facility] Surgery [facility] Floor [address] [place] [address] Abhijit Quispe MD Crohn's disease of both small and large intestine with intestinal obstruction (HCC) (Primary Dx); Colostomy care (HCC); Rectal pain; Pyoderma 03/19/[address] [place] [address] Desirae Mukherjee DNP Medical Question/Miscellane ous 03/15/2025 12:30 PM CDT Office Visit [address] [place] [address] Desirae Mukherjee DNP Bilateral carpal tunnel syndrome (Primary Dx); Fecal incontinence due to anorectal disorder; Pelvic floor dysfunction in female; Crohn's disease of both small and large intestine with intestinal obstruction (HCC); Overweight with body mass index (BMI) of 25 to 25.9 in adult 03/02/2025 1:30 PM CDT Therapy [facility] OP Physical Therapy [address] [place] [address] [address] [place] [address] Paresthesia and pain of both upper extremities [...] Active triamcinolone (Kenalog) 0.147 mg/gram topical spray [place] skin around stoma every 3 days with [...] PM CDT): Recommend wearing wrist splints Recommend djfr-alg-irwbdwi pain medication as needed Fecal incontinence due [...] Plan (02/14/2025 12:25 PM CDT): Managed by [facility] Overweight with body mass in [...] estrogen Assessment & Plan (11/18/2023 12:16 PM CAMERA TUNING ENGINEER): Currently the patient is only on Stelara and this has a reassuring safety profile compared to previous treatments and steroids. Her vaginal atrophy could be a substantial contributor to her frequent UTIs and we strongly support her trying vaginal estrogen and getting evaluation from a vulvar specialist. 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 We will offer her a course of desipramine which hopefully will have fewer side effects. She was advised that this may help with the chronic rectal pressure but will likely take several weeks to see the benefit Assessment & Plan (12/15/2023 5:53 PM CAMERA TUNING ENGINEER): The patient certainly has had a lot [...] benefit. Assessment & Plan (10/26/2022 1:13 PM CAMERA TUNING ENGINEER): -2/2 severe refractory crohns proctitis -CRS recs topical lidocaine and PRN oxycodone and IV dilaudid for breakthrough Assessment & Plan (10/25/2022 11:32 PM CAMERA TUNING ENGINEER): -2/2 crohn's dz -prn dilaudid Crohn's disease with complication 12/01/2021 Overview (12/01/2021): Added automatically from request for surgery [id number] Iron deficiency anemia francisco mi to inadequate [...] cutaneous Crohn's. Follows with stoma nurse at [facility]. Using topical tacro While on infliximab [...] team. Assessment & Plan (12/15/2023 5:51 PM CAMERA TUNING ENGINEER): The patient is strongly encouraged to continue [...] well. Assessment & Plan (11/18/2023 12:17 PM CAMERA TUNING ENGINEER): Unfortunately patient is now showing evidence of [...] the accelerated dosing, superior efficacy on recent dujm-xu-gloo study and desirable safety profile may be more effective. In the meantime we would like to restart Rinvoq 30 mg as bridging as the patient's disease and skin have responded much better to this compared to steroids. The patient already has follow-up visits with the ostomy DROP WIRE OPERATOR, Dermatology, Colorectal surgery, and a vulvar specialist. [...] ostomy. Assessment & Plan (10/12/2023 11:47 AM CAMERA TUNING ENGINEER): Patient presents with continued complications from her [...] weeks Assessment & Plan (09/28/2023 9:16 PM CAMERA TUNING ENGINEER): Unfortunately the patient is starting to have [...] despite adequate level. I spoke with her electronic console display operator, who saw her today. In addition to [...] 25 Assessment & Plan (10/26/2022 1:14 PM CAMERA TUNING ENGINEER): Supplements ordered Crohn's proctitis 10/25/2022 02/09/2024 Assessment & Plan (10/26/2022 1:13 PM CAMERA TUNING ENGINEER): -inflammatory vs. 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 -continue prednisone for now -appreciate CRS input; will attempt to obtain CD-ROM with recent CT images from OSH in [place], [place] -GI consult in AM; NPO p MN in case of any plans for EUA/sigmoidoscopy in AM -IVFs, PRN pain and nausea meds overnight Weight loss, unintentional 10/25/2022 0 02/12/2025 Assessment & Plan (10/25/2022 11:33 PM CAMERA TUNING ENGINEER): -2/2 poorly controlled CD -RD consult in [...] on file Legal Sex Female 8:40 PM CAMERA TUNING ENGINEER Gender Identity Female 01/27/2019 10:37 AM CDT Sexual Orientation Straight 10/10/2021 6: 35 AM CAMERA TUNING ENGINEER Last Filed Vital Signs Vital Sign Reading [...] given history of: postmenopausal screening, Osteoporosis screening Tape Maker/Model: Becual A (S/N [id number]) Facility LSC value of 0.022 for the [...] Richardson Guo M.D. MF: MOMO Report ID: [id number] Reading Location: [address] Note Richardson Guo MD - 04/11/2025 EXAM DESCRIPTION: DEXA AXIAL SKELETON BONE DENSITY 1 OR MORE SITES REASON FOR STUDY: 59 y/o year old F with given history of:postmenopausal screening, Osteoporosis screening Tape Maker/Model: Becual A (S/N [id number]) Facility LSC value of 0.022 for the [...] Richardson Guo M.D. MF: MOMO Report ID: [id number] Reading Location: [place] [address] Desirae Mukherjee [facility] DXA PROCEDURES Final Result * Screening [...] no suspicious change. us Desirae Mukherjee DNP [facility] MAMMO PROCEDURE S Final Result * CT Body Outside Reference (03/27/2025 10:32 PM CDT) Impressions [facility] - 03/27/2025 10:32 PM CDT These images are for Reference purposes only and have not been reviewed by [facility] Radiology. There will be no report generated by a [facility] Radiologist. Narrative [facility] - 03/27/2025 10:32 PM CDT EXAMINATION: Images For Reference Purposes Only us Abhijit Quispe MD [facility] CT PROCEDURES Final Resu lt [facility] * COLONOSCOPY (09/04/2022 12:46 PM CDT) Anatomical Region Laterality Modality Other Narrative Procedure Note Martha Chong MD - 09/04/2022 12:46 PM CDT ENDOSCOPY LAB Patient Name: Monica Marie Procedure Date: 09/04/2022 12:46PM Date of : 1965 Admit Type: Outpatient Age: 57 Gender: Female Attending MD: Martha Chong M.D. Room: [facility] ENDOSCOPY ROOM 01 Note Status: Finalized Procedure: [...] The scope was passed under direct vision.The [id number] was introduced through the anusand advanced to [...] business hours - Please call theNurse Coordinator: [phone] After hours, evening, nights, weekends and holidays- Please call the hospital door operator at and ask for the GI fellow compensation/benefits specialist. Attending Participation: I personally performed the entire procedure. Electronically signed by Martha Chong M.D. Martah Chong M.D. 09/04/2022 1:51:49 PM Number of Addenda: 0 Note Initiated On: 09/04/2022 12:46 PM aMrtha Chong MD ENDOSCOPY PROCEDURE S Final Result from Last 3 Months or Most Recently Relevant to Health Maintenance Insurance [facility] [employer] [facility] MEDICARE [facility] CLAIMS [facility] MEDICARE [facility] Advance Directives For more information, please contact: [phone] * Full Code (Latest Code Status on [...] 12:45 PM 06/27/2021 8:28 PM Care Teams Puddler Pile Driving Relationship Specialty Start Date End Date Desirae Mukherjee DNP [address] [place] [facility] [place] [address] PCP - General Family Medicine 02/12/25 Abhijit Quispe MD [address] [facility] [phone] [place] [address] Surgeon Colon and Rectal Surgery 12/01/21 [place] [address] [place] [address] Nurse Practitioner Wound Care 02/27/23 Shruthi Oakley [place] [id number] [place] [address] Consulting Physician Dermatology 02/27/23 Ivy Ugalde MD [address] [address] [place] [address] Referring Physician Gastroenterology 04/22/24 Francisco Wild MD [address] [place] [address] Dermatology 03/27/25
--- OUTSIDE RECORDS SUMMARY | 2025-05-31 14:13 | XMS_ITS | Clinical Summary ---
Author Organization [facility] Medical [facility] 2 Address [address] [place] [address] Care Team Providers Care Welding Production Supervisor Name Role Phone Abhijit Quispe MD Unavailable Robyn Richardson NP Unavailable [phone] Shruthi Oakley MD Unavailable [phone] Ivy Ugalde MD Unavailable [phone] Desirae Mukherjee [facility] Primary Care Provi phan Francisco Wild MD Unavailable [phone] Allergies Active Allergy Reactions Criticality Noted Date [...] Active triamcinolone (Kenalog) 0.147 mg/gram topical spray [place] skin around stoma every 3 days with [...] PM CDT): Recommend wearing wrist splints Recommend oiat-tcp-caezdbw pain medication as needed Fecal incontinence due [...] Plan (02/14/2025 12:25 PM CDT): Managed by [facility] Overweight with body mass in [...] estrogen Assessment & Plan (11/18/2023 12:16 PM OUTPATIENT SCHEDULER): Currently the patient is only on Stelara and this has a reassuring safety profile compared to previous treatments and steroids. Her vaginal atrophy could be a substantial contributor to her frequent UTIs and we strongly support her trying vaginal estrogen and getting evaluation from a vulvar specialist. 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 We will offer her a course of desipramine which hopefully will have fewer side effects. She was advised that this may help with the chronic rectal pressure but will likely take several weeks to see the benefit Assessment & Plan (12/15/2023 5:53 PM OUTPATIENT SCHEDULER): The patient certainly has had a lot [...] benefit. Assessment & Plan (10/26/2022 1:13 PM OUTPATIENT SCHEDULER): -2/2 severe refractory crohns proctitis -CRS recs topical lidocaine and PRN oxycodone and IV dilaudid for breakthrough Assessment & Plan (10/25/2022 11:32 PM OUTPATIENT SCHEDULER): -2/2 crohn's dz -prn dilaudid Crohn's disease with complication 12/01/2021 Overview (12/01/2021): Added automatically from request for surgery [id number] Iron deficiency anemia francisco mi to inadequate [...] initially Pentasa Infliximab 6MP Prednisone tapers 2008 [facility] for stricturing disease (Dr. Braxton) 6-7 in [...] cutaneous Crohn's. Follows with stoma nurse at [facility]. Using topical tacro While on infliximab [...] team. Assessment & Plan (12/15/2023 5:51 PM OUTPATIENT SCHEDULER): The patient is strongly encouraged to continue [...] well. Assessment & Plan (11/18/2023 12:17 PM OUTPATIENT SCHEDULER): Unfortunately patient is now showing evidence of [...] the accelerated dosing, superior efficacy on recent mljx-ec-kbun study and desirable safety profile may be more effective. In the meantime we would like to restart Rinvoq 30 mg as bridging as the patient's disease and skin have responded much better to this compared to steroids. The patient already has follow-up visits with the ostomy CORK COMPOUNDER, Dermatology, Colorectal surgery, and a vulvar specialist. [...] ostomy. Assessment & Plan (10/12/2023 11:47 AM OUTPATIENT SCHEDULER): Patient presents with continued complications from her [...] weeks Assessment & Plan (09/28/2023 9:16 PM OUTPATIENT SCHEDULER): Unfortunately the patient is starting to have [...] despite adequate level. I spoke with her multigraph operator, who saw her today. In addition [...] 25 Assessment & Plan (10/26/2022 1:14 PM OUTPATIENT SCHEDULER): Supplements ordered Crohn's proctitis 10/25/2022 02/09/2024 Assessment & Plan (10/26/2022 1:13 PM OUTPATIENT SCHEDULER): -inflammatory vs. 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 -continue prednisone for now -appreciate CRS input; will attempt to obtain CD-ROM with recent CT images from OSH in [place], [place] -GI consult in AM; NPO p MN in case of any plans for EUA/sigmoidoscopy in AM -IVFs, PRN pain and nausea meds overnight Weight loss, unintentional 10/25/2022 0 02/12/2025 Assessment & Plan (10/25/2022 11:33 PM OUTPATIENT SCHEDULER): -2/2 poorly controlled CD -RD consult in [...] Description 05/31/2025 8:45 AM CDT Office Visit [facility] Care at [address] [address] Lou Villeda PA Eye pain, right (Primary Dx) 05/31/2025 Telephone [facility] [address] [place] [phone] Desirae Mukherjee DNP Symptom Based Call 05/29/2025 8:00 AM CDT Therapy [facility] OP Physical Therapy [address] [place] [address] [address] [place] [address] Ni Garces, PT Fecal incontinence due to anorectal disorder (Primary Dx); Pelvic floor dysfunction in female 05/22/2025 8:00 AM CDT Therapy [facility] OP Physical Therapy [address] [place] [address] [address] [place] [address] Ni Garces, PT Fecal incontinence due to anorectal disorder (Primary Dx); Pelvic floor dysfunction in female 05/17/2025 10:30 AM CDT Therapy [facility] OP Physical Therapy [address] [place] [address] [address] [place] [address] Ni Garces, PT Fecal incontinence due to anorectal disorder (Primary Dx); Pelvic floor dysfunction in female 04/17/2025 3:15 PM CDT Therapy [facility] OP Physical Therapy [address] [place] [address] [address] [place] [address] Ni Garces, PT Fecal incontinence due to anorectal disorder; Pelvic floor dysfunction in female 04/17/2025 Plan of Care Documentation [facility] OP Physical Therapy [address] [place] [address] 04/15/2025 Results Follow-Up [facility] [address] [place] [address] Desirae Mukherjee DNP Dexa Axial Skeleton Bone Density 1 or 2 Site 04/15/2025 Results Follow-Up [facility] [address] [place] [address] Desirae Mukherjee DNP Screening Mammogram Bilateral W Roney 04/10/2025 10:25 AM CDT - 04/10/2025 11:59 PM CDT Hospital Encounter [facility] Medical Office [facility] [address] [address] Postmenopausal; Encounter for screening Discharge Disposition: Discharge to home or self care 04/10/2025 10:15 AM CDT - 04/10/2025 11:59 PM CDT Hospital Encounter [facility] Medical Office [address] [address] Mass of right breast, unspecified quadrant; Abnormal mammogram of right breast; Encounter for screening mammogram for malignant neoplasm of breast Discharge Disposition: Discharge to home or self care 03/27/2025 10:32 PM CDT - 03/27/2025 11:59 PM CDT Hospital Encounter [facility] [address] [place] [address] Discharge Disposition: Discharge to home or self care 03/26/2025 2:15 PM CDT Office Visit [facility] [address] [place] [address] Abhijit Quispe MD Crohn's disease of both small and large intestine with intestinal obstruction (HCC) (Primary Dx); Colostomy care (HCC); Rectal pain; Pyoderma 03/19/2025 Telephone [facility] Medicine [address] [place] [address] [address] [place] [address] Desirae Mukherjee DNP Medical Question/Miscellane ous 03/15/2025 12:30 PM CDT Office Visit [facility] Family Medicine [address] [place] [address] [address] [place] [address] Desirae Mukherjee DNP Bilateral carpal tunnel syndrome (Primary Dx); Fecal incontinence due to anorectal disorder; Pelvic floor dysfunction in female; Crohn's disease of both small and large intestine with intestinal obstruction (HCC); Overweight with body mass index (BMI) of 25 to 25.9 in adult 03/02/2025 1:30 PM CDT Therapy [facility] OP Physical Therapy [address] [place] [address] [address] [place] [address] Paresthesia and pain of both upper extremities [...] on file Legal Sex Female 8:40 PM OUTPATIENT SCHEDULER Gender Identity Female 01/27/2019 10:37 AM CDT Sexual Orientation Straight 10/10/2021 6: 35 AM OUTPATIENT SCHEDULER Obstetrics History Para Term AB IAB SAB [...] given history of: postmenopausal screening, Osteoporosis screening Machinist [employer]/Model: Transfercar A (S/N [id number]) Facility LSC value of 0.022 for the [...] Richardson Guo M.D. MF: MOMO Report ID: [id number] Reading Location: [id number] [facility] Note Richardson Guo MD - 04/11/2025 EXAM DESCRIPTION: DEXA AXIAL SKELETON BONE DENSITY 1 OR MORE SITES REASON FOR STUDY: 59 y/o year old F with given history of:postmenopausal screening, Osteoporosis screening Mach[employer]ist Tool [employer]/Model: Hologic Horizon A (S/N [id number]) Facility LSC value of 0.022 for the [...] Richardson Guo M.D. MF: MOMO Report ID: [id number] Reading Location: [place] [address] Desirae Mukherjee DNP IMG DXA PROCEDURES Final [...] only and have not been reviewed by [facility] Radiology. There will be no report generated by a [facility] Radiologist. Narrative RAD_P[facility] - 03/27/2025 10:32 [...] Female Attending MD: Martha Chong M.D. Room: [facility] ENDOSCOPY ROOM 01 Note Status: Finalized Procedure: [...] The scope was passed under direct vision.The [id number] was introduced through the anusand advanced to [...] During normal business hours - [facility] Coordinator: [phone] After hours, evening, nights, weekends and holidays- Please call the hospital acds block 1 operator at and ask for the GI fellow clinical rehabilitation coordinator. Attending Participation: I personally performed the entire procedure. Electronically signed by Martha Chong M.D. Martha Chong M.D. 09/04/2022 1:51:49 PM Number of Addenda: 0 Note Initiated On: 09/04/2022 12:46 PM Martha Chong MD ENDOSCOPY PROCEDURE S Final Result from Last 3 Months or Most Recently Relevant to Health Maintenance Insurance [employer] MEDICARE [facility] CLAIMS [facility] Address: [address] [place] [address] [employer] MEDICARE [facility] Advance Directives For more information, please contact: [phone] * Full Code (Latest Code Status on [...] 12:45 PM 06/27/2021 8:28 PM Care Teams Welding Production Supervisor Relationship Specialty Start Date End Date Desirae Mukherjee DNP [address] [facility] [address] [address] PCP - General Family Medicine 02/12/25 Abhijit Quispe MD [phone] [place] [address] Surgeon Colon and Rectal Surgery 12/01/21 [place] [address] [place] [address] Nurse Practitioner Wound Care 02/27/23 [place] [address] [place] [address] Consulting Physician Dermatology 02/27/23 Ivy Ugalde MD [address] [facility] [address] [place] [address] Referring Physician Gastroenterology 04/22/24 Francisco Wild MD [address] [place] [address] Dermatology 03/27/25
--- OUTSIDE RECORDS SUMMARY | 2025-05-31 14:13 | XMS_ITS | Clinical Summary ---
Author Organization [facility] Address [address] [place] [address] Care Team Providers Care Trim Stencil Maker Name Role Phone Joaquim Ferguson MD Primary Care Provider Angi Chew MD Unavailable [phone] Allergies No known active allergies Medications adalimumab 40 MG/0.4ML prefilled syringe kit Inject 0.4 mLs (40 mg total) into the skin every 14 (fourteen) days. Active fluconazole 200 MG tablet Take 1 tablet (200 mg total) by mouth daily. 04/15/20 21 Active Lidocaine-[place] sandy, Perianal, 3-0.5 % Cream 01/03/20 21 [...] g 11 04/19/20 24 Active nystatin (MYCOSTATIN) 046846 UNIT/ML suspensionIndic ations:Oral candidiasis Take 5 mLs [...] of abdominal wall 04/09/2024 Status post colostomy ([facility]) 04/09/20 24 Chronic fatigue and immune dysfunction syndrome ([facility]) 12/26/2023 Overview (01/11/2024): Chronic fatigue in an immunocompromised patient. Currently off biologics and exploring immunomodulatory medications. No chronic fevers, chills, normal appetite. But does report night sweats. Also mentions URI symptoms. PLAN - concern for infection is low, but will evaluate for indolent infectious processes that present with fatigue and night sweats. Pyoderma gangrenosum ([facility]) 3 Overview (01/11/2024): Continue wound care and gentle cleansing as recommended by Derm and ACCS- wound care Last Assessment & Plan: The patient is strongly encouraged to continue her follow-up with Robyn and dermatology Thrush of mouth and esophagus ([facility]) 11/12/2022 Severe malnutrition ([facility]) 10/26/2022 Overview (11/12/2022): Last Assessment & Plan: Supplements ordered Crohn's disease with complication ([facility] HHS/ CC) 12/01/2021 Overview (11/12/2022): Added automatically from request for surgery [id number] COVID-19 virus infection 11/14/2021 Acute otitis externa [...] l and large intestine with intestinal obstruction ([facility]) 06/03/2018 Influenza B 12/22/2017 Allergic reaction to contrast material 6 Pyelonephritis 10/28/2015 OAG (open angle glaucoma) suspect, low risk, vernon ateral 08/12/2015 Low back pain 05/29/2015 Crohn's disease of both smal l and large intestine ([facility]) 10/12/2014 Menopausal symptoms 08/23/2014 Depression 08/22/2014 Insomnia [...] - 05/04/2025 11:59 PM CDT Hospital Encounter [facility] [place] [place] [address] Ame Callejas, HAILEY Discharge Disposition: Home or Self Care (Routine Discharge) 05/04/2025 Travel 04/19/2025 3:13 PM CDT - 04/19/2025 11:59 PM CDT Hospital Encounter [facility] [place] [place] [address] Ame Callejas, HAILEY Discharge Disposition: Home or Self Care (Routine Discharge) 04/19/2025 Travel 04/12/2025 11:30 AM CDT - 04/12/2025 11:59 PM CDT Hospital Encounter [facility] [place] [address] Ame Callejas, HAILEY Discharge Disposition: Home or Self Care (Routine Discharge) 04/12/2025 Travel 04/11/2025 Scan meXBT / [employer] SRV[employer] Scanned, [facility] 04/05/2025 1:57 PM CDT - 04/05/2025 11:59 PM CDT Hospital Encounter [facility] [place] [address] Ame Callejas, SPLASH LINE OPERATOR Discharge Disposition: Home or Self Care (Routine Discharge) 04/05/2025 Travel 03/26/2025 Scan [employer] / [employer] Scanned, Doc [facility] from Last [...] Sex Assigned at Female 01/11/2025 2:51 PM INFECTION CONTROL RN Legal Sex Female 7:01 PM CDT Gender [...] [facility] [place] [place] [address] Ame Callejas, HAILEY [address] [place], [place] [id number] Health Maintenance Due Date Last Done Comments [...] Vaccine: 50+ Years Completed 12/20/2023 PHQ-2 (Physician [place]) Completed 12/01/2024 Meningococcal B Vaccine Aged Out [...] HEPATITIS C ANTIBODY Routine 10/02/2019 9:05 AM INFECTION CONTROL RN Need for hepatitis C screening test from Last 3 Months or Most Recently Relevant to Health Maintenance Results * COLONOSCOPY GENERIC (SCAN ORDER) (05/15/2025) 05/15/2025 us [facility] Scanned SCANNING Final Resu lt * HEPATITIS C ANTIBODY (10/02/2019 9:05 AM INFECTION CONTROL RN) HEPATITIS C AB NON-REACTI VE NON-REACTI VE 10/02/2019 2:40 PM INFECTION CONTROL RN [facility] 10/02/2019 9:05 AM INFECTION CONTROL RN Joaquim Ferguson MD LABORATORY Final R esult [facility] [address] [place] [address], from Last 3 Months or Most Recently Relevant to Health Maintenance Insurance MEDICARE [facility] Advance Directives * Full Code (Latest Code Status on File) Date Activated Date Inactivated Comments 04/05/2024 9:47 PM 01/15/2025 4:35 PM Care Teams Trim Stencil Maker Relationship Specialty Start Date End Date Joaquim Ferguson MD [address] [place] [address] PCP - General FAMILY PRACTICE 12/20/17 Angi Chew MD [address] [place] [address] [employer] Officer INTERVENTIONAL CARDIOLOGY 04/11/18
--- OUTSIDE RECORDS SUMMARY | 2025-05-31 14:13 | XMS_ITS | Encounter Summary ---
Author Organization [facility] Address [facility] [place] [address] Care Team Providers Care Director Regulatory Affairs Name Role Phone Cynthia Oakley MD Primary Care Provider [phone] Cynthia Oakley MD Primary Care Provider [phone] Kenneth Thayer MD Primary Care Provider Kenneth Thayer MD Primary Care Provider Kenneth Thayer MD Primary Care Provider Kenneth Thayer MD Primary Care Provider [phone] Kenneth Thayer MD Primary Care Provider Joaquim Ferguson MD Primary Care Provider Angi Chew MD Unavailable [phone] Encounter Details Date Type Department Care Team (Latest Contact Info) Description 09/04/2016 Abstract [facility] Madina Marin MD Social History Tobacco Use Types Packs/Day Years Used Date Smoking Tobacco: Never Assessed Comments Unknown Sex and Gender Information Value Date Recorded Sex Assigned at Female 01/11/2025 2:51 PM NEUROSCIENTIST Legal Sex Female 7:01 PM CDT Gender Identity Not on file Sexual Orientation Not on file documented as of this encounter Plan of Treatment Upcoming Encounters Date Type Department Care Team (Late st Contact Info) Description 06/04/2025 9:00 AM CDT Appointment [facility] [place] [address] Ame Callejas, DIRECTOR FUNERAL [address] [place], [place] [id number] documented as of this encounter Visit Diagnoses Not on filedocumented in this encounter Additional Health Concerns Infection Onset Date Last Indicated Resolved Time COVID-19 Rule Out 11/14/2021 11/14/2021 11/14/2021 10:58 AM NEUROSCIENTIST COVID-19 Rule Out 10/29/2023 10/29/2023 10/29/2023 1:20 PM NEUROSCIENTIST COVID-19 Rule Out 01/03/2024 01/03/2024 01/03/2024 4:13 PM NEUROSCIENTIST COVID-19 Rule Out 04/19/2024 04/19/2024 04/19/2024 10:24 AM CDT documented as of this encounter Care Teams Director Regulatory Affairs Relationship Specialty Start Date End Date Cynthia Oakley MD PCP - General 04/19/17 12/19/17 Cynthia Oakley MD PCP - General 04/02/17 04/18/17 Kenneth Thayer MD [address] [place], [place] [address] PCP - General 02/22/17 04/01/17 Kenneth Thayer MD [address] [place], [place] [id number] PCP - General 12/18/16 02/21/17 Kenneth Thayer MD [address] [place] [address] PCP - General 12/11/16 12/17/16 Kenneth Thayer MD [address] [place] [address] PCP - General 12/04/16 12/10/16 Kenneth Thayer MD [address] [place] [address] PCP - General 08/17/16 12/03/16 Joaquim Ferguson MD [address] [place] [address] PCP - General FAMILY PRACTICE 12/20/17 Angi Chew MD [address] [place] [address] [employer] Consultant INTERVENTIONAL CARDIOLOGY 04/11/18 documented as of this encounter
--- OUTSIDE RECORDS SUMMARY | 2025-05-31 14:13 | XMS_ITS | Encounter Summary ---
Author Organization [facility] Address [address] [place] [address] Care Team Providers Care Optical Fabricator Name Role Phone Cynthia Oakley MD Primary Care Provider [phone] Cynthia Oakley MD Primary Care Provider [phone] Kenneth Thayer MD Primary Care Provider [phone] Kenneth Thayer MD Primary Care Provider [phone] Kenneth Thayer MD Primary Care Provider Kenneth Thayer MD Primary Care Provider Kenneth Thayer MD Primary Care Provider [phone] Kenneth Thayer MD Primary Care Provider Kenneth Thayer MD Primary Care Provider Kenneth Thayer MD Primary Care Provider Kenneth Thayer MD Primary Care Provider Joaquim Ferguson MD Primary Care Provider Angi Chew MD Unavailable [phone] Encounter Details Date Type Department Care Team (Latest Contact Info) Description 12/17/2015 Abstract [facility] Madina Marin MD Social History Tobacco Use Types Packs/Day Years Used Date Smoking Tobacco: Never Assessed Comments Unknown Sex and Gender Information Value Date Recorded Sex Assigned at Female 01/11/2025 2:51 PM DRY CELL TESTER Legal Sex Female 7:01 PM CDT Gender Identity Not on file Sexual Orientation Not on file documented as of this encounter Plan of Treatment Upcoming Encounters Date Type Department Care Team (Late st Contact Info) Description 06/04/2025 9:00 AM CDT Appointment [facility] [place] [address] Ame Callejas, [address] [place] [address] documented as of this encounter Visit Diagnoses Not on filedocumented in this encounter Additional Health Concerns Infection Onset Date Last Indicated Resolved Time COVID-19 Rule Out 11/14/2021 11/14/2021 11/14/2021 10:58 AM DRY CELL TESTER COVID-19 Rule Out 10/29/2023 10/29/2023 10/29/2023 1:20 PM DRY CELL TESTER COVID-19 Rule Out 01/03/2024 01/03/2024 01/03/2024 4:13 PM DRY CELL TESTER COVID-19 Rule Out 04/19/2024 04/19/2024 04/19/2024 10:24 AM CDT documented as of this encounter Care Teams Optical Fabricator Relationship Specialty Start Date End Date Cynthia Oakley MD PCP - General 04/19/17 12/19/17 Cynthia Oakley MD PCP - General 04/02/17 04/18/17 Kenneth Thayer MD [address] [place] [address] PCP - General 02/22/17 04/01/17 Kenneth Thayer MD [address] [place] [address] PCP - General 12/18/16 02/21/17 Kenneth Thayer MD [address] [place], [place] [address] PCP - General 12/11/16 12/17/16 Kenneth Thayer MD [address] [place], [place] [address] PCP - General 12/04/16 12/10/16 Kenneth Thayer MD [address] [place], [place] [address] PCP - General 08/17/16 12/03/16 Kenneth Thayer MD [address] [place], [place] [address] PCP - General 03/20/16 08/16/16 Kenneth Thayer MD [address] [place], [place] [address] PCP - General 01/06/16 03/19/16 Kenneth Thayer MD [address] [place], [place] [address] PCP - General 01/01/16 01/05/16 Kenneth Thayer MD [address] [place] [address] PCP - General 11/04/15 12/31/15 Joaquim Ferguson MD [address] [place] [address] PCP - General FAMILY PRACTICE 12/20/17 Angi Chew MD [address] [place] [address] Iris Hearing Aid Specialist INTERVENTIONAL CARDIOLOGY 04/11/18 documented as of this encounter
--- OUTSIDE RECORDS SUMMARY | 2025-05-31 14:13 | XMS_ITS | Encounter Summary ---
Author Organization [facility] Address [address] [place] [address] Care Team Providers Care Medical Technologist Microbiology Name Role Phone Abhijit Quispe MD Unavailable [phone] Robyn Richardson NP Unavailable [phone] Shruthi Oakley MD Unavailable [phone] Ivy Ugalde MD Unavailable [phone] Desirae Mukherjee [facility] Primary Care Provi phan Francisco Wild MD Unavailable [phone] Encounter Details Date Type Department Care Team (Late st Contact Info) Description 04/15/2025 Results Follow-Up [facility] Family Medicine [address] [facility] [address] [place] [address] Desirae Mukherjee, [address] [place] [address] Dexa Axial Skeleton Bone Density [...] on file Legal Sex Female 8:40 PM STENCIL MAKER Gender Identity Female 01/27/2019 10:37 AM CDT Sexual Orientation Straight 10/10/2021 6: 35 AM STENCIL MAKER documented as of this encounter Plan of Treatment Not on file documented as of this encounter Visit Diagnoses Not on filedocumented in this encounter Care Teams Medical Technologist Microbiology Relationship Specialty Start Date End Date Desirae Mukherjee DNP [address] [place] [address] PCP - General Family Medicine 02/12/25 Abhijit Quispe MD [phone] [place] [address] Surgeon Colon and Rectal Surgery 12/01/21 [place] [address] [place] [address] Nurse Practitioner Wound Care 02/27/23 [place] [address] [place] [address] Consulting Physician Dermatology 02/27/23 Ivy Ugalde MD [address] [facility] [address] [place] [address] Referring Physician Gastroenterology 04/22/24 Francisco Wild MD [address] [place] [address] Dermatology 03/27/25 documented as of this encounter
--- OUTSIDE RECORDS SUMMARY | 2025-05-31 14:14 | XMS_ITS | Encounter Summary ---
Author Organization [facility] Address [facility] [place] [address] Care Team Providers Care Clinical Courier Name Role Phone Cynthia Oakley MD Primary Care Provider [phone] Cynthia Oakley MD Primary Care Provider [phone] Kenneth Thayer MD Primary Care Provider [phone] Kenneth Thayer MD Primary Care Provider [phone] Kenneth Thayer MD Primary Care Provider [phone] Kenneth Thayer MD Primary Care Provider [phone] Kenneth Thayer MD Primary Care Provider [phone] Kenneth Thayer MD Primary Care Provider [phone] [...] Primary Care Provider Angi Chew MD Unavailable [phone] Encounter Details Date Type Department Care Team (Latest Contact Info) Description 08/15/2014 Abstract [facility] Madina Marin MD Social History Tobacco Use Types Packs/Day Years Used Date Smoking Tobacco: Never Assessed Comments Unknown Sex and Gender Information Value Date Recorded Sex Assigned at Female 01/11/2025 2:51 PM MOTORIZED SQUAD CAPTAIN Legal Sex Female 7:01 PM CDT Gender Identity Not on file Sexual Orientation Not on file documented as of this encounter Plan of Treatment Upcoming Encounters Date Type Department Care Team (Late st Contact Info) Description 06/04/2025 9:00 AM CDT Appointment [facility] [place] [address] Ame Callejas, [address] [place] [address] documented as of this encounter Visit Diagnoses Not on filedocumented in this encounter Additional Health Concerns Infection Onset Date Last Indicated Resolved Time COVID-19 Rule Out 11/14/2021 11/14/2021 11/14/2021 10:58 AM MOTORIZED SQUAD CAPTAIN COVID-19 Rule Out 10/29/2023 10/29/2023 10/29/2023 1:20 PM MOTORIZED SQUAD CAPTAIN COVID-19 Rule Out 01/03/2024 01/03/2024 01/03/2024 4:13 PM MOTORIZED SQUAD CAPTAIN COVID-19 Rule Out 04/19/2024 04/19/2024 04/19/2024 10:24 AM CDT documented as of this encounter Care Teams Clinical Courier Relationship Specialty Start Date End Date Cynthia Oakley MD PCP - General 04/19/17 12/19/17 Cynthia Oakley MD PCP - General 04/02/17 04/18/17 Kenneth Thayer MD [address] [place], [place] [address] PCP - General 02/22/17 04/01/17 Kenneth Thayer MD [address] [place], [place] [address] PCP - General 12/18/16 02/21/17 Kenneth Thayer MD [address] [place], [place] [address] PCP - General 12/11/16 12/17/16 Kenneth Thayer MD [address] [place] [address] PCP - General 12/04/16 12/10/16 Kenneth Thayer MD [address] [place], [place] [address] PCP - General 08/17/16 12/03/16 Kenneth Thayer MD [address] [place], [place] [address] PCP - General 03/20/16 08/16/16 Kenneth Thayer MD [address] [place], [place] [address] PCP - General 01/06/16 03/19/16 Kenneth Thayer MD [address] [place], [place] [address] PCP - General 01/01/16 01/05/16 Kenneth Thayer MD [address] [place], [place] [address] PCP - General 11/04/15 12/31/15 Kenneth Thayer MD [address] [place], [place] [address] PCP - General 10/19/15 11/03/15 Kenneth Thayer MD [address] [place] [address] PCP - General 10/18/15 10/18/15 Kenneth Thayer MD [address] [place], [place] [address] PCP - General 10/07/15 10/17/15 Kenneth Thayer MD [address] [place], [place] [address] PCP - General 09/09/15 10/06/15 Kenneth Thayer MD [address] [place], [place] [address] PCP - General 05/29/15 09/08/15 Kenneth Thayer MD [address] [place], [place] [address] PCP - General 05/15/15 05/28/15 Kenneth Thayer MD [address] [place], [place] [address] PCP - General 02/27/15 05/14/15 Kenneth Thayer MD [address] [place], [place] [address] PCP - General 02/16/15 02/26/15 Kenneth Thayer MD [address] [place] [address] PCP - General 01/04/15 02/15/15 Kenneth Thayer MD [address] [place], [place] [address] PCP - General 11/30/14 01/03/15 Kenneth Thayer MD [address] [place], [place] [address] PCP - General 10/11/14 11/29/14 Kenneth Thayer MD [address] [place], [place] [address] PCP - General 09/07/14 10/10/14 Kenneth Thayer MD [address] [place], [place] [address] PCP - General 08/24/14 09/06/14 Kenneth Thayer MD [address] [place], [place] [address] PCP - General 08/22/14 08/23/14 Kenneth Thayer MD [address] [place], [place] [address] PCP - General 08/17/14 08/21/14 Kenneth Thayer MD [address] [place] [address] PCP - General 06/20/14 08/16/14 Joaquim Ferguson MD [address] [facility] [address] [place] [address] PCP - General FAMILY PRACTICE 12/20/17 Angi Chew MD [address] [facility] [address] [place] [address] Iris Labor Economics Teacher INTERVENTIONAL CARDIOLOGY 04/11/18 documented as of this encounter
--- OUTSIDE RECORDS SUMMARY | 2025-05-31 14:14 | XMS_ITS | Encounter Summary ---
Author Organization [facility] Address [address] [place] [address] Care Team Providers Care Handy Worker Name Role Phone Joaquim Ferguson MD Primary [...] on file Legal Sex Female 6:59 AM PRICING ASSOCIATE Gender Identity Not on file Sexual Orientation Not on file documented as of this encounter Plan of Treatment Upcoming Encounters Date Type Department Care Team (Late st Contact Info) Description 08/08/2025 1:00 PM CDT Office Visit [facility] Gastroenterology [facility] [address] [facility] [address] [place] [address] [place] [address] [facility] [address] [place] [address] documented as of this encounter Visit Diagnoses Not on filedocumented in this encounter Additional Health Concerns Assessment Noted Time PHQ-9 Depression Total Score: 3 03/27/20 24 12:00 PM CDT documented as of this encounter Care Teams Handy Worker Relationship Specialty Start Date End Date Joaquim Ferguson MD [address] [facility] [address] [place] [address] PCP - General Family Practice 01/11/23 documented as of this encounter
--- OUTSIDE RECORDS SUMMARY | 2025-05-31 14:14 | XMS_ITS | Encounter Summary ---
Author Organization [facility] Address [address] [place] [address] Care Team Providers Care Cut Out Press Operator Name Role Phone Joaquim Ferguson MD Primary Care Provider Encounter Details Date Type Department Care Team (Late Contact Info) Description 2025 Results Follow-Up [facility] Gastroenterology [facility] [address] [facility] [address] [place] [address] [place] [address] [facility] [address], [place] [address] PATHOLOGY Social History Tobacco Use Types Packs/Day Years Used Date Smoking Tobacco: Never Smokeless Tobacco: Never Alcohol Use Standard Drinks/Week Comments Never 0 (1 standard drink = 0.6 oz pur e alcohol) Comments No Sex and Gender Information Value Date Recorded Sex Assigned at Not on file Legal Sex Female 6:59 AM LINUX SYSTEMS ANALYST Gender Identity Not on file Sexual Orientation [...] you have any questions. Ivy Ugalde MD [facility] Gastroenterology documented in this encounter Plan of Treatment Upcoming Encounters Date Type Department Care Team (Late Contact Info) Description 08/08/2025 1:00 PM CDT Office Visit [facility] Gastroenterology [facility] [address] [facility] [address] [place] [address] [place] [address] [facility] [address] [place] [id number] documented as of this encounter Visit Diagnoses Not on filedocumented in this encounter Additional Health Concerns Assessment Noted Time PHQ-9 Depression Total Score: 3 03/27/20 24 12:00 PM CDT documented as of this encounter Care Teams Cut Out Press Operator Relationship Specialty Start Date End Date Joaquim Ferguson MD [address] [facility] [address] [place] [address] PCP - General Family Practice 01/11/23 documented as of this encounter
--- OUTSIDE RECORDS SUMMARY | 2025-05-31 14:14 | XMS_ITS | Encounter Summary ---
Author Organization [facility] Address [facility] [place] [address] Care Team Providers Care Russian Rubber Name Role Phone Cynthia Oakley MD Primary Care Provider [phone] Cynthia Oakley MD Primary Care Provider [phone] Kenneth Thayer MD Primary Care Provider [phone] Kenneth Thayer MD Primary Care Provider [phone] Kenneth Thayer MD Primary Care Provider [phone] Kenneth Thayer MD Primary Care Provider [phone] Kenneth Thayer MD Primary Care Provider +[phone] [...] Primary Care Provider Angi Chew MD Unavailable [phone] Encounter Details Date Type Department Care Team (Latest Contact Info) Description 06/12/2015 Abstract [facility] Madina Marin MD Social History Tobacco Use Types Packs/Day Years Used Date Smoking Tobacco: Never Assessed Comments Unknown Sex and Gender Information Value Date Recorded Sex Assigned at Female 01/11/2025 2:51 PM PHOTOLITH OPERATOR Legal Sex Female 7:01 PM CDT Gender Identity Not on file Sexual Orientation Not on file documented as of this encounter Plan of Treatment Upcoming Encounters Date Type Department Care Team (Late st Contact Info) Description 06/04/2025 9:00 AM CDT Appointment [facility] [place] [address] Ame Callejas, [address] [place] [address] documented as of this encounter Visit Diagnoses Not on filedocumented in this encounter Additional Health Concerns Infection Onset Date Last Indicated Resolved Time COVID-19 Rule Out 11/14/2021 11/14/2021 11/14/2021 10:58 AM PHOTOLITH OPERATOR COVID-19 Rule Out 10/29/2023 10/29/2023 10/29/2023 1:20 PM PHOTOLITH OPERATOR COVID-19 Rule Out 01/03/2024 01/03/2024 01/03/2024 4:13 PM PHOTOLITH OPERATOR COVID-19 Rule Out 04/19/2024 04/19/2024 04/19/2024 10:24 AM CDT documented as of this encounter Care Teams Russian Rubber Relationship Specialty Start Date End Date Cynthia Oakley MD PCP - General 04/19/17 12/19/17 Cynthia Oakley MD PCP - General 04/02/17 04/18/17 Kenneth Thayer MD [address] [place] [address] PCP - General 02/22/17 04/01/17 Kenneth Thayer MD [address] [place] [address] PCP - General 12/18/16 02/21/17 Kenneth Thayer MD [address] [place], [place] [address] PCP - General 12/11/16 12/17/16 Kenneth Thayer MD [address] [place], [place] [address] PCP - General 12/04/16 12/10/16 Kenneth Thayer MD [address] [place], [place] [address] PCP - General 08/17/16 12/03/16 Kenneth Thayer MD [address] [place], [place] [address] PCP - General 03/20/16 08/16/16 Kenneth Thayer MD [address] [place], [place] [address] PCP - General 01/06/16 03/19/16 Kenneth Thayer MD [address] [place] [address] PCP - General 01/01/16 01/05/16 Kenneth Thayer MD [address] [place] [address] PCP - General 11/04/15 12/31/15 Kenneth Thayer MD [address] [place], [place] [address] PCP - General 10/19/15 11/03/15 Kenneth Thayer MD [address] [place], [place] [address] PCP - General 10/18/15 10/18/15 Kenneth Thayer MD [address] [place], [place] [address] PCP - General 10/07/15 10/17/15 Kenneth Thayer MD [address] [place], [place] [address] PCP - General 09/09/15 10/06/15 Kenneth Thayer MD [address] [place], [place] [address] PCP - General 05/29/15 09/08/15 Joaquim Ferguson MD [address] [place] [address] PCP - General FAMILY PRACTICE 12/20/17 Angi Chew MD [address] [place] [address] [place] Accounts Receivable Executive INTERVENTIONAL CARDIOLOGY 04/11/18 documented as of this encounter
--- OUTSIDE RECORDS SUMMARY | 2025-05-31 14:14 | XMS_ITS | Encounter Summary ---
Author Organization [facility] Address [address] [place] [address] Phone Care Team Providers Care Electronic Masking System Operator Name Role Phone Joaquim Ferguson MD Primary Care Provider [phone] Abhijit Quispe MD Unavailable [phone] Martha Chong MD Unavailable [phone] Robyn Richardson NP Unavailable [phone] Shruthi Oakley MD Unavailable [phone] Ryaln March MD Unavailable [phone] Ivy Ugalde MD Unavailable [phone] Desirae Mukherjee [facility] Primary Care Provi phan Francisco Wild MD Unavailable [phone] Encounter Details Date Type Department Care Team [...] on file Legal Sex Female 8:40 PM POINT OF SALE ASSOCIATE Gender Identity Female 01/27/2019 10:37 AM CDT Sexual Orientation Straight 10/10/2021 6: 35 AM POINT OF SALE ASSOCIATE documented as of this encounter Plan of Treatment Not on file documented as of this encounter Procedures Procedure Name Priority Date/Time Associated Diagnosis Comments SCAN - LABS 03/31/2022 documented in this encounter Results * SCAN - LABS (03/31/2022) Provider Scanning Final Result documented in this encounter Visit Diagnoses Not on filedocumented in this encounter Care Teams Electronic Masking System Operator Relationship Specialty Start Date End Date Joaquim Ferguson MD [address] [address] PCP - General 02/14/18 02/11/25 Desirae Mukherjee DNP [address] [address] PCP - General Family Medicine 02/12/25 Abhijit Quispe MD [address] [facility] [phone] [place] [address] Surgeon Colon and Rectal Surgery 12/01/21 Martha Chong MD [address] [facility] [phone] [place] [address] Gastroenterology 12/07/21 12/15/23 Robyn [place] [address] [place] [address] Nurse Practitioner Wound Care 02/27/23 [place] [address] [facility] [place] [address] Consulting Physician Dermatology 02/27/23 Rylan March MD [address] [facility] [address] [facility] [place] [address] Consulting Physician Gastroenterology 12/16/23 4 Ivy Ugalde MD [address] [facility] [address] [place] [address] Referring Physician Gastroenterology 04/22/24 Francisco Wild MD [address] [facility] [place] [address] Dermatology 03/27/25 documented as of this encounter
--- OUTSIDE RECORDS SUMMARY | 2025-05-31 14:14 | XMS_ITS | Encounter Summary ---
Author Organization [facility] Address [address] [place] [address] Care Team Providers Care Manager Assessment Name Role Phone Joaquim Ferguson MD Primary Care Provider Encounter Details Date Type Department Care Team ( Contact Info) Description 04/12/2025 Results Follow-Up [facility] Gastroenterology [place] [address] [facility] [address] [place] [address] Fadia Herrmann ANP [address] [facility] [address] [place] [address] CBC WITH DIFFERENTIAL, C-REACTIVE PROTEIN Social History Tobacco Use Types Packs/Day Years Used Date Smoking Tobacco: Never Smokeless Tobacco: Never Alcohol Use Standard Drinks/Week Comments Never 0 (1 standard drink = 0.6 oz pur e alcohol) Comments No Sex and Gender Information Value Date Recorded Sex Assigned at Not on file Legal Sex Female 6:59 AM MANAGER ASSESSMENT Gender Identity Not on file Sexual Orientation [...] Description 08/08/2025 1:00 PM CDT Office Visit [facility] Gastroenterology [facility] [address] [facility] [address] [place] [address] [place] [address] [facility] [address] [place] [address] documented as of this encounter Visit Diagnoses Not on filedocumented in this encounter Additional Health Concerns Assessment Noted Time PHQ-9 Depression Total Score: 3 03/27/20 24 12:00 PM CDT documented as of this encounter Care Teams Manager Assessment Relationship Specialty Start Date End Date Joaquim Ferguson MD [address] [facility] [address] [place] [address] PCP - General Family Practice 01/11/23 documented as of this encounter
--- OUTSIDE RECORDS SUMMARY | 2025-05-31 14:14 | XMS_ITS | Clinical Summary ---
Author Organization [facility] Care Team Providers Care Cost Manager Name Role Phone Unavailable Primary Care Provider [...]
--- OUTSIDE RECORDS SUMMARY | 2025-05-31 14:14 | XMS_ITS | Clinical Summary ---
Author Organization [address] Address [address] [place] [address] Care Team Providers Care Statistician Name Role Phone Joaquim Ferguson MD Primary [...] ABSTRACTION Provider, Abstract 2025 Results Follow-Up [facility] [place] [address] [facility] [address] [place] [address] Ivy Ugalde MD PATHOLOGY 05/15/2025 9:32 AM CDT Anesthesia Event [address] [place] [address] Nalini Blanco MD 05/15/2025 9:30 AM CDT - 05/15/2025 10:00 AM CDT Surgery [address] 1 [place] [address] Ivy Ugalde MD COLONOSCOPY 05/15/2025 8:27 AM CDT - 05/15/2025 10:43 AM CDT Hospital Encounter [address] 1 [place] [address] Ivy Ugalde MD Crohn's disease of both small and large intestine with fistula (CMS/HCC) Discharge Disposition: Home or Self Care 05/15/2025 [facility] [place] [address] [facility] [address] [place] [address] Doretha Mosquera RN Crohn's disease of both small and large intestine with fistula (CMS/HCC) 05/15/2025 Orders Only [facility] [place] [address] [facility] [address] [place] [address] Ivy Ugalde MD Crohn's disease of both small and large intestine with fistula (CMS/HCC) 05/01/2025 External Device Data STL ABSTRACTION Provider, Abstract 04/27/2025 Refill [facility] [place] [address] [facility] [address] [place] [address] Ivy Ugalde MD Crohn's disease of both small and large intestine with fistula (CMS/HCC) 04/25/2025 External Device Data STL ABSTRACTION Provider, Abstract 04/12/2025 Results Follow-Up [facility] [place] [address] [facility] [address] [place] [address] Fadia Herrmann, KATELYN CBC WITH DIFFERENTIAL, C-REACTIVE PROTEIN 04/11/2025 10:00 AM CDT Office Visit [facility] [place] [address] [facility] [address] [facility] [place] [address] Fadia Herrmann, KATELYN Crohn's disease of both small and large intestine with fistula ([facility]/HCC) (Primary Dx); Colostomy status ([facility]/HCC); Rectal urgency; Abdominal cramping 04/10/2025 External Device [...] PNEUM OCOCCAL CONJUGATE VACCINE 20-VALENT (PCV20), POLYSACCHARIDE [id number] CONJUGATE, ADJUVANT 0.5 ML (PF) IM 12/20/2023 [...] on file Legal Sex Female 6:59 AM CESSPOOL CLEANER Gender Identity Not on file Sexual Orientation [...] 08/08/2025 1:00 PM CDT [facility] [address] [facility] [address] [place] [address] [place] [address] [facility] [address] [phone] Health Maintenance Due Date Last Done Comments [...] small and large intestine with fistula (CMS/HCC) NM COLONOSCOPY FLX DX W/COLLJ SPEC WHEN PFRMD [...] (CMS/HCC) FLEXIBLE SIGMOIDOSCOPY REPORT 11/21/2024 10:47 AM CESSPOOL CLEANER from Last 3 Months or Most Recently Relevant to Health Maintenance Results * COLONOSCOPY REPORT (05/15/2025 9:56 AM CDT) Narrative Procedure Note Ivy Ugalde MD - 05/15/2025 9:56 AM CDT [facility] End[facility] Patient Name: Monica Marie [...] Addenda: 0 Procedure Date: 05/15/2025 9:17:52 [address] [address] Ivy Ugalde MD GI PROCEDURE ORDERABLES F inal Result * PATHOLOGY (05/15/2025 9:46 AM CDT) CASE REPORT Surgical Pathology Report Case: [id number] Authorizing Provider: Ivy Ugalde MD Collected: 05/15/2025 09:46 AM Ordering Location: [facility] Endoscopy Received: 05/15/2025 02:02 PM [facility] Pathologist: Deyvi Maguire MD Specimens: A) - Small Intestine, ileum bx B) - Colon, right, bx C) - Colon, left, bx 9:54 AM T [facility] FINAL DIAGNOSIS A. Small bowel, ileum, biopsy: [...] No granuloma or dysplasia. 9:54 AM T [facility] at 0954 CDT GROSS DESCRIPTION The specimens [...] It is entirely submitted in cassette C1. [facility] 9:54 AM [facility] MICROSCOPIC DESCRIPTION The slides are labeled [id number] and Monica Marie. Sections of the ileum [...] or dysplasia is identified. 9:54 AM T [facility] OPERATIVE PROCEDURE 1: COLONOSCOPY 9:54 AM T [facility] CLINICAL INFORMATION A Hx of Crohn's Hx of Crohn's Crohn's disease of both small and large intestine with fistula ([facility]/HCC) [K50.813] K50.813-Crohn's disease of both small and large intestine with fistula ([facility]/HCC) 9:54 AM T [facility] COMMENT Special stain, immunohistochemical, and/or in situ hybridization results are interpreted with controls that demonstrate appropriate staining reactions. Note on use of immunohistochemistry reagents and in situ hybridization probes: These tests were developed and their performance characteristics determined by [facility], Department of Laboratory Medicine. It has not [...] part or completely in the following laboratories: [facility], [place] #[id number] [address] [place] [address] [facility], [place] #[id number] [address] [place] [address] [facility], [place] #[id number] [address] [place] [address] This report was created with the Eoe[employer] voice-activated dictation system. Inherent to this system is the possibility of syntax, grammar, punctuation and other errors that could impact the interpretation of the report. If there are interpretative questions about aspects of this report, please contact the performing pathologist. 9:54 AM [facility] Tissue (Small Intestine) Collection / Unknown 05/15/2025 9:46 AM CDT 05/15/2025 2:02 PM CDT Comment:Hx of Crohn's Tissue specimen (specimen) (Colon, right) Collection / Unknown 05/15/2025 9:46 AM CDT 05/15/2025 2:02 PM CDT Comment:Hx of Crohn's Tissue specimen (specimen) (Colon, left) 05/15/2025 9:46 AM CDT 05/15/2025 2:02 PM CDT Comment:Hx of Crohn's Ivy Ugalde MD PATHOLOGY/CYTOLOGY ORDERGentry VAZQUEZ Final Result [facility]# [id number] [address] [place] [address] * QUANTIFERON TB GOLD (04/11/2025 1:24 PM [...] T-lymphocytes. For additional information, please refer to https://education.Gungroo.Mocavo/faq/OCY133 (This link is being provided for informational/ educational purposes only.) FASTING:NO FASTING: NO Test Performed at: [facility] [address] [place] [address] Denise Thomas MD Blood 04/11/2025 1:24 PM CDT 04/11/2025 1:24 PM CDT Fadia Herrmann ANP CHEMISTRY ORDERABLES Fi nal Result [facility] [phone] [facility] [address] [place] [address] * (ABNORMAL) CBC WITH DIFFERENTIAL (04/11/2025 1:24 [...] Comment: FASTING:NO FASTING: NO Test Performed at: [place] [address] [place] [address] [facility] Blood 04/11/2025 1:24 PM CDT 04/11/2025 1:24 PM CDT Fadia Herrmann ANP HEMATOLOGY ORDERABLES F inal Result Performing Organization Address City/[facility] Code Phone Number [facility] [phone] [place] [address] [place] [address] * C-REACTIVE PROTEIN (04/11/2025 1:24 PM CDT) Pathologist [facility] CRP 7.1 <8.0 mg/L [facility] [place] Comment: FASTING:NO FASTING: NO Test Performed at: [facility] [place] [address] [place] [address] [facility] Blood 04/11/2025 1:24 PM CDT 04/11/2025 1:24 PM CDT Fadia Herrmann ANP CHEMISTRY ORDERABLES Fi nal Result Performing Organization Address City/[facility] Code Phone Number [facility] [phone] [place] [address] [place] [address] * COMPREHENSIVE METABOLIC PANEL (04/11/2025 1:24 PM CDT) GLUCOSE 86 65 - 99 mg/dL [facility] [place] Comment: Fasting reference interval BUN 13 7 - 25 mg/dL [place] CREATININE 0.90 0.50 - 1.05 mg/dL [place] GFR 73 > OR = 60 mL/min/1. 73m2 [facility] [place] BUN/CREAT RATIO SEE NOTE: 6 - 22 (calc) [facility] Comment: Not Reported: BUN and Creatinine are within reference range. SODIUM 140 135 - 146 mmol/L [facility] POTASSIUM 3.9 3.5 - 5.3 mmol/L [facility] CHLORIDE 103 98 - 110 mmol/L [facility] CO2 29 20 - 32 mmol/L [facility] CALCIUM 9.8 8.6 - 10.4 mg/dL [facility] TOTAL PROTEIN 7.9 6.1 - 8.1 g/dL [facility] ALBUMIN 4.3 3.6 - 5.1 g/dL [facility] GLOBULIN 3.6 1.9 - 3.7 g/dL (calc) [facility] ALBUMIN/GLOBULIN RATIO 1.2 1.0 - 2.5 (calc) [facility] BILIRUBIN TOTAL 0.3 0.2 - 1.2 mg/dL [facility] ALKALINE PHOSPHATASE 85 37 - 153 U/L [facility] AST 13 10 - 35 U/L [facility] ALT 13 6 - 29 U/L [facility] Comment: FASTING:NO FASTING: NO Test Performed at: [place] [address] [place] [address] Denise Jack Blood 04/11/2025 1:24 PM CDT 04/11/2025 1:24 PM CDT Fadia Herrmann [facility] CHEMISTRY ORDERABLES nal Result [facility] [phone] [place] [address] [place] [address] * FLEXIBLE SIGMOIDOSCOPY REPORT (11/21/2024 10:47 AM CESSPOOL CLEANER) Narrative Procedure Note Ivy Ugalde MD - 11/21/2024 10:47 AM CST [facility] Patient Name: Monica Marie [...] Addenda: 0 Procedure Date: 11/21/2024 10:17:22 AM [address] [address] Ivy Ugalde MD GI PROCEDURE ORDERABLES F inal Result from Last 3 Months or Most Recently Relevant to Health Maintenance Insurance MEDICARE PART A AND B [employer] Advance Directives For more information, please contact: [phone] * Full Code (Latest Code Status on [...] 10:24 AM 04/04/2024 2:35 PM Care Teams Statistician Relationship Specialty Start Date End Date Joaquim Ferguson MD [address] [phone] PCP - General Family Practice 01/11/23
--- OUTSIDE RECORDS SUMMARY | 2025-05-31 14:14 | XMS_ITS | Encounter Summary ---
Author Organization [facility] Address [address] [place] [address] Care Team Providers Care Customer Support Technician Name Role Phone Joaquim Ferguson MD Primary Care Provider Encounter Details Date Type Department Care Team (Latest Contact Info) Description 12/01/2024 Results Follow-Up [facility] Gastroenterology [facility] [address] [facility] [address] [place] [address] [place] [address] [facility] [address] [place] [address] [address] ABDOMEN PELVIS W CONTRAST Social History Tobacco Use Types Packs/Day Years Used Date Smoking Tobacco: Never Smokeless Tobacco: Never Alcohol Use Standard Drinks/Week Comments Never 0 (1 standard drink = 0.6 oz pur e alcohol) Comments No Sex and Gender Information Value Date Recorded Sex Assigned at Not on file Legal Sex 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 Let's see how this pain plays out. Update me next week with how it is doing. Ivy Ugalde MD ET MAKING MACHINE OPERATOR documented in this encounter Plan of Treatment Upcoming Encounters Date Type Department Care Team (Late st Contact Info) Description 08/08/2025 1:00 PM CDT Office Visit [facility] [address] [facility] [address] [place] [phone] [place] [address] [facility] [address] [place] [phone] documented as of this encounter Visit Diagnoses Not on filedocumented in this encounter Additional Health Concerns Assessment Noted Time PHQ-9 Depression Total Score: 3 03/27/20 24 12:00 PM CDT documented as of this encounter Care Teams Customer Support Technician Relationship Specialty Start Date End Date Joaquim Ferguson MD [address] [facility] [address] [place] [address] PCP - General Family Practice 01/11/23 documented as of this encounter
--- OUTSIDE RECORDS SUMMARY | 2025-05-31 14:14 | XMS_ITS | Encounter Summary ---
Author Organization [facility] Address [facility] [place] [address] Care Team Providers Care Grades 1 Thru 5 Teacher Name Role Phone Cynthia Oakley MD Primary Care Provider [phone] Cynthia Oakley MD Primary Care Provider [phone] Kenneth Thayer MD Primary Care Provider [phone] Kenneth Thayer MD Primary Care Provider [phone] Kenneth Thayer MD Primary Care Provider [phone] Kenneth Thayer MD Primary Care Provider [phone] Kenneth Thayer MD Primary Care Provider [phone] [...] Primary Care Provider Angi Chew MD Unavailable [phone] Encounter Details Date Type Department Care Team (Latest Contact Info) Description 08/10/2014 Abstract [facility] Madina Marin MD Social History Tobacco Use Types Packs/Day Years Used Date Smoking Tobacco: Never Assessed Comments Unknown Sex and Gender Information Value Date Recorded Sex Assigned at Female 01/11/2025 2:51 PM DEBT RECOVERY OFFICER Legal Sex Female 7:01 PM CDT Gender Identity Not on file Sexual Orientation Not on file documented as of this encounter Plan of Treatment Upcoming Encounters Date Type Department Care Team (Late st Contact Info) Description 06/04/2025 9:00 AM CDT Appointment [facility] [place] [place] [address] Ame Callejas, [address] [place] [address] documented as of this encounter Visit Diagnoses Not on filedocumented in this encounter Additional Health Concerns Infection Onset Date Last Indicated Resolved Time COVID-19 Rule Out 11/14/2021 11/14/2021 11/14/2021 10:58 AM DEBT RECOVERY OFFICER COVID-19 Rule Out 10/29/2023 10/29/2023 10/29/2023 1:20 PM DEBT RECOVERY OFFICER COVID-19 Rule Out 01/03/2024 01/03/2024 01/03/2024 4:13 PM DEBT RECOVERY OFFICER COVID-19 Rule Out 04/19/2024 04/19/2024 04/19/2024 10:24 AM CDT documented as of this encounter Care Teams Grades 1 Thru 5 Teacher Relationship Specialty Start Date End Date Cynthia Oakley MD PCP - General 04/19/17 12/19/17 Cynthia Oakley MD PCP - General 04/02/17 04/18/17 Kenneth Thayer MD [address] [place], [place] [address] PCP - General 02/22/17 04/01/17 Kenneth Thayer MD [address] [place], [place] [address] PCP - General 12/18/16 02/21/17 Kenneth Thayer MD [address] [place], [place] [id number] PCP - General 12/11/16 12/17/16 Kenneth Thayer MD [address] [place] [address] PCP - General 12/04/16 12/10/16 Kenneth Thayer MD [address] [place], [place] [address] PCP - General 08/17/16 12/03/16 Kenneth Thayer MD [address] [place], [place] [address] PCP - General 03/20/16 08/16/16 Kenneth Thayer MD [address] [place], [place] [address] PCP - General 01/06/16 03/19/16 Kenneth Thayer MD [address] [place], [place] [address] PCP - General 01/01/16 01/05/16 Kenneth Thayer MD [address] [place], [place] [address] PCP - General 11/04/15 12/31/15 Kenneth Thayer MD [address] [place], [place] [address] PCP - General 10/19/15 11/03/15 Kenneth Thayer MD [address] [place] [address] PCP - General 10/18/15 10/18/15 Kenneth Thayer MD [address] [place], [place] [address] PCP - General 10/07/15 10/17/15 Kenneth Thayer MD [address] [place], [place] [address] PCP - General 09/09/15 10/06/15 Kenneth Thayer MD [address] [place], [place] [address] PCP - General 05/29/15 09/08/15 Kenneth Thayer MD [address] [place], [place] [address] PCP - General 05/15/15 05/28/15 Kenneth Thayer MD [address] [place], [place] [address] PCP - General 02/27/15 05/14/15 Kenneth Thayer MD [address] [place], [place] [address] PCP - General 02/16/15 02/26/15 Kenneth Thayer MD [address] [place] [address] PCP - General 01/04/15 02/15/15 Kenneth Thayer MD [address] [place], [place] [address] PCP - General 11/30/14 01/03/15 Kenneth Thayer MD [address] [place], [place] [address] PCP - General 10/11/14 11/29/14 Kenneth Thayer MD [address] [place], [place] [address] PCP - General 09/07/14 10/10/14 Kenneth Thayer MD [address] [place], [place] [address] PCP - General 08/24/14 09/06/14 Kenneth Thayer MD [address] [place], [place] [address] PCP - General 08/22/14 08/23/14 Kenneth Thayer MD [address] [place], [place] [address] PCP - General 08/17/14 08/21/14 Kenneth Thayer MD [address] [place] [address] PCP - General 06/20/14 08/16/14 Joaquim Ferguson MD [address] [facility] [address] [place] [address] PCP - General FAMILY PRACTICE 12/20/17 Angi Chew MD [address] [facility] [address] [place] [address] Iris Stave Log Ripsaw Operator INTERVENTIONAL CARDIOLOGY 04/11/18 documented as of this encounter
--- OUTSIDE RECORDS SUMMARY | 2025-05-31 14:14 | XMS_ITS | Encounter Summary ---
Author Organization [facility] Healthcare Address [address] [place] [address] Care Team Providers Care Wet Pan Operator Name Role Phone Joaquim Ferguson MD Primary Care Provider [phone] Abhijit Quispe MD Unavailable [phone] Martha Chong MD Unavailable [phone] Robyn Richardson NP Unavailable [phone] Shruthi Oakley MD Unavailable [phone] Rylan March MD Unavailable [phone] Ivy Ugalde MD Unavailable [phone] Desirae Mukherjee [facility] Primary Care Provi phan Francisco Wild MD Unavailable [phone] Reason for Visit * Reason Onset Date Comments follow up for IV extravastation during CT scan 0 n 05/07/21 05/08/2021 Encounter Details Date Type Department Care Team (Late st Contact Info) Description 05/08/2021 Telephone [facility] Imaging [address] [address] Mela Sofia RN follow [...] file Legal Sex Female 8:40 PM RETAIL DEPARTMENT SUPERVISOR Gender Identity Female 01/27/2019 10:37 AM CDT Sexual Orientation Straight 10/10/2021 6: 35 AM RETAIL DEPARTMENT SUPERVISOR documented as of this encounter Plan of Treatment Not on file documented as of this encounter Visit Diagnoses Not on filedocumented in this encounter Additional Health Concerns Infection Onset Date Last Indicated Resolved Time COVID: Recovered Comment:COVID+ 11/14/21. Meets COVID Recovered criteria. Results in care everywhere. Kristin Susanna 12/10/2021 11/24/2021 12/10/2021 03/14/2022 3:05 AM C DT documented as of this encounter Care Teams Wet Pan Operator Relationship Specialty Start Date End Date Joaquim Ferguson MD [address] [address] PCP - General 02/14/18 02/11/25 Desirae Mukherjee DNP [address] [address] PCP - General Family Medicine 02/12/25 Abhijit Quispe MD [address] [phone] [place] [address] Surgeon Colon and Rectal Surgery 12/01/21 Martha Chong MD [address] [phone] [place] [address] Gastroenterology 12/07/21 12/15/23 [place] [address] [place] [address] Nurse Practitioner Wound Care 02/27/23 [place] [address] [place] [address] Consulting Physician Dermatology 02/27/23 Rylan March MD [address] [facility] [place] [address] Consulting Physician Gastroenterology 12/16/23 4 Ivy Ugalde MD [address] [facility] [address] [place] [address] Referring Physician Gastroenterology 04/22/24 Francisco Wild MD [address] [facility] [place] [address] Dermatology 03/27/25 documented as of this encounter
--- NOTE | 2025-05-31 14:25 | ED.EYEPROB ---
HPI - Eye Problem General Chief complaint: Eye Problems Stated complaint: Swelling right eye-blurry vision-no known inj Time Seen by Provider: 05/31/25 13:11 Source: patient Mode of arrival: ambulatory Limitations: no limitations History of Present Illness HPI Narrative: [age] year female for right eye pain and swelling. Noticed the pain 2 days ago and some redness and swelling specially in the right lower lid. She has pain when she moves her eyes around ambulate the pain is muscular skin underneath the eyeball. She was seen at urgent care and sent here to rule out orbital cellulitis. She denies any vision changes with me. Related Data Home Medications ?Medication ?Instructions ?Recorded ?Confirmed ?Last Taken ?Type calcium 315 mg (as 1 tablet PO DAILY 04/15/22 05/09/24 Unknown History citrate)-vitamin D3 6.25 mcg (250 unit) tablet (Citracal + Vitamin D Maximum) prednisolone 5 mg tablet 2.5 mg PO BID 04/15/22 05/09/24 Unknown History triamcinolone acetonide 10 mg/mL 2 mg Infiltration ONCE PRN 08/25/23 05/09/24 Unknown History suspension for injection (Kenalog) upadacitinib 15 mg tablet,extended 15 mg PO DAILY 08/25/23 05/09/24 Unknown History release 24 hr (Rinvoq) risankizumab-rzaa 360 mg/2.4 mL mg subcut 05/09/24 05/09/24 Unknown History (150 mg/mL) subcut wearable injector (Skyrizi) Allergies Allergy/AdvReac Type Severity Reaction Status Date / Time iodine AdvReac Intermediate Nausea Verified 05/31/25 11:26 Review of Systems Review of Systems: All systems reviewed & are unremarkable except as noted in HPI and below PMFSH Past Medical History Medical History 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 Anal fissure Ulcer Crohn disease Anxiety Surgical History Surgical History History of hysterectomy and still has ovaries per patient History of colostomy S/P laparoscopic surgery Tubal ligation status Family History Family History Other Asthma Cerebrovascular accident Diabetes mellitus Hypertension Social History Social History Smoking status: Never smoker Alcohol intake: never Substance use: never Lack of Transportation: No Lack of Food: Never True Current Housing: I Have Housing Concerned About Future Housing: No Difficulty Paying Gas/Electric Bills: No Difficulty Paying for Meds: No Currently Unemployed: No Education: Master's Degree or Higher Difficulty w/ Childcare or Family Care: No Living arrangements: with family Occupation/Education: occupation Gender identity (if verbalized by the patient): Female Sexual Orientation (if Verbalized by the Patient): Straight or Heterosexual Exam Narrative: Constitutional: Generally well appearing, no acute distress Head: Atraumatic, no deformities. Eyes: Pupils equal, round, and reactive to light. No nystagmus. Visual acuity intact and equal. Extraocular movements intact. No visual field deficits. No conjunctivitis, chemosis, discharge. No proptosis. Right lower lid shows pustule at the lid margin with surrounding erythema, warmth, swelling. Neck: Supple, no tracheal deviation, no JVD. ENMT: Mucous membranes moist Cardiovascular: S1, S2 auscultated. No murmurs, rubs, or gallops. No S3/S4. Normal Distal pulses. No peripheral edema. Respiratory: Lung sounds equal. No wheezes, rales, or rhonchi. Gastrointestinal: Abdomen was soft and non-tender. Non-distended. No rebound or guarding. Genitourinary: Deferred Musculoskeletal: Normal muscle tone and bulk. No obvious deformities or tenderness over extremities. Skin: No rashes. Neurological: Strength 5/5 in extremities. Cranial nerves I-XII grossly intact. Distal sensation intact. Mental Status: Awake, alert and oriented x3. Follows commands Course Vital Signs Vital signs: Vital Signs Temperature 36.6 C 05/31/25 11:29 Pulse Rate 75 05/31/25 11:29 Respiratory Rate 16 05/31/25 11:29 Blood Pressure 167/87 H 05/31/25 11:29 Pulse Oximetry 100 05/31/25 11:29 Oxygen Delivery Room Air 05/31/25 11:29 Temperature 36.6 C 05/31/25 11:29 Pulse Rate 75 05/31/25 11:29 Respiratory Rate 16 05/31/25 11:29 Blood Pressure 167/87 H 05/31/25 11:29 Pulse Oximetry 100 05/31/25 11:29 Oxygen Delivery Room Air 05/31/25 11:29 MDM - Eye Problem MDM Narrative Medical decision making narrative: Upon initial examination, appears patient has a stye however patient is quite nervous about possibly having infection especially over the cellulitis and she was sent here to rule it out so we will obtain CT orbit, staining for abrasion, David-Pen pressures. Fluorescein stain shows no uptake, no evidence of any abrasion or ulceration. Pressure is 17. CT shows no evidence of orbital cellulitis. Shows periorbital cellulitis. Will discharge with Polytrim eye drops and Keflex. Pt feeling improved and would like to go home at this point. Return precautions were given to the patient include any new or worsening symptoms or development of and not limited to any chest pain, shortness of breath, lightheadedness, abdominal pain, fevers, chills. Patient understands and agrees. They are to follow-up with her PCP. All questions were answered. I reviewed and interpreted the patient's vital signs, pulse oximetry, manager cardiac, history, allergies, and labs and imaging workup. Lab Data 05/31/25 15:12 05/31/25 15:54 Labs: Lab Results 05/31/25 05/31/25 Range/Units 15:12 15:54 WBC 8.8 (4.5-10.0) K/mm3 RBC 4.59 (4.2-5.4) M/mm3 Hgb 13.7 (12.0-15.0) g/dL Hct 42.7 (37.0-47.0) % MCV 93.0 (80-100) fl MCH 29.8 (26-34) pg MCHC 32.1 (32-36) g/dl RDW 13.0 (11.5-14.5) % Plt Count 247 (150-375) k/mm3 MPV 11.1 H (7.4-10.4) fl Immature Gran % (Auto) 0.3 (0-0.5) % Neut % (Auto) 58.7 (45.5-73.1) % Lymph % (Auto) 30.2 (18.3-44.2) % [place] % (Auto) 7.8 (2.6-8.5) % Eos % (Auto) 2.4 (0-4.4) % Baso % (Auto) 0.6 (0.2-1.2) % Lymph # (Auto) 2.64 (0.9-3.2) K/mm3 [place] # (Auto) 0.7 H (0.1-0.6) K/mm3 Eos # (Auto) 0.2 (0-0.3) K/mm3 Baso # (Auto) 0.1 (0.0-0.1) K/mm3 Abs Immat Gran (auto) 0.03 (0.00-0.031) K/mm3 Absolute Neuts (auto) 5.1 (1.3-6.7) K/mm3 Absolute Nucleated RBC 0.000 (0.0-0.012) K/mm3 Nucleated RBC % 0.0 (0.0-0.2) % Sodium 138 (137-145) mmol/L Potassium 4.0 (3.4-5.0) mmol/L Chloride 106 (98-107) mmol/L Carbon Dioxide 27 (22-30) mmol/L Anion Gap 5 (4-12) mmol/L BUN 12 (7-17) mg/dL Creatinine 0.82 (0.7-1.0) mg/dL Estim Creat Clear Calc 61 ml/min Estimated GFR > 60 (59 - ) Glucose 82 (65-110) mg/dL Calcium 9.5 (8.4-10.2) mg/dL Total Bilirubin 0.3 (0.2-1.3) mg/dL AST 31 (14-36) U/L ALT 26 (6-35) U/L Alkaline Phosphatase 102 (38-126) U/L Total Protein 8.7 H (6.3-8.2) g/dL Albumin 4.2 (3.5-5.1) g/dL Discharge Plan Discharge Clinical Impression: Preseptal cellulitis of right eye External hordeolum Qualifiers: Laterality: right Eyelid: lower Qualified Code(s): H00.012 - Hordeolum externum right lower eyelid Patient Disposition: Home Condition: Stable Instructions: Antibiotic Form, Stye (ED), Periorbital Cellulitis (ED) Patient Language: [place] Prescriptions: New polymyxin B sulf-trimethoprim 10,000 unit- 1 mg/mL drops 1 drp RIGHT EYE QID 5 Days Qty: 10 0RF cephalexin 500 mg capsule 500 mg PO Q8H 5 Days Qty: 15 0RF No Action Skyrizi 360 mg/2.4 mL (150 mg/mL) wearable injector subcut valacyclovir 500 mg tablet 500 mg PO DAILY Qty: 90 3RF estradiol [Yuvafem] 10 mcg tablet 10 mcg vaginal 2XW Qty: 24 3RF Rx Instructions: Maintenance dose calcium citrate-vitamin D3 [Citracal + D Maximum] 315 mg-6.25 mcg (250 unit) tablet 1 tablet PO DAILY prednisolone 5 mg tablet 2.5 mg PO BID Rinvoq 15 mg tablet extended release 24 hr 15 mg PO DAILY Kenalog 10 mg/mL suspension 2 mg Infiltration ONCE PRN Rx Instructions: at Derm office acetaminophen 500 mg tablet 1,000 mg PO TID PRN (Reason: benjamin) 7 Days Qty: 42 0RF Follow-up/Referrals: PHYSICIAN NOT ON STAFF,NONSTAFF [Primary Care Provider] - Time of Disposition: 17:37
[2025-05-31 15:19] LABS: Hematocrit 42.7 % (37.0-47.0); Hemoglobin 13.7 g/dL (12.0-15.0); Immature Granulocyte Percent A 0.3 % (0-0.5); Lymphocytes Absolute Auto 2.64 K/mm3 (0.9-3.2); Mean Corpuscular HGB Conc 32.1 g/dl (32-36); Mean Corpuscular Hemoglobin 29.8 pg (26-34); Mean Corpuscular Volume 93.0 fl (80-100); Nucleated Red Blood Cells Absolute Auto 0.000 K/mm3 (0.0-0.012); Nucleated Red Blood Cells Perc 0.0 % (0.0-0.2); Platelet Count Result 247 k/mm3 (150-375); Red Blood Count 4.59 M/mm3 (4.2-5.4); White Blood Count 8.8 K/mm3 (4.5-10.0)
[2025-05-31 16:28] LABS: Alanine Aminotransferase 26 U/L (6-35); Albumin Level 4.2 g/dL (3.5-5.1); Alkaline Phosphatase 102 U/L (38-126); Anion Gap 5 mmol/L (4-12); Aspartate Amino Transferase 31 U/L (14-36); Bilirubin,Total 0.3 mg/dL (0.2-1.3); Blood Urea Nitrogen 12 mg/dL (7-17); Calcium 9.5 mg/dL (8.4-10.2); Carbon Dioxide 27 mmol/L (22-30); Chloride 106 mmol/L (98-107); Estimated CRCL calculation 61 ml/min; Estimated Glomerular Filt Rate > 60; Glucose 82 mg/dL (65-110); Potassium 4.0 mmol/L (3.4-5.0); Sodium 138 mmol/L (137-145); Total Protein 8.7 g/dL (6.3-8.2)
== END 2025-05-31 17:53 | disposition home or self-care (01) ==
PROVIDERS: Emergency Provider Emergency Medicine
DX: H00.012 Hordeolum externum right lower eyelid (principal); L03.213 Periorbital cellulitis; K50.90 Crohn's disease, unspecified, without complications
CPT/HCPCS: 36415; 70480; 80053; 85025; 87070; 87075; 87205; 96374; 99284; J1200